=== PATIENT | female | born 1945 | race Caucasian/White ===

== ENCOUNTER 2017-05-28 08:27 | Outpatient (CLI) | payer MEDICARE ==
[2017-05-28] MEDS ORDERED: Lidocaine 2% Jelly 5 ML TUBE ONE (17:18)
[2017-05-28] MEDS ORDERED: Sodium Chloride 0.9% 15 ML NEB ONE (17:18)
--- NOTE | 2017-05-29 10:47 | PRG ---
DATE OF SERVICE: 05/28/2017 CHIEF COMPLAINT: Two wounds on the right foot. HISTORY OF PRESENT ILLNESS: This is a 72-year-old female who presents to the clinic today with multi ple wounds on her right lower leg. She states that these have been there for several months, possibl y since January. She says it is unknown as to how they developed, just started nursing them and they were initially treated with Medihoney, although today when she presents, she has Adaptic and alginate dressing and placed over the wounds. She has been at the [facility], but will b e soon going home with home health for wound care. She has had significant infections, is on PICC li ne and is taking Flagyl and rifampin currently. Relates some minor pain to the wound site. Past surgical history, medications, allergies, family history and social history are documented on paper chart. REVIEW OF SYSTEMS: Constitutional: Denies nausea, vomiting, fevers or chills. Musculoskeletal: Re lates decreased in mobility and pain to the lower extremities. Neurologic: Denies numbness or tingl ing in the foot. PAST SURGICAL HISTORY: Of note is a fem-pop pass to the right lower extremity. PHYSICAL EXAMINATION: VITAL SIGNS: Temperature 97.5, pulse 60, respirations 17, blood pressure 141/62, blood sugar was 114 this morning. CONSTITUTIONAL: The patient is in no acute distress. She is alert and oriented x3. She is overweig ht, but her appearance is consistent with her age. VASCULAR EXAMINATION: Dorsalis pedis and posterior tibial pulses were nonpalpable. I reviewed her r ecent CTA with run-off which did show three-vessel run-off to the foot following her fem-pop bypass. NEUROLOGIC EXAMINATION: Light touch and protective threshold are grossly intact. DERMATOLOGICAL EXAMINATION: There is a right wound on the plantar posterior aspect of the heel. Thi s is a 100% dry stable eschar measures 3.5 cm x 3.5 cm x 0.1 cm. There is no tenderness to palpation . No periwound erythema, edema, or warmth, no drainage or other signs of infection. On the posterio r aspect of the right Achilles tendon, lower leg, there is a 3 cm x 4 cm x 0.4 cm in depth wound and has a 30% granulation tissue around 40% slough and 30% of tendon within the wound, so the Achilles te ndon is exposed with plantar flexion, dorsiflexion of the ankle is clearly visible. No periwound yolanda thema, edema, or warmth, no drainage. No malodor. ASSESSMENT: Unstageable pressure ulcers to the posterior aspect of the right leg x2. PLAN: 1. This can be difficult wounds into healed first and foremost, we need to remove the pressure from the area and so appropriate offloading should be performed whenever in bed or seated. 2. Going to attempt to get some granulation tissue performed over the tendon and on the posterior le g, we start with collagen dressing Promogran to this area. 3. On the pressure ulceration, I am going to see if we know that she has sufficient blood flow to th e leg, we can destabilize the eschar and debride it and hopefully get this to be more acute wound whi ch will actively heal, so applied DuoDERM to this wound. 4. She will follow up with me in 1 week and we will reevaluate and determine if this treatment plan is appropriate for continued therapy or she can return sooner should she have any concerns before james t time.
== END 2017-05-28 08:28 | disposition home or self-care (01) ==
LOC: WCC 08:27
PROVIDERS: ATTEND Podiatrist Foot & Ankle Surgery
DX: L89.890 Pressure ulcer of other site, unstageable (principal)
CPT/HCPCS: 97139; 97602; G0463; 99204; A4218

== ENCOUNTER 2017-06-03 14:00 | Outpatient (CLI) | payer MEDICARE ==
--- NOTE | 2017-06-03 20:37 | HP ---
DATE OF SERVICE: 06/03/2017 HISTORY OF PRESENT ILLNESS: Ms. Sachi Negron is a very pleasant 72-year-old who presents to the wound center for evaluation of 2 ulcerations of the right foot. One ulceration is located over the r ight heel, another ulceration is located over the right Achilles tendon. The patient states that she developed multiple blisters of her right lower extremity after undergoing surgery in January of this year. Specifically, the patient underwent surgery for infected right total knee with Streptococcus s pecies. During the patient's hospital stay, she was seen in consultation by Dr. Brad Prieto of Inf ectious Diseases and is still receiving IV antibiotics under the direction of Infectious Diseases. T he patient states that she will complete a course of Rocephin IV in 9 more days. The patient states that subsequent to the preceding procedure, she was transferred to [facility] where treatment for the ulcerations consisted of debridement in conjunction with dressing changes. The patient states that s he received a trial of Medihoney as well as a trial of Promogran and Adaptic. She states that at [facility] also a trial of Betadine applied to the wounds was undertaken. The patient states that her ul cerations have been dressed with Kerlix. The patient states that she developed multiple blisters of her right lower extremity after surgery for the infected right total knee in January of this year. Sh e states that of the wounds, which developed from the blisters only 2 remain. The patient was transf erred to [facility] after a stay at [facility] and Ms. Negron states that she has been discharge d from [facility] and is now receiving dressing changes with the assistance of Home Health. T he patient was referred to the Wound Center by Dr. Hill. PAST MEDICAL HISTORY: 1. Diabetes mellitus. 2. Hypertension. 3. Hypothyroidism. 4. Coronary artery disease. 5. Osteoarthritis. 6. Hepatitis A. 7. Obstructive sleep apnea. 8. Peripheral vascular disease. 9. Nephrolithiasis. PAST SURGICAL HISTORY: 1. Coronary artery bypass grafting. 2. Hysterectomy. 3. Right rotator cuff repair. 4. Tonsillectomy. 5. Bunionectomy. 6. Right humerus surgery. 7. Pacemaker placement. 8. Left knee arthroplasty. 9. Back surgery x2. 10. Carotid surgery. 11. Vulvar surgery. 12. Right knee replacement. 13. Left shoulder surgery. 14. Bilateral cataract surgery. 15. Appendectomy. 16. Surgery for infected right total knee with Streptococcus species, which included placement of an tibiotic spacer. 17. Right iliofemoral endarterectomy with patch angioplasty/right common femoral to above knee popli teal artery bypass. MEDICATIONS: 1. Aspirin 81 mg. 2. Atenolol. 3. Escitalopram. 4. Gabapentin. 5. Lantus. 6. Levothyroxine. 7. Lisinopril. 8. Metformin. 9. Laurel. 10. Simvastatin. 11. Flagyl. 12. Rifampin. 13. Triamterene. 14. Vitamin D. ALLERGIES: PLAVIX, PENICILLIN, SULFA, CODEINE, and TORADOL. SOCIAL HISTORY: Social significant for tobacco use in the past. The patient states that she began s moking at 17 years of age and stopped smoking 12 years ago. She states that over this period of time , she smoked up to 2 packs of cigarettes per day. The patient states that she stopped consuming alco hol 12 years ago. She states that she consumed alcohol on a "social" basis in the past. FAMILY HISTORY: Significant for diabetes mellitus. The patient states that her mother, father, and all of her siblings were diagnosed with diabetes mellitus. Family history is significant for coronar y artery disease. The patient states that her father was diagnosed with coronary artery disease. PHYSICAL EXAMINATION: VITAL SIGNS: Temperature 97.4, pulse 64, respirations 17, blood pressure 125/61, Accu-Chek 173. GENERAL: A 72-year-old female sitting on wheelchair in examination room in no acute distress. HEENT: Normocephalic, atraumatic. NECK: No nuchal rigidity. CHEST: Clear to auscultation. CARDIAC: Regular rate and rhythm. ABDOMEN: Soft. EXTREMITIES: An ulceration of the right heel is present, which measures approximately 3.8 x 3.8 cm. The entire wound bed is covered by dry stable eschar. Another ulceration over the right Achilles te ndon is present, which measures approximately 3.0 x 4.0 cm. Granulation tissue is present only over the periphery of the wound. Tendon is visible within the wound margins. No purulent drainage is ass ociated with the wound. No cellulitis of the right foot is appreciated. No maceration of the skin o f the periwound is noted. A dorsalis pedis pulse is easily palpable on the right. Mild to moderate edema of the right foot is present on today's exam. ASSESSMENT AND PLAN: 1. Ulcerations of right heel as described above. Arrangements will be made for the initiation of ne gative pressure therapy for the ulceration over the right Achilles tendon. Arrangements will be made for dressing changes of the wound VAC 3 times per week with the assistance of home health. I will s ee Ms. Negron again in one week. Silverlon, Webril, and the Lyst Coban two-layer compression system adamaris l be applied to the ulcerations of the right foot today. These dressing will be discontinued once ne gative pressure therapy is initiated. The patient, as stated above, is receiving IV antibiotics as w ell as p.o. antibiotics under the direction of Infectious Diseases. 2. Hypertension. 3. Diabetes mellitus. The patient's Accu-Chek in clinic today is 173. The patient has been told th at for optimal wound healing, her blood glucoses should remain below 150. 4. Hypothyroidism. 5. Coronary artery disease. 6. Osteoarthritis. 7. Hepatitis A. 8. Obstructive sleep apnea. 9. Peripheral vascular disease. 10. Nephrolithiasis.
== END 2017-06-03 14:01 | disposition home or self-care (01) ==
LOC: WCC 14:00
PROVIDERS: ATTEND Family Medicine
DX: L97.419 Non-pressure chronic ulcer of right heel and midfoot with unspecified severity (principal); E03.9 Hypothyroidism, unspecified; I25.10 Atherosclerotic heart disease of native coronary artery without angina pectoris; M19.90 Unspecified osteoarthritis, unspecified site; B15.9 Hepatitis A without hepatic coma; G47.33 Obstructive sleep apnea (adult) (pediatric); I73.9 Peripheral vascular disease, unspecified; N20.0 Calculus of kidney
CPT/HCPCS: 97139; 97602; G0463; 99204

== ENCOUNTER 2017-06-16 14:09 | Outpatient (CLI) | payer MEDICARE ==
--- NOTE | 2017-06-16 17:12 | PRG ---
DATE OF SERVICE: 06/16/2017 SUBJECTIVE: Ms. Sachi Negron is a very pleasant 72-year-old who presents to the Wound Center for evaluation of 2 ulcerations of the right foot. One ulceration is located over the right heel. Anot her ulceration is located over the right Achilles tendon. The patient previously stated that she dev eloped multiple blisters of her right lower extremity after undergoing surgery in 01/2017. Specifica lly, the patient underwent surgery for infected right total knee with Streptococcus species. During the patient's hospital stay, she was seen in consultation by Dr. Brad Prieto of Infectious Diseases . The patient today states that she has completed the prescribed course of IV antibiotics as per Inf ectious Diseases. The patient stated that subsequent to the preceding procedure, she was transferred to [facility] where treatment for the ulcerations consisted of debridement in conjunction with dressi ng changes. The patient stated that she received a trial of Medihoney as well as a trial of Promogra n and Adaptic. The patient stated that at [facility], also a trial of Betadine applied to the wound w as undertaken. The patient stated that her ulcerations had been dressed with Kerlix prior to being s een in the Wound Center. The patient was transferred to [facility] after a stay at [facility] and after discharge from [facility] received dressing changes with the assistance of Home [facility]. Ms. Negron was referred to the Wound Center by Dr. Hill. After being seen in the Wound Center, arrangements were made for the initiation of negative pressure therapy for the ulceration ove r the right Achilles tendon. The patient has been receiving dressing changes of the wound VAC 3 time s per week with the assistance of Home Health. OBJECTIVE: VITAL SIGNS: Temperature 97.8, pulse 65, respirations 18, blood pressure 140/59. Accu-Chek 178. EXTREMITIES: An ulceration of the right heel is present, which measures approximately 4.0 x 3.5 cm. The entire wound bed is again covered by dry stable eschar. Another ulceration over the right Achil les tendon is present, which measures approximately 3.3 x 3.0 cm. Granulation tissue is present with in the wound margins. It is still visible within the wound margins. No purulent drainage is associa teresa with the wound. No cellulitis of the right foot is appreciated. No maceration of the skin of th e periwound is noted. ASSESSMENT AND PLAN: 1. Ulcerations of right heel as described above. For the ulceration over the right Achilles tendon, negative pressure therapy will be continued with dressing changes of the wound VAC 3 times per week with the assistance of Home Health. The ulceration is covered by dry stable eschar is to be kept juanita an and dry. I will see Ms. Negron again in 3 weeks. As stated above, the patient has completed the p rescribed course of IV antibiotics as per Infectious Diseases. 2. Hypertension. 3. Diabetes mellitus. The patient's Accu-Chek in clinic today is 178. The patient has been reminde d that for optimal wound healing, her blood glucoses should remain below 150. 4. Hypothyroidism. 5. Coronary artery disease. 6. Osteoarthritis. 7. Hepatitis A. 8. Obstructive sleep apnea. 9. Peripheral vascular disease. 10. Nephrolithiasis.
== END 2017-06-16 14:10 | disposition home or self-care (01) ==
LOC: WCC 14:09
PROVIDERS: ATTEND Family Medicine
DX: E11.621 Type 2 diabetes mellitus with foot ulcer (principal); L97.419 Non-pressure chronic ulcer of right heel and midfoot with unspecified severity; E03.9 Hypothyroidism, unspecified; G47.33 Obstructive sleep apnea (adult) (pediatric); I10 Essential (primary) hypertension; I25.10 Atherosclerotic heart disease of native coronary artery without angina pectoris; N20.0 Calculus of kidney; M19.90 Unspecified osteoarthritis, unspecified site; I73.9 Peripheral vascular disease, unspecified
CPT/HCPCS: 97605

== ENCOUNTER 2017-07-07 11:33 | Outpatient (CLI) | payer MEDICARE ==
--- NOTE | 2017-07-07 13:43 | PRG ---
DATE OF SERVICE: 07/07/2017 HISTORY: Ms. Sachi Negron is a very pleasant 72-year-old, who presents to the Wound Center for e valuation of 2 ulcerations of the right foot. One ulceration is located over the right heel and anot her ulceration is located over the right Achilles tendon. The patient previously stated that she dev eloped multiple blisters of her right lower extremity after undergoing surgery in 01/2017. Specifica lly, the patient underwent surgery for infected right total knee with Streptococcus species. During the patient's hospital stay, she was seen in consultation by Dr. Brad Prieto of Infectious Diseases . The patient previously stated that she had completed the prescribed course of IV antibiotics as pe r Infectious Diseases. The patient stated that subsequent to the preceding procedure, she was transf erred to [facility] where treatment for the ulcerations consisted of debridement in conjunction with d ressing changes. The patient stated that she received a trial of Medihoney as well as a trial of Pro mogran and Adaptic. The patient stated that at [facility] also a trial of Betadine applied to the wou nd was undertaken. The patient stated that her ulcerations had been dressed with Kerlix prior to leo ng seen in the Wound Center. The patient was transferred to [facility] after a stay at [facility] and and after discharge from [facility], the patient received dressing changes with the assist hailey of Home Health. Ms. Negron was referred to the Wound Center by Dr. Hill. After being s een in the Wound Center, arrangements were made for the initiation of negative pressure therapy for t he ulceration over the right Achilles tendon. The patient has been receiving dressing changes of the wound VAC 3 times per week with the assistance of Home Health. PHYSICAL EXAMINATION: VITAL SIGNS: Temperature 97.5, pulse 60, respirations 17, and blood pressure 95/48. EXTREMITIES: An ulceration of the right heel is present, which measures approximately 4.4 x 4.4 cm. The entire wound bed is again covered by dry stable eschar. Another ulceration over the right Achil les tendon is present, which measures approximately 3.0 x 2.5 cm. Granulation tissue is present with in the wound margins. No purulent drainage is associated with the wound. No cellulitis of the right foot is appreciated. No maceration of the skin of the periwound is noted. A dorsalis pedis pulse i s easily palpable on the right. No significant edema of the right foot is present on exam today. ASSESSMENT AND PLAN: 1. Ulceration of right heel as described above. For the ulceration over the right Achilles tendon, negative pressure therapy will be continued with dressing changes of the wound VAC 3 times per week w ith the assistance of Home Health. The ulceration covered by dry stable eschar is to be kept clean a nd dry. I will see Ms. Negron again in one week. I have explained to the patient that because the ul ceration over the right Achilles tendon has been present for 4 weeks and because she has an easily pa lpable dorsalis pedis pulse on the right. She is a suitable candidate for treatment with a bioengine ered skin substitute, specifically Dermagraft. At the time of the patient's visit in 1 week, conside ration will be given to treatment with Dermagraft. The patient understands and is in agreement with the preceding treatment plan. As stated above, the patient has completed a prescribed course of IV a ntibiotics as per Infectious Diseases. 2. Hypertension. 3. Diabetes mellitus. Accu-Cheks will be obtained at the time of the patient's clinic visits. The patient has been reminded that for optimal wound healing. Her blood glucoses should remain below 150 . 4. Hypothyroidism. 5. Coronary artery disease. 6. Osteoarthritis. 7. Hepatitis A. 8. Obstructive sleep apnea. 9. Peripheral vascular disease. 10. Nephrolithiasis.
== END 2017-07-07 11:34 | disposition home or self-care (01) ==
LOC: WCC 11:33
PROVIDERS: ATTEND Family Medicine
DX: E11.621 Type 2 diabetes mellitus with foot ulcer (principal); L97.419 Non-pressure chronic ulcer of right heel and midfoot with unspecified severity; I10 Essential (primary) hypertension; E03.9 Hypothyroidism, unspecified; I25.10 Atherosclerotic heart disease of native coronary artery without angina pectoris; M19.90 Unspecified osteoarthritis, unspecified site; G47.33 Obstructive sleep apnea (adult) (pediatric); I73.9 Peripheral vascular disease, unspecified; N20.0 Calculus of kidney
CPT/HCPCS: 36416; 97606

== ENCOUNTER 2017-07-14 13:14 | Outpatient (CLI) | payer MEDICARE ==
--- NOTE | 2017-07-14 11:32 | PRG ---
DATE OF SERVICE: 07/14/2017 HISTORY: Ms. Sachi Negron is a very pleasant 72-year-old who presents to the Wound Center for evalu ation of 2 ulcerations of the right foot. One ulceration is located over the right heel and another ulceration is located over the right Achilles tendon. The patient previously stated that she develop ed multiple blisters of her right lower extremity after undergoing surgery in 01/2017. Specifically, the patient underwent surgery for infected right total knee with Streptococcus species. During the patient's hospital stay, she was seen in consultation by Dr. Brad Prieto of Infectious Diseases. T he patient previously stated that she had completed the prescribed course of IV antibiotics as per In fectious Diseases. The patient stated that subsequent to the preceding procedure, she was transferre to [facility] where treatment with the ulcerations consisted of debridement in conjunction with dres sing changes. The patient stated that she received a trial of Medihoney as well as a trial of Promog ran and Adaptic. The patient stated that at [facility] also a trial of Betadine applied to the wound was undertaken. The patient stated that her ulcerations had been dressed with Kerlix prior to being seen in the Wound Center. The patient was transferred to [facility] after a stay at [facility] and after discharge from [facility], the patient received dressing changes with the assistanc e of Home Health. Ms. Negron was referred to the Wound Center by Dr. Hill. After being seen in the Wound Center, arrangements were made for the initiation of negative pressure therapy for the ulceration over the right Achilles tendon. The patient continues to receive dressing changes of the wound VAC 3 times per week with the assistance of Home Health. OBJECTIVE: VITAL SIGNS: Temperature 97.5, pulse 60, respirations 17, blood pressure 105/40. Accu-Chek 140. EXTREMITIES: An ulceration of the right heel is present which measures approximately 3.0 x 4.2 cm. The entire wound bed is again covered by dry stable eschar. Another ulceration over the right Achill es tendon is present which measures approximately 2.9 x 3.5 cm. The dimensions of the wound at the t stephanie of the patient's last visit were approximately 3.0 x 2.5 cm. Granulation tissue is present withi n the wound margins. No purulent drainage is associated with the wound. No cellulitis of the right foot is appreciated. No maceration of the skin of the periwound is noted. A dorsalis pedis pulse is easily palpable on the right. No significant edema of the right foot is present on exam today. ASSESSMENT AND PLAN: 1. Ulceration of right heel as described above. For the ulceration over the right Achilles tendon, negative pressure therapy will be discontinued today. The ulceration will be dressed with Silverlon, Webril, and 3M Coban 2-layer compression system. I will see Ms. Negron again in one week. I have re iterated to the patient that she is a suitable candidate for treatment with Dermagraft because the ul ceration over the right Achilles tendon has been present since 06/03/2017, and because she has an eas maxine palpable dorsalis pedis pulse on the right. At the time of the patient's visit in 1 week, consid eration will be given to treatment with Dermagraft. The patient understands and is in agreement with the preceding treatment plan. As stated above, the patient has completed the prescribed course of I V antibiotics as per Infectious Diseases. 2. Hypertension. 3. Diabetes mellitus. The patient's Accu-Chek in clinic today is 140. The patient has been reminde d that for optimal wound healing, her blood glucoses should remain below 150. A hemoglobin A1c will be obtained today. 4. Hypothyroidism. 5. Coronary artery disease. 6. Osteoarthritis. 7. Hepatitis A. 8. Obstructive sleep apnea. 9. Peripheral vascular disease. 10. Nephrolithiasis.
== END 2017-07-14 13:15 | disposition home or self-care (01) ==
LOC: WCC 13:14
PROVIDERS: ATTEND Family Medicine
DX: E11.621 Type 2 diabetes mellitus with foot ulcer (principal); L97.419 Non-pressure chronic ulcer of right heel and midfoot with unspecified severity; I10 Essential (primary) hypertension; E03.9 Hypothyroidism, unspecified; I25.10 Atherosclerotic heart disease of native coronary artery without angina pectoris; M19.90 Unspecified osteoarthritis, unspecified site; G47.33 Obstructive sleep apnea (adult) (pediatric); I73.9 Peripheral vascular disease, unspecified; N20.0 Calculus of kidney; B15.9 Hepatitis A without hepatic coma
CPT/HCPCS: 29581; 36415; 83036

== ENCOUNTER 2017-07-21 08:49 | Outpatient (CLI) | payer MEDICARE ==
--- NOTE | 2017-07-21 09:57 | PRG ---
DATE OF SERVICE: 07/21/2017 HISTORY: Ms. Sachi Negron is a very pleasant 72-year-old who presents to the Wound Center for evalu ation of 2 ulcerations of the right foot. One ulceration is located over the right heel and an anoth er ulceration is located over the right Achilles tendon. The patient previously stated that she deve loped multiple blisters of her right lower extremity after undergoing surgery in 01/2017. Specifical ly, the patient underwent surgery for infected right total knee with Streptococcus species. During t he patient's hospital stay, she was seen in consultation by Dr. Brad Prieto of Infectious Diseases. The patient previously stated that she had completed the prescribed course of IV antibiotics as per Infectious Diseases. The patient stated that subsequent to the preceding procedure, she was transfe rred to [facility] where treatment for the ulcerations consisted of debridement in conjunction with dr roya mac. The patient stated that she received a trial of Medihoney as well as a trial of Prom ogran and Adaptic. The patient stated that at [facility], also a trial of Betadine applied to the wou nd was undertaken. The patient stated that her ulcerations had been dressed with Kerlix prior to leo ng seen in the Wound Center. The patient was transferred to [facility] after a stay at [facility] and and after discharge from [facility], the patient received dressing changes with the assist hailey of Home Health. Ms. Negron was referred to the Wound Center by Dr. Hill. After being s een in the Wound Center, arrangements were made for the initiation of negative pressure therapy for t he ulceration over the right Achilles tendon. The patient has completed a course of negative pressur e therapy for the ulceration over the right Achilles tendon. PHYSICAL EXAMINATION: VITAL SIGNS: Temperature 98.1, pulse 60, respirations 18, blood pressure 208/81, Accu-Chek 140. EXTREMITIES: An ulceration of the right heel is present, which measures approximately 3.5 x 5.5 cm. The entire wound bed is again covered by dry stable eschar. Another ulceration over the right Achil les tendon is present, which measures approximately 3.4 x 2.8 cm. The dimensions of the wound at the time of the patient's last visit were approximately 2.9 x 3.5 cm. Granulation tissue is present wit hin the wound margins. No purulent drainage is associated with the wound. No cellulitis of the righ t foot is appreciated. No maceration of the skin of the periwound is noted. A dorsalis pedis pulse is easily palpable on the right. No significant edema of the right foot is present on exam today. ASSESSMENT AND PLAN: 1. Ulceration of right heel as described above. For the ulceration over the right Achilles tendon, dressing changes of Silverlon, Webril, and the 3M Coban two-layer compression system will be continue d. I will see Ms. Negron again in one week. At this time, consideration will be given to treatment w ith Dermagraft. I have again reiterated to the patient that she is a suitable candidate for treatmen t with Dermagraft, because the ulceration over the right Achilles tendon has been present since 06/03 and because she has an easily palpable dorsalis pedis pulse on the right. The patient understa nds and is in agreement with the preceding treatment plan. As stated above, the patient has complete d the prescribed course of IV antibiotics as per Infectious Diseases. 2. Hypertension. 3. Diabetes mellitus. The patient's Accu-Chek in clinic today is 140. The patient has been reminde d that for optimal wound healing, her blood glucoses should remain below 150. 4. Hypothyroidism. 5. Coronary artery disease. 6. Osteoarthritis. 7. Hepatitis A. 8. Obstructive sleep apnea. 9. Peripheral vascular disease. 10. Nephrolithiasis.
[2017-07-23] MEDS ORDERED: Sodium Chloride 0.9% 15 ML NEB ONE (15:56)
== END 2017-07-21 08:50 | disposition home or self-care (01) ==
LOC: WCC 08:49
PROVIDERS: ATTEND Family Medicine
DX: E11.622 Type 2 diabetes mellitus with other skin ulcer (principal); L97.419 Non-pressure chronic ulcer of right heel and midfoot with unspecified severity; E03.9 Hypothyroidism, unspecified; I10 Essential (primary) hypertension; I25.10 Atherosclerotic heart disease of native coronary artery without angina pectoris; M19.90 Unspecified osteoarthritis, unspecified site; B15.9 Hepatitis A without hepatic coma; G47.33 Obstructive sleep apnea (adult) (pediatric); I73.9 Peripheral vascular disease, unspecified; N20.0 Calculus of kidney
CPT/HCPCS: 29581

== ENCOUNTER 2017-07-28 09:23 | Outpatient (CLI) | payer MEDICARE ==
--- NOTE | 2017-07-28 11:36 | PRG ---
DATE OF SERVICE: 07/28/2017 HISTORY: Ms. Sachi Negron is a very pleasant 72-year-old who presents to the Wound Center for evalu ation of 2 ulcerations of the right foot. One ulceration is located over the right heel and another ulceration is located over the right Achilles tendon. The patient previously stated that she develop ed multiple blisters of her right lower extremity after undergoing surgery in 01/2017. Specifically, the patient underwent surgery for infected right total knee with Streptococcus species. During the patient's hospital stay, Ms. Negron was seen in consultation by Dr[facility]. The patient previously stated that she had completed the prescribed course of IV antibiotics as per Infectious Diseases. The patient stated that subsequent to the preceding procedure, she was [place] sferred to [facility] where she underwent treatment for the ulcerations consisting of debridement in c onjunction with dressing changes. The patient stated that she received a trial of Medihoney as well as a trial of Promogran and Adaptic. The patient stated that at [facility], also a trial of Betadine applied to the wound was undertaken. The patient stated that her ulcerations had been dressed with K erlix prior to being seen in the Wound Center. The patient was transferred to [facility] afte r a stay at [facility] and after discharge from [facility], the patient received dressing [facility] with the assistance of Home Health. Ms. Negron was referred to the Wound Center by Dr. Rupal lopez. After being seen in the Wound Center, arrangements were made for the initiation of negative pres sure therapy for the ulceration over the right Achilles tendon. The patient has completed a course o f negative pressure therapy for the ulceration over the right Achilles tendon. PHYSICAL EXAMINATION: VITAL SIGNS: Temperature 97.8, pulse 60, respirations 18, blood pressure 125/58. Accu-Chek 142. EXTREMITIES: An ulceration over the right heel is present, which measures approximately 3.4 x 3.3 cm . The entire wound bed is again covered by dry stable eschar. Another ulceration over the right Ach illes tendon is present, which measures approximately 2.5 x 3.2 cm. The dimensions of the wound at t he time of the patient's last visit were approximately 3.4 x 2.8 cm. Granulation tissue is present w ithin the wound margins. No purulent drainage is associated with the wound. No cellulitis of the ri ght foot is appreciated. No maceration of the skin of the periwound is noted. A dorsalis pedis puls e is easily palpable on the right. No significant edema of the right foot is present on exam today. ASSESSMENT AND PLAN: 1. Ulceration of right heel as described above. For the ulceration over the right Achilles tendon, dressing changes of Silverlon, Webril, and the 3M Coban two-layer compression system will be continu ed on a weekly basis. Home health will be assisting the patient with her dressing changes. I will s ee Ms. Negron again in two weeks. At this time, consideration will be given to treatment with Dermagr aft. I have reiterated to the patient that she is a suitable candidate for treatment with Dermagraft , because the ulceration over the right Achilles tendon has been present since 06/03/2017 and because she has an easily palpable dorsalis pedis pulse on the right. The patient understands and is in agr eement with the preceding treatment plan. As stated above, the patient has completed the prescribed course of IV antibiotics as per Infectious Diseases. 2. Hypertension. 3. Diabetes mellitus. The patient's Accu-Chek in clinic today is 142. The patient has been reminde d that for optimal wound healing, her blood glucoses should remain below 150. 4. Hypothyroidism. 5. Coronary artery disease. 6. Osteoarthritis. 7. Hepatitis A. 8. Obstructive sleep apnea. 9. Peripheral vascular disease. 10. Nephrolithiasis.
== END 2017-07-28 09:24 | disposition home or self-care (01) ==
LOC: WCC 09:23
PROVIDERS: ATTEND Family Medicine
DX: E11.621 Type 2 diabetes mellitus with foot ulcer (principal); L97.419 Non-pressure chronic ulcer of right heel and midfoot with unspecified severity; I10 Essential (primary) hypertension; E03.9 Hypothyroidism, unspecified; I25.10 Atherosclerotic heart disease of native coronary artery without angina pectoris; M19.90 Unspecified osteoarthritis, unspecified site; B15.9 Hepatitis A without hepatic coma; G47.33 Obstructive sleep apnea (adult) (pediatric); I73.9 Peripheral vascular disease, unspecified; N20.0 Calculus of kidney
CPT/HCPCS: 29581

== ENCOUNTER 2017-08-07 11:57 | Inpatient (IN) | payer MEDICARE ==
[2017-08-07 13:44] LABS: Hemoglobin 11.3 g/dL (12.0-16.0); Mean Corpuscular HGB CONC 33.5 g/dL (32.0-36.0); Mean Corpuscular Hemoglobin 29.5 pg (27.0-31.0); Mean Corpuscular Volume 88.1 fl (81.0-99.0); Mean Platelet Volume 8.2 fL (7.4-10.4); Platelet Count 148 thou/uL (130-400); RBC Distribution Width 15.2 % (11.5-14.5); Red Blood Cell (RBC) Count 3.85 mill/uL (4.20-5.40); White Blood Cell (WBC) Count 17.5 thou/uL (4.8-10.8)
[2017-08-07 13:50] LABS: INR-International Normal Ratio 1.2; PTT 48.9 SEC (22.9-36.1); Prothrombin Time 15.9 SEC (12.0-14.7)
[2017-08-07] MEDS ORDERED: Ondansetron HCl/PF 4 MG/2 ML Vial ONE (14:00)
[2017-08-07] MEDS ORDERED: Cefepime 2 GM/10 ML SYR ONE (14:01)
[2017-08-07] MEDS ORDERED: Clindamycin/D5W 900 mg/50 ml Premix Bag ONE (14:01)
[2017-08-07 14:04] LABS: Anisocytosis SLIGHT = 6-15 cells (100X) (0-5/hpf); Band 25 % (5-11); Lymphocytes 3 % (21-51); MDiff Complete? YES; Monocytes 2 % (0-10); Neutrophil 70 % (42-75); Ovalocytes SLIGHT = 2-5 cells (100X) (0-1/hpf); PLT Morphology Comment Appears Adequate; Polychromasia SLIGHT = 2-3 cells (100X) (0-2/hpf)
[2017-08-07 14:05] LABS: ALT (SGPT) 14 U/L (8-55); AST (SGOT) 13 U/L (5-34); Albumin 3.7 g/dL (3.4-4.8); Alkaline Phosphatase 87 U/L (40-150); Anion Gap 13 mmol/L (10-20); BUN (Urea Nitrogen) 28 mg/dL (9.8-20.1); Bilirubin, Total 0.7 mg/dL (0.2-1.2); Calc. Creatinine Clearance 0 mL/min (70-130); Calcium 9.8 mg/dL (7.8-10.44); Carbon Dioxide 27 mmol/L (23-31); Chloride 99 mmol/L (98-107); Estimated GFR-MDRD 49; Globulin 2.9 g/dL (2.4-3.5); Glucose 144 mg/dL (83-110); Protein, Total 6.6 g/dL (6.0-8.3); Sodium 135 mmol/L (136-145)
--- NOTE | 2017-08-07 14:27 | RAD ---
PORTABLE AP CHEST: Date: 08/07/17 HISTORY: Metal door fell on patient's right foot. Second toenail is hanging off. Patient has a fever. COMPARISON: 01/09/17. FINDINGS: A triple lead left subclavian cardiac pacemaking device is noted in place. Postsurgical changes relat ed to CABG are again noted. Cardiac silhouette is enlarged. Pulmonary vasculature is within normal li mits. Calcified granuloma is seen at the right lung base. Lungs are otherwise clear. Vascular calcifi cations are seen in the thoracic aorta. Chest is stable when compared to the prior exam. IMPRESSION: 1. No acute cardiopulmonary process. 2. Cardiomegaly. POS: [facility]
[2017-08-07 16:02] LABS: Bilirubin Negative (Negative); Blood, Urine Negative (Negative); Clarity CLEAR (Clear); Glucose, Urine (Dipstick) Negative (Negative); Leukocyte Small (Negative); Nitrite Negative (Negative); Protein, Urine (Dipstick) Negative (Neg-Trace); Specific Gravity, Urine 1.014 (1.002-1.036); Urobilinogen 0.2 mg/dL (0.2-1.0)
[2017-08-07 16:03] LABS: Bacteria/HPF None Seen HPF (None Seen); Hyaline Casts/LPF 4-6 HYALINE CAST LPF (0-3 Hyaline); Pathc Cast-AUWi Flag 0.94 (0-2.49); RBC/HPF None Seen HPF (0-3)
--- NOTE | 2017-08-07 16:11 | ULT ---
RIGHT LOWER EXTREMITY VENOUS DOPPLER WITH SPECTRAL ANALYSIS AND COLOR FLOW EVALUATION: Date: 08/07/17 HISTORY: Right lower extremity pain and redness and edema for 7+ months. Patient has history of prior cardiac bypass in March 2017. FINDINGS: Thompson scale, color flow, Doppler evaluation, and spectral analysis of the right lower extremity venous structures is performed with 2D imaging. The right lower extremity common femoral, superficial femor al, popliteal, posterior tibial, most proximal greater saphenous, and profunda femoral veins are imag ed. FINDINGS: There is normal lumen compressibility and flow seen within the right common femoral, profunda femoral , and proximal and mid superficial femoral veins. The distal right superficial femoral vein is not we ll seen on Thompson scale imaging, although flow is present in this vein. Normal lumen compressibility an d flow is seen within the right lower extremity popliteal vein. There is flow demonstrated within the posterior tibial vein and visualized proximal greater saphenous and profunda femoral veins. There is a complex multiloculated cystic structure seen in the subcutaneous soft tissues of the mid r ight thigh which is immediately adjacent to the vascular structures. This structure measures 2.4 cm x 1.8 cm x 2.1 cm. This is immediately above the right lower extremity superficial femoral artery. No flow is seen in this structure on color flow evaluation. Flow is present in the right superficial fem oral artery at this level. Complex multiloculated cystic structure in the superficial subcutaneous soft tissues of the mid right thigh. Findings could be related to hematoma in this region. Infection could not be entirely exclude d, but there is no subcutaneous edema present. IMPRESSION: 1. Nonvisualization of the distal superficial femoral vein on Thompson scale imaging which limits evalua tion for nonocclusive thrombus. However, there is flow within this vein, and there is no evidence of an occlusive thrombus. There is otherwise no evidence of a deep venous thrombosis involving the remai sina visualized deep venous structures right lower extremity. 2. Multiloculated complex cystic structure in the anterior superficial soft tissues of the right mid thigh immediately adjacent to and above the right superficial femoral artery. No flow is demonstrate d in this structure. This may represent a hematoma, but this cannot be definitively determined based on this exam. Infection cannot be entirely excluded, but no adjacent edema is present. Clinical corre lation is recommended. POS: [facility]
[2017-08-07] MEDS ORDERED: Dextrose 50% Abboject 50 ML SYRINGE SLOW IVP PRN (18:09)
[2017-08-07] MEDS ORDERED: Dextrose 5% in Water 1,000 ML IV PRN (18:09)
[2017-08-07] MEDS ORDERED: HumaLOG 300 UNITS/3 ML VIAL SC PRN (18:09)
[2017-08-07] MEDS ORDERED: Ondansetron ODT 4 MG TAB PO PRN (18:09)
[2017-08-07] MEDS ORDERED: Enoxaparin Sodium 40 MG/0.4 ML SYRINGE SC SCH (18:09)
[2017-08-07] MEDS: Sodium Chloride 0.9% 1,000 ML IV SCH (19:29)
[2017-08-07 19:38] LABS: Lactic Acid 2.7 mmol/L (0.5-2.2)
[2017-08-07] MEDS: cefTRIAXone\\ROCEPHIN 2 GM in Sodium Chloride 0.9% 100 ML IVPB SCH (19:54)
[2017-08-07] MEDS: Famotidine 20 MG TAB PO SCH (19:55)
[2017-08-07] MEDS: Clindamycin/D5W 900 MG in Premix Bag 1 BAG IVPB SCH (22:18)
[2017-08-08] MEDS: Acetaminophen 325 MG TAB PO PRN ×3 (00:32→11:54)
[2017-08-08] MEDS: Sodium Chloride 0.9% 1,000 ML IV SCH ×4 (04:39→17:09)
[2017-08-08] MEDS: Clindamycin/D5W 900 MG in Premix Bag 1 BAG IVPB SCH ×3 (06:01→21:29)
[2017-08-08 06:32] LABS: Anion Gap 13 mmol/L (10-20); BUN (Urea Nitrogen) 23 mg/dL (9.8-20.1); Calc. Creatinine Clearance 0 mL/min (70-130); Calcium 9.3 mg/dL (7.8-10.44); Carbon Dioxide 27 mmol/L (23-31); Chloride 100 mmol/L (98-107); Estimated GFR-MDRD 48; Glucose 150 mg/dL (83-110); Magnesium 1.8 mg/dL (1.6-2.6); Potassium 4.1 mmol/L (3.5-5.1); Sodium 136 mmol/L (136-145)
[2017-08-08 06:45] LABS: #Eosinphils 0.1 thou/uL (0.0-0.7); #Monocytes 0.8 thou/uL (0.11-0.59); #Neutrophils 8.9 thou/uL (1.40-6.50); %Eosinophils 0.6 % (0.0-10.0); %Lymphocytes 9.4 % (21.0-51.0); %Monocytes 7.1 % (0.0-10.0); %Neutrophils 82.9 % (42.0-75.0); Hemoglobin 11.1 g/dL (12.0-16.0); Mean Corpuscular HGB CONC 32.7 g/dL (32.0-36.0); Mean Corpuscular Hemoglobin 29.2 pg (27.0-31.0); Mean Corpuscular Volume 89.1 fl (81.0-99.0); Mean Platelet Volume 8.4 fL (7.4-10.4); PLT Morphology Comment Appears Decreased; Platelet Count 116 thou/uL (130-400); RBC Distribution Width 15.1 % (11.5-14.5); RBC Morphology Normal; Red Blood Cell (RBC) Count 3.79 mill/uL (4.20-5.40); White Blood Cell (WBC) Count 10.7 thou/uL (4.8-10.8)
[2017-08-08] MEDS: Famotidine 20 MG TAB PO SCH ×2 (08:30→20:15)
[2017-08-08] MEDS: Enoxaparin Sodium 40 MG/0.4 ML SYRINGE SC SCH (08:30)
--- NOTE | 2017-08-08 14:30 | RAD ---
RADIOGRAPH RIGHT FOOT THREE VIEWS: Date: 08-08-17 History: 72-year-old female with right heel eschar and right hallux ulcer. FINDINGS: There is diffuse soft tissue swelling of the forefoot, especially the great toe. There is diffuse ost eopenia. No fracture or dislocation. No periosteal elevation or destructive osseous lesion identified . Mild to moderate degenerative changes in various joints. Surgical clips at the medial soft tissues of the ankle. No subcutaneous emphysema identified. IMPRESSION: 1. Soft tissue edema of the foot, especially the forefoot and especially the great toe. 2. No destructive osseous lesion identified. 3. Mild to moderate osteoarthrosis of the foot. POS: [facility]
[2017-08-08 14:42] VITALS: BMI 37.3
--- NOTE | 2017-08-08 15:45 | PDOC.PN ---
- Subjective Encounter Start Date: 08/08/17 Encounter Start Time: 15:35 Subjective: f/u for R thigh cellulitis and subq complex cystic mass seen on RLE -: doppler evaluation. Also with R great toe ulcer acute/chronic and -: chronic Achilles ulcer. Receiving Clindamycin and Rocephin. - Objective Resuscitation Status: Resuscitation Status FULL:Full Resuscitation MAR Reviewed: Yes Vital Signs & Weight: Vital Signs (12 hours) Temp Pulse Resp BP Pulse Ox 08/08/17 11:59 98.8 F 63 20 183/74 H 100 08/08/17 08:00 99.7 F H 63 20 154/70 H 98 Result Diagrams: 08/08/17 05:56 08/08/17 05:56 Additional Labs: Accuchecks 08/08/17 08/08/17 08/07/17 10:57 05:06 19:52 POC Glucose 228 H 153 H 184 H Microbiology 02/03/17 18:36 Venous blood - Left Arm Blood Culture - Final Presumptive Micrococcus sp. 08/07/17 12:47 Nasal swab Influenza Types A,B Direct EIA - Final 02/03/17 18:38 Venous blood - Right Hand Blood Culture - Preliminary NO GROWTH AT 48 HOURS 08/07/17 15:50 Urine Straight Catheter Urine Culture - Preliminary NO GROWTH AT 12 HOURS 08/07/17 13:30 Venous blood - Right Hand Blood Culture - Preliminary Specimen has been received and culture in progress. No Growth to date. 08/07/17 13:30 Venous blood - Left Arm Blood Culture - Preliminary Specimen has been received and culture in progress. No Growth to date. Laboratory Tests 02/03/17 02/06/17 08/07/17 18:11 15:09 13:30 WBC Band Neuts % (Manual) ESR Westergren 68 Creatinine 1.09 Hemoglobin A1c Lactic Acid Magnesium C-Reactive Protein 12.21 H 08/07/17 08/07/17 08/08/17 13:30 18:39 05:56 WBC 17.5 H Band Neuts % (Manual) 25 H ESR Westergren Creatinine Hemoglobin A1c Lactic Acid 2.7 H Magnesium 1.8 C-Reactive Protein 08/08/17 05:56 WBC Band Neuts % (Manual) ESR Westergren Creatinine Hemoglobin A1c 6.0 Lactic Acid Magnesium C-Reactive Protein Radiology Reviewed by me: Yes (RLE sono - no DVT, complex R thigh cystic structure) Phys Exam - Physical Examination Constitutional: NAD HEENT: PERRLA, oral pharynx no lesions Neck: no JVD, supple Respiratory: no wheezing, clear to auscultation bilateral Cardiovascular: RRR Gastrointestinal: soft, non-tender, no distention, positive bowel sounds large erythematous region of proximal R thigh laterally into buttock region, firm, TTP, N/V intact distally Musculoskeletal: pulses present Neurological: normal sensation, moves all 4 limbs R great toe with plantar ulcer Dx/Plan (1) Cellulitis and abscess of right leg Code(s): L03.115 - CELLULITIS OF RIGHT LOWER LIMB; L02.415 - CUTANEOUS ABSCESS OF RIGHT LOWER LIMB Status: Suspected Comment: ? cystic mass of proximal RLE and ? abscess, consult Gen surg in am for evaluation, continue Clindamycin and Rocephin, pain control (2) Toe ulcer Code(s): L97.509 - NON-PRESSURE CHRONIC ULCER OTH PRT UNSP FOOT W UNSP SEVERITY Status: Chronic Qualifiers: Laterality: right Comment: R great toe with ulceration, local WCT, no ossesous breakdown, see #1 above (3) right ankle ulcer over achilles tendon Status: Chronic Comment: Local WCT (4) Diabetes type 2, controlled Code(s): E11.9 - TYPE 2 DIABETES MELLITUS WITHOUT COMPLICATIONS Status: Chronic Qualifiers: Diabetes mellitus complication status: with unspecified complications Diabetes mellitus [facility] insulin use: with guide rail cleaner use Qualified Code(s) : E11.8 - Type 2 diabetes mellitus with unspecified complications; Z79.4 - television analyzer (current) use of insulin; Z79.4 - long-term (current) use of insulin; Z79.4 - television analyzer (current) use of insulin; Z79.4 - television analyzer (current) use of insulin Comment: ISS, ADA (5) Hypothyroidism Code(s): E03.9 - HYPOTHYROIDISM, UNSPECIFIED Status: Chronic Comment: Continue Levothyroxine 125mcg daily (6) Morbid obesity with BMI of 40.0-44.9, adult Code(s): E66.01 - MORBID (SEVERE) OBESITY DUE TO EXCESS CALORIES; Z68.41 - BODY MASS INDEX (BMI) 40.0-44.9, ADULT Status: Chronic (7) PVD (peripheral vascular disease) Code(s): I73.9 - PERIPHERAL VASCULAR DISEASE, UNSPECIFIED Status: Chronic Comment: S/P Right fem-pop bypass 04/13/17 (8) MARIE (acute kidney injury) Code(s): N17.9 - ACUTE KIDNEY FAILURE, UNSPECIFIED Status: Acute Comment: Continue IVF's, avoid nephrotoxic meds and limit contrast exposure - Plan plan discussed w/ family, continue antibiotics, 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 abscess -: Pain control -: WCT for local care * Continue IVF's * AM lab: BMP, CBC * NPO after MN
[2017-08-08] MEDS: Gabapentin 300 MG CAP PO SCH ×2 (17:10→20:15)
[2017-08-08] MEDS: HYDROcodone/Acetaminophen 5/325 mg Tablet PO PRN (17:10)
[2017-08-08] MEDS: cefTRIAXone\\ROCEPHIN 2 GM in Sodium Chloride 0.9% 100 ML IVPB SCH (17:54)
--- NOTE | 2017-08-08 19:14 | ULT ---
ULTRASOUND OF RIGHT HIP REGION: Date: 08/08/17 HISTORY: Patient has some cellulitis changes in the region of the right hip. This was done to evaluate for any abscess collection. FINDINGS: There are edematous changes within the soft tissues. No fluid collections are identified. IMPRESSION: No signs for abscess. POS: [facility]
[2017-08-08] MEDS: Atenolol 25 MG TAB PO SCH (20:15)
[2017-08-08] MEDS: TROSPIUM 20 MG TABLET PO SCH (20:15)
[2017-08-08] MEDS: HYDROcodone/Acetaminophen 10/325 mg Tablet PO PRN (20:16)
--- NOTE | 2017-08-08 20:29 | CON ---
DATE OF CONSULTATION: 08/08/2017 REASON FOR CONSULTATION: Inflammatory process right lower extremity. HISTORY OF PRESENT ILLNESS: A 72-year-old patient whom I had seen a few times in the past with a history of vulvar cancer in remission, type 2 diabetes, hypertension, coronary artery disease. I had seen her previously with worsening right knee inflammatory process and Dr. Gutiérrez removed the implant at that time, group B streptococcus was retrieved from the site. She was then treated with Rocephin. The patient developed pressure ulcerations, right heel and right distal posterior ankle with tendon exposure and she fell at home and was admitted with inflammatory changes in right lower extremity and the wounds described. The patient then was treated again with IV antimicrobial therapy and had complex wound care implemented as well with some marked improvement of the posterior right ankle wound with complete cover of the tendon by healthy granulation tissue. She now is brought in with worsening inflammatory changes in right lower extremity associated with weakness. No headaches, visual symptoms, sore throat, odynophagia, dysphagia, no cough, and respiratory symptoms or abdominal pain. No genitourinary symptoms. She felt diffuse weakness and could not ambulate and she had associated pain in the right lower extremity. PAST MEDICAL HISTORY: Vulvar cancer in remission after treatment, type 2 diabetes, hypertension, dyslipidemia, EDA, obesity, coronary artery disease, hepatitis A, osteoporosis, hypothyroidism, osteoarthrosis, bilateral TKRs, group B strep right implant removal, cellulitis, peripheral vascular disease with evidence of severe atherosclerotic disease of well visualized arteries and status post right iliofemoral endarterectomy with patch angioplasty and right common femoral to above knee popliteal artery bypass by Dr. Plata in March last year. Also, history of pacemaker placement, rotator cuff repair, appendectomy, hysterectomy, recurrent episodes of cellulitis. FAMILY HISTORY: Coronary artery disease. SOCIAL HISTORY: Previously [facility], . Former smoker. ALLERGIES: PLAVIX, KETOROLAC, PENICILLIN, SULFA DRUGS, TIZANIDINE. CURRENT MEDICATIONS: Tylenol, [place], ceftriaxone, clindamycin, dextrose, insulin. PHYSICAL EXAMINATION: GENERAL: Appears chronically ill, but no acute distress. VITAL SIGNS: Temperature max 101.3, now 98.8, blood pressure 180/74, pulse 63, respirations 20, O2 sat 100% on 2 liters nasal cannula. SKIN: Shows the necrotic eschar on the right heel posterior aspect. There is the ulcer, right posterior ankle with 100% granulation tissue covering tendon this time. The area of erythema has subsided significantly in the leg, but still present in the proximal thigh wrapping around the posterior gluteal region quite tender to palpation. She has a peripheral IV access and no Ryder catheter. HEENT: Ocular movements are conjugate. Sclerae are white. Pupils are equal and reactive. Conjunctivae somewhat pale. Oral cavity with no obvious abnormalities except for a dental decay and gum disease. NECK: Supple, no jugular venous distention. LUNGS: With symmetric clear breath sounds. HEART: S1, S2, regular rate. No S3 or S4. ABDOMEN: Soft, not distended or tender. No ascites. No bladder distention. EXTREMITIES: She is able to move all extremities, but she is diffusely weak. NEUROLOGIC: Cognitive function appears to be intact. LABORATORY DATA: White cell count down from 17 to 10, platelets down to 116,000 , hemoglobin 11, MCV 89 with predominance of mature neutrophils. INR 1.2. Sodium 136, creatinine 1.12, which is a bit higher than her baseline. The liver profile is normal. CRP 11, albumin 3.7. Urinalysis with 11 to 20 wbc's. Thus far, microbiology with 2 sets of blood cultures, which are no growth. Urine culture no growth. Influenza A and B are negative. ASSESSMENT: 1. Type 2 diabetes with osteoarthrosis with prior TKRs and then infected right TKR, which led to implant removal. Peripheral vascular disease with revascularization a few months ago in the right side, pressure ulcerations in the right heel and posterior ankle with marked improvement of the ankle ulcer with 100% granulation with persistence of the necrotic eschar in the right heel , but no inflammatory changes there. Patient also has a right first toe ulceration, which has purulent drainage and this was submitted for cultures. 2. Cellulitis, right lower extremity. DISCUSSION: Patient appears to have cellulitis right lower extremity. She has different areas of potential entry in the distal aspects of the right lower extremity. The usual pathogens include Beta hemolytic Streptococci Staph aureus , gram negative rods. She seems to be improving, although still has quite a bit of inflammatory changes in right lower extremity. Wait for further improvement and then discontinue clindamycin and transition to oral Keflex and when there is further improvement of the inflammatory changes for plan for discharge on po Keflex, eventually transition to suppressive PCN VK 250 mg twice daily for 6-12 mo. I would not touch the right heel eschar, still hoping that it will eventually be shed spontaneously. The right first toe ulcer is a concern and may or probably has osteomyelitis of the hallux and will image that area. There is evidence of bone destruction there, then would have to consider amputation of the toe. In that imaging study, we will also look at the heel to make sure that there are no destructive changes in the heel area. Toes are present then looking at eventual loss of the foot at the BKA level. BEATRIZ
--- NOTE | 2017-08-08 23:19 | HP ---
DATE OF ADMISSION: 08/07/2017 TIME OF SERVICE: 1445. CHIEF COMPLAINT: Weakness. HISTORY OF PRESENT ILLNESS: Ms. Negron is a 72-year-old white female, known to me from previous admis sions. She comes in feeling weak. Stating she is having increased back pain from her baseline. She does have a history of L1-L5 surgery about 3 years ago. She subsequently has been getting wound care to her right lower extremity for pressure ulcers and DVT . This has been going pretty well. She knows that her leg has been hurting more and had increased s welling and redness. She came to the emergency department for evaluation and was found to have an elevated white count of 17.5 with 25% bands, temperature of 100.4. Blood pressure was borderline low in the 99s over 30s and temperature on arrival was 103.1. She is subsequently being admitted for cellulitis and sepsis. The patient is currently feeling better. No fever or chills at present. No nausea or vomiting. No diarrhea or constipation. No chest pain or difficulty breathing. PAST MEDICAL HISTORY: 1. Vulvar cancer, status post surgery and radiation. 2. Diabetes mellitus type 2. 3. Hypothyroidism. 4. Hyperlipidemia. 5. Hypertension. 6. Obstructive sleep apnea. PAST SURGICAL HISTORY: 1. Left shoulder surgery. 2. Right knee surgery. 3. Coronary artery bypass grafting x4 vessels. 4. Left carotid stent. 5. Permanent pacemaker placement. 6. Vulvar cancer surgery. 7. Back surgery x3. 8. Left foot bunionectomy. 9. Appendectomy. 10. History of tonsillectomy. 11. Left cataract. HOME MEDICATIONS: 1. Aspirin 81 mg daily. 2. Atenolol 75 mg p.o. b.i.d. 3. Lexapro 10 mg daily. 4. Gabapentin 600 mg p.o. q.6 hours. 5. Lantus subcu 20 units b.i.d. 6. Levothyroxine 125 mcg daily. 7. Lisinopril 80 mg daily. 8. Metformin 1000 mg p.o. b.i.d. 9. Edroy 10/325 as needed. 10. Zocor 40 mg p.o. at bedtime. 11. Maxzide 37.5/25 p.o. q.a.m. 12. Vitamin D plus calcium 77/400 p.o. daily. ALLERGIES: COCONUT, CODEINE, PENICILLIN, SULFA, TIZANIDINE, and TORADOL. FAMILY HISTORY: Negative for clotting or bleeding disorder. No immune dysfunction. SOCIAL HISTORY: Negative for habits x3. REVIEW OF SYSTEMS: A 10-point review of systems was performed, negative for all other systems except stated as per HPI. PHYSICAL EXAMINATION: VITAL SIGNS: Temperature current is 100.4, temperature on arrival 103.1, pulse 64, blood pressure 99 /39, respiratory 20, satting 89% on room air. GENERAL: She is awake. She is alert. She is oriented x3. She is a well-developed, well-nourished, obese but chronically appearing white female, appears to be in no acute distress. She has had multi ple family members present. HEENT: Normocephalic, atraumatic. Pupils equal and react to light bilaterally. Mucous membranes ar e moist. No visible lesions. No thrush. NECK: Supple, without lymphadenopathy, JVD, or thyromegaly. LUNGS: Clear. No wheezes, no rales, no rhonchi. CARDIOVASCULAR: She has normal cardiac and regular. Normal S1, S2. She has 2/6 systolic ejection m urmur best heard at the right upper sternal border. ABDOMEN: Obese. It is nontender, nondistended. She has good bowel sounds. EXTREMITIES: No cyanosis or clubbing. She has trace edema to the left lower extremity, right lower extremity, has 1+ edema to the knee level. She has increased erythema and slight heat. She has a dr y eschar present unstageable over the right heel. She has a well granulating wound over her right Ac hilles tendon. There is no drainage and no fluctuance. She has 1+ peripheral pulses in dorsalis ped is. I cannot palpate a posterior tibial. Popliteal is 1+ as well. SKIN: Otherwise warm, moist and well perfused. She has no rashes or lesions. MUSCULOSKELETAL: Otherwise negative. She has no inflamed joints. No palpable effusions. NEUROLOGIC: Cranial nerves II through XII are grossly intact without any focal neurologic deficit. She has 4-5/5 strength in all 4 extremities and normal speech pattern. LABORATORY DATA: Lactic acid of 3.2. RADIOGRAPHIC STUDIES: Chest x-ray showed no acute cardiopulmonary disease. Right lower extremity ul trasound was negative for DVT. ASSESSMENT AND PLAN: 1. Cellulitis of the right lower extremity, it is recurrent. It appears to be streptococcal. We wi ll place on clindamycin and Ancef tonight. 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 Her knee currently appears to be intact. I think this is all just a streptococcal cellulitis from her chronic edema. May need to get Infectious Disease and Orthopedics involved, but she is not complaining of any pain at this point. 2. Sever sepsis syndrome. Patient does have white count with left shift, fever, bacterial infection , and low blood pressure. She responded well to fluids and will continue to hydrate. 3. Diabetes mellitus type 2. We will continue her home medications plus sliding scale insulin. 4. Hypothyroidism, on levothyroxine, which will continue. 5. Hyperlipidemia, on Zocor. 6. Hypertension, on lisinopril 80 mg daily, Maxzide, and atenolol. I have to be very careful with h er renal function which is currently at her baseline. 7. Obstructive sleep apnea on CPAP at 5 or 5.5 cm. We will continue that in the hospital.
[2017-08-09] MEDS: Sodium Chloride 0.9% 1,000 ML IV SCH ×4 (01:46→21:03)
--- NOTE | 2017-08-09 02:11 | CON ---
DATE OF CONSULTATION: 08/08/2017 CHIEF COMPLAINT: Cellulitis of the right hip. HISTORY OF PRESENT ILLNESS: This is a 72-year-old female with a 1 week history of a leg infection. She said that she had this last year that took 6 months to resolve with antibiotics. Over the past w mentasta it recurred. PAST MEDICAL HISTORY: Significant for morbid obesity, diabetes, hypothyroidism, hyperlipidemia, hype rtension, and coronary artery disease. MEDICATIONS: Aspirin, atenolol, , gabapentin, Lantus, levothyroxine, lisinopril, metformin, Nor co, simvastatin, triamterene, vitamin D. PAST SURGICAL HISTORY: Left shoulder surgery, bilateral total knee arthroplasty, CABG x4, carotid st ent, vulvar cancer excision, back surgery x3, left foot bunionectomy, right humerus surgery, total ab dominal hysterectomy, tonsil and adenoidectomy, and I&D of infected right total knee. ALLERGIES: She has allergies to COCONUT, CODEINE, PENICILLIN, PLAVIX, SULFA, and TORADOL. SOCIAL HISTORY: No tobacco or alcohol. FAMILY HISTORY: Diabetes. PHYSICAL EXAMINATION: VITAL SIGNS: Temperature 98.8, pulse 63, blood pressure 183/74, morbidly obese female lying still. She is awake and alert. HEENT: Unremarkable. LUNGS: Clear. HEART: Regular rate and rhythm. ABDOMEN: Soft, obese, nontender. EXTREMITIES: She has about a 15 x 20 cm area of cellulitis on the right lateral thigh and hip. It i s tender to palpation. I do not appreciate any definite fluctuance. There is no drainage. She has very poor pulses in that leg. She has scars from total knee. She has a nonhealing ulcer of the righ t great toe. LABORATORY AND X-RAY FINDINGS: Her white count has gone down from 17 to 10, H&H 11 and 33, platelet count 116. Her PT is 15.9. ASSESSMENT: Cellulitis with history of recurrent cellulitis. PLAN: Ultrasound IV antibiotics. If there is drainable fluid recommend I&D. Please consider vascul ar consult due to the fact that noninvasive vascular testing suggests a proximal obstruction to flow in the arteries of that leg. A recent ultrasound looking for DVT showed some fluid around the superf icial femoral artery of unknown significance.
[2017-08-09 06:03] LABS: Anion Gap 15 mmol/L (10-20); BUN (Urea Nitrogen) 17 mg/dL (9.8-20.1); Calc. Creatinine Clearance 83 mL/min (70-130); Calcium 9.6 mg/dL (7.8-10.44); Carbon Dioxide 23 mmol/L (23-31); Chloride 103 mmol/L (98-107); Estimated GFR-MDRD 58; Glucose 161 mg/dL (83-110); Potassium 4.7 mmol/L (3.5-5.1); Sodium 136 mmol/L (136-145)
[2017-08-09 06:15] LABS: Band 6 % (5-11); Hemoglobin 11.6 g/dL (12.0-16.0); Lymphocytes 11 % (21-51); MDiff Complete? YES; Mean Corpuscular HGB CONC 32.4 g/dL (32.0-36.0); Mean Corpuscular Hemoglobin 29.2 pg (27.0-31.0); Mean Corpuscular Volume 90.2 fl (81.0-99.0); Mean Platelet Volume 9.5 fL (7.4-10.4); Monocytes 7 % (0-10); Neutrophil 76 % (42-75); PLT Morphology Comment Appears Decreased; Platelet Count 114 thou/uL (130-400); RBC Distribution Width 15.1 % (11.5-14.5); Red Blood Cell (RBC) Count 3.98 mill/uL (4.20-5.40); White Blood Cell (WBC) Count 10.3 thou/uL (4.8-10.8)
[2017-08-09] MEDS: Clindamycin/D5W 900 MG in Premix Bag 1 BAG IVPB SCH ×3 (06:17→21:02)
[2017-08-09] MEDS: Atenolol 25 MG TAB PO SCH ×2 (06:17→20:47)
[2017-08-09] MEDS: Gabapentin 300 MG CAP PO SCH ×4 (08:39→20:47)
[2017-08-09] MEDS: TROSPIUM 20 MG TABLET PO SCH ×2 (08:39→20:47)
[2017-08-09] MEDS: Levothyroxine Sodium 125 MCG TAB PO SCH (08:39)
[2017-08-09] MEDS: Escitalopram Oxalate 10 mg Tablet PO SCH (08:39)
[2017-08-09] MEDS: HYDROcodone/Acetaminophen 5/325 mg Tablet PO PRN (08:40)
[2017-08-09] MEDS: Famotidine 20 MG TAB PO SCH ×2 (08:40→20:47)
[2017-08-09] MEDS ORDERED: INSULIN GLARGINE HUM REC ANLOG 100 UNIT SQ SCH (09:00)
[2017-08-09] MEDS: Enoxaparin Sodium 40 MG/0.4 ML SYRINGE SC SCH (13:39)
[2017-08-09] MEDS: Insulin Detemir 100 UNITS/ML 100 UNITS in Pre-Filled Syringe 1 EACH SC SCH (14:10)
[2017-08-09] MEDS: cefTRIAXone\\ROCEPHIN 2 GM in Sodium Chloride 0.9% 100 ML IVPB SCH (17:36)
--- NOTE | 2017-08-09 19:51 | PDOC.PN ---
- Subjective Encounter Start Date: 08/09/17 Encounter Start Time: 19:35 Subjective: f/u for cellulitis R thigh on Clindamycin and Rocephin. No drainable -: abscess noted on sono. Still with pain and edema of R thigh. - Objective Resuscitation Status: Resuscitation Status FULL:Full Resuscitation MAR Reviewed: Yes Vital Signs & Weight: Vital Signs (12 hours) Temp Pulse Resp BP BP Pulse Ox Pulse Ox 08/09/17 08:42 150/77 H 97 08/09/17 08:00 99.3 F 66 22 H 96 08/09/17 07:54 99.3 F 66 22 H 157/74 H 96 Weight Admit Weight 217 lb 3.2 oz Weight 217 lb 3.2 oz I&O: 08/08/17 08/09/17 08/10/17 06:59 06:59 06:59 Intake Total 2625 Balance 2625 Result Diagrams: 08/09/17 05:08 08/09/17 05:08 Additional Labs: Accuchecks 08/09/17 08/09/17 08/09/17 16:55 11:35 06:10 POC Glucose 161 H 135 H 151 H 08/08/17 20:19 POC Glucose 193 H Microbiology 02/03/17 18:36 Venous blood - Left Arm Blood Culture - Final Presumptive Micrococcus sp. 08/07/17 15:50 Urine Straight Catheter Urine Culture - Final Yeast species 08/07/17 12:47 Nasal swab Influenza Types A,B Direct EIA - Final 02/03/17 18:38 Venous blood - Right Hand Blood Culture - Preliminary NO GROWTH AT 48 HOURS 08/08/17 13:11 Foot - Abscess Bacterial Culture - Preliminary Streptococcus agalactiae Gp. B 08/07/17 15:50 Urine Straight Catheter Urine Culture - Preliminary NO GROWTH AT 12 HOURS 08/07/17 13:30 Venous blood - Right Hand Blood Culture - Preliminary Specimen has been received and culture in progress. No Growth to date. 08/07/17 13:30 Venous blood - Right Hand Blood Culture - Preliminary NO GROWTH AT 48 HOURS 08/07/17 13:30 Venous blood - Left Arm Blood Culture - Preliminary Specimen has been received and culture in progress. No Growth to date. 08/07/17 13:30 Venous blood - Left Arm Blood Culture - Preliminary NO GROWTH AT 48 HOURS Laboratory Tests 08/03/1402/06/17 08/07/17 18:11 15:09 13:30 WBC Band Neuts % (Manual) ESR Westergren 68 Creatinine 1.09 Hemoglobin A1c Lactic Acid Magnesium C-Reactive Protein 12.21 H 08/07/17 08/07/17 08/08/17 13:30 18:39 05:56 WBC 17.5 H Band Neuts % (Manual) 25 H ESR Westergren Creatinine Hemoglobin A1c Lactic Acid 2.7 H Magnesium 1.8 C-Reactive Protein 08/08/17 05:56 WBC Band Neuts % (Manual) ESR Westergren Creatinine Hemoglobin A1c 6.0 Lactic Acid Magnesium C-Reactive Protein Radiology Reviewed by me: Yes (R thigh sono - no drainable abscess) Phys Exam - Physical Examination Constitutional: NAD HEENT: PERRLA, oral pharynx no lesions Neck: no JVD, supple Respiratory: no wheezing Cardiovascular: RRR Gastrointestinal: soft, non-tender, no distention, positive bowel sounds + edema and erythema of R thigh R great toe and Achilles region ulcer Musculoskeletal: pulses present Neurological: normal sensation, moves all 4 limbs Psychiatric: A&O x 3 Skin: normal turgor, cap refill <2 seconds Dx/Plan (1) Cellulitis and abscess of right leg Code(s): L03.115 - CELLULITIS OF RIGHT LOWER LIMB; L02.415 - CUTANEOUS ABSCESS OF RIGHT LOWER LIMB Status: Suspected Comment: ? cystic mass of proximal RLE and mass near R superficial femoral artery, consult Vasc surgery for evaluation, continue Clindamycin and Rocephin, pain control (2) Toe ulcer Code(s): L97.509 - NON-PRESSURE CHRONIC ULCER OTH PRT UNSP FOOT W UNSP SEVERITY Status: Chronic Qualifiers: Laterality: right Comment: R great toe with ulceration, local WCT, no ossesous breakdown, see #1 above (3) right ankle ulcer over achilles tendon Status: Chronic Comment: Local WCT (4) Diabetes type 2, controlled Code(s): E11.9 - TYPE 2 DIABETES MELLITUS WITHOUT COMPLICATIONS Status: Chronic Qualifiers: Diabetes mellitus complication status: with unspecified complications Diabetes mellitus snf insulin use: with superintendent container terminal use Qualified Code(s) : E11.8 - Type 2 diabetes mellitus with unspecified complications; Z79.4 - intermediate (current) use of insulin; Z79.4 - terminal computer operator (current) use of insulin; Z79.4 - intermediate (current) use of insulin; Z79.4 - terminal computer operator (current) use of insulin Comment: ISS, ADA (5) Hypothyroidism Code(s): E03.9 - HYPOTHYROIDISM, UNSPECIFIED Status: Chronic Comment: Continue Levothyroxine 125mcg daily (6) Morbid obesity with BMI of 40.0-44.9, adult Code(s): E66.01 - MORBID (SEVERE) OBESITY DUE TO EXCESS CALORIES; Z68.41 - BODY MASS INDEX (BMI) 40.0-44.9, ADULT Status: Chronic (7) PVD (peripheral vascular disease) Code(s): I73.9 - PERIPHERAL VASCULAR DISEASE, UNSPECIFIED Status: Chronic Comment: S/P Right fem-pop bypass 04/13/17 (8) MARIE (acute kidney injury) Code(s): N17.9 - ACUTE KIDNEY FAILURE, UNSPECIFIED Status: Acute Comment: Continue IVF's, avoid nephrotoxic meds and limit contrast exposure - Plan continue antibiotics, PT/OT, manager social, out of bed/ambulate, DVT proph w/ SCDs Stable overall -: Continue Clindamycin and Rocephin -: Pain control as clinically indicated -: WCT for local care -: Continue IVF's * Vascular surgery consult in am
[2017-08-09] MEDS: HYDROcodone/Acetaminophen 10/325 mg Tablet PO PRN (20:48)
[2017-08-10] MEDS: Clindamycin/D5W 900 MG in Premix Bag 1 BAG IVPB SCH ×3 (05:02→23:06)
[2017-08-10] MEDS: Sodium Chloride 0.9% 1,000 ML IV SCH ×3 (07:50→22:53)
[2017-08-10] MEDS: Atenolol 25 MG TAB PO SCH ×2 (09:04→21:06)
[2017-08-10] MEDS: TROSPIUM 20 MG TABLET PO SCH ×2 (09:04→21:06)
[2017-08-10] MEDS: Escitalopram Oxalate 10 mg Tablet PO SCH (09:04)
[2017-08-10] MEDS: Famotidine 20 MG TAB PO SCH ×2 (09:07→21:06)
[2017-08-10] MEDS: Gabapentin 300 MG CAP PO SCH ×4 (09:07→21:06)
[2017-08-10] MEDS: Levothyroxine Sodium 125 MCG TAB PO SCH (09:07)
[2017-08-10] MEDS: Enoxaparin Sodium 40 MG/0.4 ML SYRINGE SC SCH (13:09)
[2017-08-10] MEDS: Insulin Detemir 100 UNITS/ML 20 UNITS in Pre-Filled Syringe 1 EACH SC SCH ×3 (13:10→23:06)
[2017-08-10] MEDS: Insulin Detemir 100 UNITS/ML 100 UNITS in Pre-Filled Syringe 1 EACH SC SCH (13:11)
--- NOTE | 2017-08-10 14:28 | PQF ---
CLINICAL DOCUMENTATION IMPROVEMENT CLARIFICATION FORM: ICD-10 Updated PLEASE DO AN ADDENDUM TO THE PROGRESS NOTE WITH ANY DOCUMENTATION UPDATES OR ADDITIONS AND CARRY THROUGH TO DC SUMMARY. THANK YOU. DATE: 08/10 ATTN: DR. JAMARI CHRISTINE Please exercise your independent, professional judgment in responding to the clarification form. Clinical indicators are provided on the bottom of this form for your review. Please check appropriate box(es): [ x ] Sepsis due to: (Pna, UTI, gangrenous gall bladder, etc.) ___Cellulitis____ [ ] Severe sepsis with acute organ dysfunction of: (Examples: respiratory failure, encephalopathy, acute kidney failure, other) [ ] Localized infection without sepsis [ ] Other diagnosis [ ] Unable to determine For continuity of documentation, please document condition throughout progress notes and discharge summary. Thank You. CLINICAL INDICATORS - SIGNS / SYMPTOMS / LABS ER PRESENTATION 08/07: T: 103.1 WBC: 17.5 CRP: 11.44 LACTIC ACID: 2.7 TREATMENT: 3L NS, IV VANC, CEFEPIME, & CLINDAMYCIN ER PHYSICIAN DIAGNOSES DOCUMENTATION 08/07: RLE CELLULITIS; SEPSIS ATTENDING PHYSICIAN H&P DOCUMENTATION 08/07: HX PRESENT ILLNESS: ...BLOOD PRESSURE WAS BORDERLINE LOW IN THE 99'S OVER 30'S & TEMPERATURE ON ARRIVAL WAS 103.1. SHE IS SUBSEQUENTLY BEING ADMITTED FOR CELLULITIS & SEPSIS. ASSESSMENT & PLAN: 1) CELLULITIS OF RLE; 2) SEVERE SEPSIS SYNDROME. PATIENT DOES HAVE WHITE COUNT WITH LEFT SHIFT, FEVER, BACTERIAL INFECTION & LOW BLOOD PRESSURE RISK FACTORS: RECURRENT RLE CELLULITIS (STREPTOCOCCUS AGALACTIAE GP. B) FEVER MARIE TREATMENTS: IV ANTIBIOTICS (CLINDAMYCIN & ROCEPHIN 08/16 - PRESENT; VANCOMYCIN 08/07) IVF (NS 08/07 - PRESENT) INFECTIOUS DX CONSULT DAILY WOUND CARE THANK YOU! Goldie (This form is maintained as a part of the permanent medical record) 2014 [employer]. All Rights Reserved Goldie Melton RN, BSN [email or web address] Office: [phone] [facility]
[2017-08-10] MEDS: cefTRIAXone\\ROCEPHIN 2 GM in Sodium Chloride 0.9% 100 ML IVPB SCH (18:11)
--- NOTE | 2017-08-10 19:11 | PDOC.PN ---
- Subjective Encounter Start Date: 08/10/17 Encounter Start Time: 18:05 Subjective: f/u for RLE cellulitis on Clindamycin and Rocephin. Feels better overall -: and able to ambulate around bed today. No fever or chills. - Objective Resuscitation Status: Resuscitation Status FULL:Full Resuscitation MAR Reviewed: Yes Vital Signs & Weight: Vital Signs (12 hours) Temp Pulse Pulse Resp BP BP BP 08/10/17 10:33 65 131/55 L 08/10/17 09:04 67 159/92 H 08/10/17 08:00 98.8 F 66 18 08/10/17 07:50 98.8 F 66 18 158/73 H Pulse Ox Pulse Ox Pulse Ox 08/10/17 10:33 93 L 97 08/10/17 09:04 08/10/17 08:00 92 L 08/10/17 07:50 92 L Weight Admit Weight 217 lb 3.2 oz Weight 217 lb 3.2 oz I&O: 08/09/17 08/10/17 08/11/17 06:59 06:59 06:59 Intake Total 2625 1550 1405 Balance 2625 1550 1405 Result Diagrams: 08/09/17 05:08 08/09/17 05:08 Additional Labs: Accuchecks 08/10/17 08/10/17 08/10/17 16:02 14:35 09:24 POC Glucose 163 H 155 H 152 H 08/10/17 08/09/17 04:46 20:47 POC Glucose 88 185 H Phys Exam - Physical Examination Constitutional: NAD HEENT: PERRLA, oral pharynx no lesions Neck: no JVD, supple Respiratory: no wheezing Cardiovascular: RRR Gastrointestinal: soft, non-tender, no distention, positive bowel sounds R buttock and thigh edema, erythema Musculoskeletal: pulses present, edema present Neurological: normal sensation, moves all 4 limbs Psychiatric: A&O x 3 Skin: normal turgor, cap refill <2 seconds Dx/Plan (1) Cellulitis and abscess of right leg Code(s): L03.115 - CELLULITIS OF RIGHT LOWER LIMB; L02.415 - CUTANEOUS ABSCESS OF RIGHT LOWER LIMB Status: Suspected Comment: ? cystic mass of proximal RLE and mass near R superficial femoral artery, consult Vasc surgery for evaluation, continue Clindamycin and Rocephin, pain control (2) Toe ulcer Code(s): L97.509 - NON-PRESSURE CHRONIC ULCER OTH PRT UNSP FOOT W UNSP SEVERITY Status: Chronic Qualifiers: Laterality: right Comment: R great toe with ulceration, local WCT, no ossesous breakdown, see #1 above (3) right ankle ulcer over achilles tendon Status: Chronic Comment: Local WCT (4) Diabetes type 2, controlled Code(s): E11.9 - TYPE 2 DIABETES MELLITUS WITHOUT COMPLICATIONS Status: Chronic Qualifiers: Diabetes mellitus complication status: with unspecified complications Diabetes mellitus long-term insulin use: with intermediate accountant use Qualified Code(s) : E11.8 - Type 2 diabetes mellitus with unspecified complications; Z79.4 - exterminator helper (current) use of insulin; Z79.4 - care home (current) use of insulin; Z79.4 - care home (current) use of insulin; Z79.4 - care home (current) use of insulin Comment: ISS, ADA (5) Hypothyroidism Code(s): E03.9 - HYPOTHYROIDISM, UNSPECIFIED Status: Chronic Comment: Continue Levothyroxine 125mcg daily (6) Morbid obesity with BMI of 40.0-44.9, adult Code(s): E66.01 - MORBID (SEVERE) OBESITY DUE TO EXCESS CALORIES; Z68.41 - BODY MASS INDEX (BMI) 40.0-44.9, ADULT Status: Chronic (7) PVD (peripheral vascular disease) Code(s): I73.9 - PERIPHERAL VASCULAR DISEASE, UNSPECIFIED Status: Chronic Comment: S/P Right fem-pop bypass 04/13/17 (8) MARIE (acute kidney injury) Code(s): N17.9 - ACUTE KIDNEY FAILURE, UNSPECIFIED Status: Acute Comment: Continue IVF's, avoid nephrotoxic meds and limit contrast exposure - Plan continue antibiotics, PT/OT, social work job titles, out of bed/ambulate Stable overall -: Continue Clindamycin and Rocephin -: WCT for local care -: Change Levemir 20u sc BID -: Sennokot-S BID * Magnesium Citrate x 1 bottle
[2017-08-10] MEDS: Senokot S 8.6-50 MG TAB PO SCH (21:06)
[2017-08-10] MEDS: Magnesium Citrate 300 ML BOT PO SCH ×2 (21:07→21:44)
[2017-08-10] MEDS ORDERED: cloNIDine 0.1 MG TAB PO SCH (21:30)
[2017-08-10] MEDS: HYDROcodone/Acetaminophen 5/325 mg Tablet PO PRN (21:47)
[2017-08-11] MEDS: Clindamycin/D5W 900 MG in Premix Bag 1 BAG IVPB SCH ×3 (05:57→23:48)
--- NOTE | 2017-08-11 07:57 | CON ---
DATE OF CONSULTATION: 08/10/2017 HISTORY OF PRESENT ILLNESS: Ms. Negron underwent a right leg iliofemoral endarterectomy with patch an gioplasty, utilizing a bovine pericardium as the patch. This was for a nonhealing wound of her right lower extremity. Since that time, her wound is healed. She has had no issues with her groin. She recently underwent an ultrasound to evaluate right buttock and hip cellulitis. On the ultrasound, th ey noted no soft tissue fluid collections in her hip or buttock/thigh area. She also has undergone v enous Doppler. On this ultrasound, they noted a complex multiloculated cystic structure multivitamin s awaited cystic structure in the superficial subcutaneous soft tissues of the right mid thigh. No i ssues with her right groin on the ultrasound. The wound in her groin has healed. There are no palpa ble masses. She has a palpable pulse in her femoral artery. I see no correlation between her right groin incision in the area of cystic loculation in her mid thigh and nothing to suggest this is a vas cular issue with no flow within the cystic structure.
[2017-08-11] MEDS: Atenolol 25 MG TAB PO SCH ×2 (08:51→21:08)
[2017-08-11] MEDS: Gabapentin 300 MG CAP PO SCH ×4 (08:51→21:09)
[2017-08-11] MEDS: TROSPIUM 20 MG TABLET PO SCH ×2 (08:51→21:08)
[2017-08-11] MEDS: Escitalopram Oxalate 10 mg Tablet PO SCH (08:51)
[2017-08-11] MEDS: Famotidine 20 MG TAB PO SCH ×2 (08:52→21:09)
[2017-08-11] MEDS: Insulin Detemir 100 UNITS/ML 20 UNITS in Pre-Filled Syringe 1 EACH SC SCH ×2 (08:52→21:10)
[2017-08-11] MEDS: Levothyroxine Sodium 125 MCG TAB PO SCH (08:52)
[2017-08-11] MEDS: Senokot S 8.6-50 MG TAB PO SCH ×2 (08:52→21:39)
[2017-08-11] MEDS: Enoxaparin Sodium 40 MG/0.4 ML SYRINGE SC SCH (08:56)
[2017-08-11] MEDS: HYDROcodone/Acetaminophen 5/325 mg Tablet PO PRN ×2 (08:59→23:21)
[2017-08-11] MEDS: Sodium Chloride 0.9% 1,000 ML IV SCH (13:28)
[2017-08-11] MEDS: cefTRIAXone\\ROCEPHIN 2 GM in Sodium Chloride 0.9% 100 ML IVPB SCH (17:53)
[2017-08-11] MEDS: Magnesium Citrate 300 ML BOT PO SCH (17:59)
--- NOTE | 2017-08-11 20:29 | PDOC.PN ---
- Subjective Encounter Start Date: 08/11/17 Encounter Start Time: 10:30 Subjective: f/u for RLE cellulitis on Clindamycin and Rocephin. Feeling much better -: overall and ambulating short distances with less pain. No fever or chills. - Objective Resuscitation Status: Resuscitation Status FULL:Full Resuscitation MAR Reviewed: Yes Vital Signs & Weight: Vital Signs (12 hours) Temp Pulse Resp BP BP Pulse Ox 08/11/17 18:00 98.3 F 61 18 167/71 H 96 08/11/17 11:00 97.9 F 60 18 123/71 95 08/11/17 08:51 60 145/70 H Weight Admit Weight 217 lb 3.2 oz Weight 217 lb 3.2 oz I&O: 08/10/17 08/11/17 08/12/17 06:59 06:59 06:59 Intake Total 1550 1405 1989 Balance 1550 1405 1989 Result Diagrams: 08/09/17 05:08 08/09/17 05:08 Additional Labs: Accuchecks 08/11/17 08/11/17 08/11/17 16:57 11:18 04:14 POC Glucose 110 194 H 109 Phys Exam - Physical Examination Constitutional: NAD HEENT: PERRLA, oral pharynx no lesions Neck: no JVD, supple Respiratory: no wheezing, clear to auscultation bilateral Cardiovascular: RRR Gastrointestinal: soft, non-tender, no distention, positive bowel sounds R buttock and proximal thigh with decreased erythema and TTP + edema Musculoskeletal: pulses present Neurological: normal sensation, moves all 4 limbs Psychiatric: A&O x 3 Skin: normal turgor, cap refill <2 seconds Dx/Plan (1) Cellulitis and abscess of right leg Code(s): L03.115 - CELLULITIS OF RIGHT LOWER LIMB; L02.415 - CUTANEOUS ABSCESS OF RIGHT LOWER LIMB Status: Suspected Comment: ? cystic mass of proximal RLE and mass near R superficial femoral artery, consult Vasc surgery for evaluation, continue Clindamycin and Rocephin, pain control (2) Toe ulcer Code(s): L97.509 - NON-PRESSURE CHRONIC ULCER OTH PRT UNSP FOOT W UNSP SEVERITY Status: Chronic Qualifiers: Laterality: right Comment: R great toe with ulceration, local WCT, no ossesous breakdown, see #1 above (3) right ankle ulcer over achilles tendon Status: Chronic Comment: Local WCT (4) Diabetes type 2, controlled Code(s): E11.9 - TYPE 2 DIABETES MELLITUS WITHOUT COMPLICATIONS Status: Chronic Qualifiers: Diabetes mellitus complication status: with unspecified complications Diabetes mellitus chcf insulin use: with intermediate school teacher use Qualified Code(s) : E11.8 - Type 2 diabetes mellitus with unspecified complications; Z79.4 - halfway (current) use of insulin; Z79.4 - halfway (current) use of insulin; Z79.4 - halfway (current) use of insulin; Z79.4 - terminal system operator (current) use of insulin Comment: ISS, ADA (5) Hypothyroidism Code(s): E03.9 - HYPOTHYROIDISM, UNSPECIFIED Status: Chronic Comment: Continue Levothyroxine 125mcg daily (6) Morbid obesity with BMI of 40.0-44.9, adult Code(s): E66.01 - MORBID (SEVERE) OBESITY DUE TO EXCESS CALORIES; Z68.41 - BODY MASS INDEX (BMI) 40.0-44.9, ADULT Status: Chronic (7) PVD (peripheral vascular disease) Code(s): I73.9 - PERIPHERAL VASCULAR DISEASE, UNSPECIFIED Status: Chronic Comment: S/P Right fem-pop bypass 04/13/17 (8) MARIE (acute kidney injury) Code(s): N17.9 - ACUTE KIDNEY FAILURE, UNSPECIFIED Status: Acute Comment: Continue IVF's, avoid nephrotoxic meds and limit contrast exposure, resolving (9) Sepsis Code(s): A41.9 - SEPSIS, UNSPECIFIED ORGANISM Status: Acute Comment: Secondary to RLE cellulitis, resolved - Plan continue antibiotics, PT/OT, geriatric social worker, respiratory therapy, out of bed/ ambulate Stable overall -: OOB/ambulate -: Continue Rocephin and Clindamycin -: Continue bowel regimen with Colace and MagCitrate -: Continue Levemir 20u sc BID * Likely home in 48h
[2017-08-11] MEDS: cloNIDine 0.3 MG TAB PO SCH (21:09)
[2017-08-12] MEDS: Sodium Chloride 0.9% 1,000 ML IV SCH ×3 (00:26→21:00)
[2017-08-12] MEDS: Clindamycin/D5W 900 MG in Premix Bag 1 BAG IVPB SCH ×3 (05:32→21:03)
[2017-08-12] MEDS: Escitalopram Oxalate 10 mg Tablet PO SCH (08:25)
[2017-08-12] MEDS: Gabapentin 300 MG CAP PO SCH ×4 (08:25→20:42)
[2017-08-12] MEDS: Atenolol 25 MG TAB PO SCH ×2 (08:26→20:40)
[2017-08-12] MEDS: Famotidine 20 MG TAB PO SCH ×2 (08:26→20:42)
[2017-08-12] MEDS: Senokot S 8.6-50 MG TAB PO SCH ×2 (08:27→20:42)
[2017-08-12] MEDS: Enoxaparin Sodium 40 MG/0.4 ML SYRINGE SC SCH (08:27)
[2017-08-12] MEDS: Levothyroxine Sodium 125 MCG TAB PO SCH (08:27)
[2017-08-12] MEDS: TROSPIUM 20 MG TABLET PO SCH ×2 (08:27→20:41)
[2017-08-12] MEDS: cloNIDine 0.3 MG TAB PO SCH ×2 (08:30→20:41)
[2017-08-12] MEDS: Insulin Detemir 100 UNITS/ML 20 UNITS in Pre-Filled Syringe 1 EACH SC SCH ×2 (08:34→20:43)
[2017-08-12] MEDS: HYDROcodone/Acetaminophen 5/325 mg Tablet PO PRN ×2 (10:30→20:51)
--- NOTE | 2017-08-12 17:09 | PDOC.PN ---
- Subjective Encounter Start Date: 08/12/17 Encounter Start Time: 17:00 Subjective: f/u for RLE cellulitis on Rocephin and Clindamycin. Overall doing much -: better with less pain and edema. No fever. Ambulated and showered -: today. - Objective Resuscitation Status: Resuscitation Status FULL:Full Resuscitation MAR Reviewed: Yes Vital Signs & Weight: Vital Signs (12 hours) Temp Pulse Resp BP BP Pulse Ox 08/12/17 11:00 97.8 F 59 L 12 155/75 H 96 08/12/17 08:30 181/79 H 08/12/17 08:26 60 181/79 H 08/12/17 08:00 97.5 F L 60 20 181/79 H 95 Weight Admit Weight 217 lb 3.2 oz Weight 217 lb 3.2 oz I&O: 08/11/17 08/12/17 08/13/17 06:59 06:59 06:59 Intake Total 1405 3690 480 Balance 1405 3690 480 Result Diagrams: 08/09/17 05:08 08/09/17 05:08 Additional Labs: Accuchecks 08/12/17 08/12/17 08/11/17 11:29 05:24 20:10 POC Glucose 132 H 110 178 H 08/11/17 16:57 POC Glucose 110 Phys Exam - Physical Examination Constitutional: NAD HEENT: PERRLA, oral pharynx no lesions Neck: no JVD, supple Respiratory: no wheezing, clear to auscultation bilateral Cardiovascular: RRR Gastrointestinal: soft, non-tender, no distention, positive bowel sounds RLE with decreased erythema and edema Musculoskeletal: pulses present Neurological: normal sensation, moves all 4 limbs Psychiatric: A&O x 3 Skin: normal turgor, cap refill <2 seconds Dx/Plan (1) Cellulitis and abscess of right leg Code(s): L03.115 - CELLULITIS OF RIGHT LOWER LIMB; L02.415 - CUTANEOUS ABSCESS OF RIGHT LOWER LIMB Status: Suspected Comment: cystic mass of proximal RLE and mass near R superficial femoral artery, no intervention recommended per [facility] Surgery, continue Clindamycin and Rocephin another 24h then convert to po abx 08/14/17 (2) Toe ulcer Code(s): L97.509 - NON-PRESSURE CHRONIC ULCER OTH PRT UNSP FOOT W UNSP SEVERITY Status: Chronic Qualifiers: Laterality: right Comment: R great toe with ulceration, local WCT, no ossesous breakdown, see #1 above (3) right ankle ulcer over achilles tendon Status: Chronic Comment: Local WCT (4) Diabetes type 2, controlled Code(s): E11.9 - TYPE 2 DIABETES MELLITUS WITHOUT COMPLICATIONS Status: Chronic Qualifiers: Diabetes mellitus complication status: with unspecified complications Diabetes mellitus residential insulin use: with residential use Qualified Code(s) : E11.8 - Type 2 diabetes mellitus with unspecified complications; Z79.4 - buttermaker continuous churn (current) use of insulin; Z79.4 - long-term (current) use of insulin; Z79.4 - long-term (current) use of insulin; Z79.4 - buttermaker continuous churn (current) use of insulin Comment: ISS, ADA (5) Hypothyroidism Code(s): E03.9 - HYPOTHYROIDISM, UNSPECIFIED Status: Chronic Comment: Continue Levothyroxine 125mcg daily (6) Morbid obesity with BMI of 40.0-44.9, adult Code(s): E66.01 - MORBID (SEVERE) OBESITY DUE TO EXCESS CALORIES; Z68.41 - BODY MASS INDEX (BMI) 40.0-44.9, ADULT Status: Chronic (7) PVD (peripheral vascular disease) Code(s): I73.9 - PERIPHERAL VASCULAR DISEASE, UNSPECIFIED Status: Chronic Comment: S/P Right fem-pop bypass 04/13/17 (8) MARIE (acute kidney injury) Code(s): N17.9 - ACUTE KIDNEY FAILURE, UNSPECIFIED Status: Acute Comment: Saline lock IVF, avoid nephrotoxic meds and limit contrast exposure, resolving (9) Sepsis Code(s): A41.9 - SEPSIS, UNSPECIFIED ORGANISM Status: Acute Comment: Secondary to RLE cellulitis, resolved - Plan continue antibiotics, PT/OT, out of bed/ambulate Stable currently -: Continue Rocephin/Clindamycin, likely transition to po abx in 48h -: OOB/ambulate -: Local WCT for R great toe/achilles wound -: Likely d/c home with HH in 48h * .
[2017-08-12] MEDS: cefTRIAXone\\ROCEPHIN 2 GM in Sodium Chloride 0.9% 100 ML IVPB SCH (18:33)
[2017-08-12] MEDS ORDERED: Clindamycin/D5W 900 mg/50 ml Premix Bag ONE (21:03)
[2017-08-13] MEDS: Sodium Chloride 0.9% 1,000 ML IV SCH ×2 (06:29→12:25)
[2017-08-13] MEDS: Clindamycin/D5W 900 MG in Premix Bag 1 BAG IVPB SCH ×3 (06:29→21:09)
[2017-08-13] MEDS: Atenolol 25 MG TAB PO SCH ×2 (08:14→21:09)
[2017-08-13] MEDS: Escitalopram Oxalate 10 mg Tablet PO SCH (08:14)
[2017-08-13] MEDS: Famotidine 20 MG TAB PO SCH ×2 (08:14→21:08)
[2017-08-13] MEDS: Senokot S 8.6-50 MG TAB PO SCH ×2 (08:14→21:08)
[2017-08-13] MEDS: Gabapentin 300 MG CAP PO SCH ×4 (08:14→21:08)
[2017-08-13] MEDS: TROSPIUM 20 MG TABLET PO SCH ×2 (08:14→21:08)
[2017-08-13] MEDS: Levothyroxine Sodium 125 MCG TAB PO SCH (08:14)
[2017-08-13] MEDS: cloNIDine 0.3 MG TAB PO SCH ×2 (08:15→21:08)
[2017-08-13] MEDS: Enoxaparin Sodium 40 MG/0.4 ML SYRINGE SC SCH (08:16)
[2017-08-13] MEDS: Insulin Detemir 100 UNITS/ML 20 UNITS in Pre-Filled Syringe 1 EACH SC SCH ×2 (08:16→21:10)
[2017-08-13] MEDS: HYDROcodone/Acetaminophen 10/325 mg Tablet PO PRN ×2 (08:41→21:18)
--- NOTE | 2017-08-13 14:01 | PDOC.PN ---
- Subjective Encounter Start Date: 08/13/17 Encounter Start Time: 13:15 Subjective: f/u RLE cellulitis on Clindamycin and Rocephin. Feeling better overall -: and ambulating better. No fever or chills. - Objective Resuscitation Status: Resuscitation Status FULL:Full Resuscitation MAR Reviewed: Yes Vital Signs & Weight: Vital Signs (12 hours) Temp Pulse Resp BP BP Pulse Ox 08/13/17 11:18 98.2 F 60 18 198/67 H 94 L 08/13/17 08:15 182/75 H 08/13/17 08:14 60 182/75 H 08/13/17 08:00 97.6 F 60 16 08/13/17 07:47 97.6 F 59 L 20 182/75 H 95 08/13/17 04:48 96 08/13/17 04:00 97.6 F 59 L 24 H 177/71 H 94 L Weight Admit Weight 217 lb 3.2 oz Weight 217 lb 3.2 oz I&O: 08/12/17 08/13/17 08/14/17 06:59 06:59 06:59 Intake Total 3690 1550 Output Total 1200 Balance 3690 350 Result Diagrams: 08/09/17 05:08 08/09/17 05:08 Additional Labs: Accuchecks 08/13/17 08/12/17 08/12/17 11:10 20:04 16:02 POC Glucose 137 H 144 H 141 H Phys Exam - Physical Examination Constitutional: NAD HEENT: PERRLA, oral pharynx no lesions Neck: no JVD, supple Respiratory: no wheezing, clear to auscultation bilateral Cardiovascular: RRR Gastrointestinal: soft, non-tender, no distention, positive bowel sounds RLE with minimal pink area of buttock and proximal thigh mild edema but improved Musculoskeletal: pulses present Neurological: normal sensation, moves all 4 limbs Psychiatric: A&O x 3 Skin: normal turgor, cap refill <2 seconds Dx/Plan (1) Cellulitis and abscess of right leg Code(s): L03.115 - CELLULITIS OF RIGHT LOWER LIMB; L02.415 - CUTANEOUS ABSCESS OF RIGHT LOWER LIMB Status: Suspected Comment: cystic mass of proximal RLE and mass near R superficial femoral artery, no intervention recommended per Vasc Surgery, continue Clindamycin and Rocephin another 24h then convert to po abx 2/17/18 (2) Toe ulcer Code(s): L97.509 - NON-PRESSURE CHRONIC ULCER OTH PRT UNSP FOOT W UNSP SEVERITY Status: Chronic Qualifiers: Laterality: right Comment: R great toe with ulceration, local WCT, no ossesous breakdown, see #1 above (3) right ankle ulcer over achilles tendon Status: Chronic Comment: Local WCT (4) Diabetes type 2, controlled Code(s): E11.9 - TYPE 2 DIABETES MELLITUS WITHOUT COMPLICATIONS Status: Chronic Qualifiers: Diabetes mellitus complication status: with unspecified complications Diabetes mellitus care home insulin use: with care home use Qualified Code(s) : E11.8 - Type 2 diabetes mellitus with unspecified complications; Z79.4 - snf (current) use of insulin; Z79.4 - medical terminologist (current) use of insulin; Z79.4 - snf (current) use of insulin; Z79.4 - medical terminologist (current) use of insulin Comment: ISS, ADA (5) Hypothyroidism Code(s): E03.9 - HYPOTHYROIDISM, UNSPECIFIED Status: Chronic Comment: Continue Levothyroxine 125mcg daily (6) Morbid obesity with BMI of 40.0-44.9, adult Code(s): E66.01 - MORBID (SEVERE) OBESITY DUE TO EXCESS CALORIES; Z68.41 - BODY MASS INDEX (BMI) 40.0-44.9, ADULT Status: Chronic (7) PVD (peripheral vascular disease) Code(s): I73.9 - PERIPHERAL VASCULAR DISEASE, UNSPECIFIED Status: Chronic Comment: S/P Right fem-pop bypass 04/13/17 (8) MARIE (acute kidney injury) Code(s): N17.9 - ACUTE KIDNEY FAILURE, UNSPECIFIED Status: Acute Comment: Saline lock IVF, avoid nephrotoxic meds and limit contrast exposure, resolving (9) Sepsis Code(s): A41.9 - SEPSIS, UNSPECIFIED ORGANISM Status: Acute Comment: Secondary to RLE cellulitis, resolved - Plan continue antibiotics, PT/OT, social media specialist, out of bed/ambulate Stable overall -: Continue Clindamycin and Rocephin, convert to po abx 08/14/17 -: OOB/ambulate -: WCT for local care of R great toe/achilles ulcers -: D/C home in am 08/14/17 * .
[2017-08-13] MEDS: cefTRIAXone\\ROCEPHIN 2 GM in Sodium Chloride 0.9% 100 ML IVPB SCH (17:32)
[2017-08-14] MEDS: Clindamycin/D5W 900 MG in Premix Bag 1 BAG IVPB SCH (05:35)
[2017-08-14] MEDS: HYDROcodone/Acetaminophen 5/325 mg Tablet PO PRN (08:37)
[2017-08-14] MEDS: Gabapentin 300 MG CAP PO SCH ×4 (08:38→20:22)
[2017-08-14] MEDS: Famotidine 20 MG TAB PO SCH ×2 (08:39→20:21)
[2017-08-14] MEDS: Atenolol 25 MG TAB PO SCH ×2 (08:39→20:20)
[2017-08-14] MEDS: TROSPIUM 20 MG TABLET PO SCH ×2 (08:41→20:21)
[2017-08-14] MEDS: Levothyroxine Sodium 125 MCG TAB PO SCH (08:41)
[2017-08-14] MEDS: Escitalopram Oxalate 10 mg Tablet PO SCH (08:41)
[2017-08-14] MEDS: Senokot S 8.6-50 MG TAB PO SCH ×2 (08:41→20:22)
[2017-08-14] MEDS: cloNIDine 0.3 MG TAB PO SCH (08:46)
[2017-08-14] MEDS: Cephalexin 250 MG CAP PO SCH ×4 (08:48→20:22)
[2017-08-14] MEDS: Insulin Detemir 100 UNITS/ML 20 UNITS in Pre-Filled Syringe 1 EACH SC SCH ×2 (08:54→20:22)
[2017-08-14] MEDS ORDERED: Cephalexin 250 MG/5 ML Oral Suspension PO SCH (09:00)
[2017-08-14] MEDS ORDERED: Clindamycin 150 MG CAP PO SCH (10:00)
[2017-08-14 10:29] LABS: #Eosinphils 0.3 thou/uL (0.0-0.7); #Lymphocytes 1.3 thou/uL (1.20-3.40); #Monocytes 0.6 thou/uL (0.11-0.59); #Neutrophils 6.1 thou/uL (1.40-6.50); %Basophils 0.6 % (0.0-1.0); %Eosinophils 3.2 % (0.0-10.0); %Lymphocytes 15.9 % (21.0-51.0); %Monocytes 7.5 % (0.0-10.0); %Neutrophils 72.9 % (42.0-75.0); Hemoglobin 11.1 g/dL (12.0-16.0); Mean Corpuscular HGB CONC 33.2 g/dL (32.0-36.0); Mean Corpuscular Hemoglobin 29.7 pg (27.0-31.0); Mean Corpuscular Volume 89.5 fl (81.0-99.0); Mean Platelet Volume 7.8 fL (7.4-10.4); Platelet Count 217 thou/uL (130-400); RBC Distribution Width 15.3 % (11.5-14.5); Red Blood Cell (RBC) Count 3.74 mill/uL (4.20-5.40); White Blood Cell (WBC) Count 8.3 thou/uL (4.8-10.8)
[2017-08-14 10:41] LABS: Anion Gap 15 mmol/L (10-20); BUN (Urea Nitrogen) 9 mg/dL (9.8-20.1); Calc. Creatinine Clearance 93 mL/min (70-130); Calcium 9.6 mg/dL (7.8-10.44); Carbon Dioxide 23 mmol/L (23-31); Chloride 104 mmol/L (98-107); Estimated GFR-MDRD 66; Glucose 121 mg/dL (83-110); Potassium 4.6 mmol/L (3.5-5.1); Sodium 137 mmol/L (136-145)
--- NOTE | 2017-08-14 11:58 | PDOC.PN ---
- Subjective Encounter Start Date: 08/14/17 Encounter Start Time: 08:20 Pt seen for followup re; cellulitis. Feels better. No chest pain, shortness of breath, fevers or diarrhea. - Objective Resuscitation Status: Resuscitation Status FULL:Full Resuscitation MAR Reviewed: Yes Vital Signs & Weight: Vital Signs (12 hours) Temp Pulse Resp BP BP Pulse Ox 08/14/17 11:21 98.4 F 60 16 188/74 H 94 L 08/14/17 08:39 65 160/70 H 08/14/17 07:43 98.4 F 65 16 186/76 H 94 L Weight Admit Weight 217 lb 3.2 oz Weight 217 lb 3.2 oz I&O: 08/13/17 08/14/17 08/15/17 06:59 06:59 06:59 Intake Total 1550 480 Output Total 1200 Balance 350 480 Result Diagrams: 08/14/17 10:18 08/14/17 10:18 Additional Labs: Accuchecks 08/14/17 08/13/17 08/13/17 05:56 20:41 16:53 POC Glucose 101 105 105 Phys Exam - Physical Examination Obese HEENT: moist MMs Neck: supple Respiratory: clear to auscultation bilateral Cardiovascular: RRR Gastrointestinal: soft Neurological: moves all 4 limbs Psychiatric: normal affect Deviation from normal: RLE rash Dx/Plan (1) Cellulitis of right leg Code(s): L03.115 - CELLULITIS OF RIGHT LOWER LIMB Status: Acute (2) Atrial fibrillation Code(s): I48.91 - UNSPECIFIED ATRIAL FIBRILLATION Status: Chronic (3) CAD (coronary artery disease) Code(s): I25.10 - ATHSCL HEART DISEASE OF [place] CORONARY ARTERY W/O ANG PCTRS Status: Chronic Qualifiers: Coronary Disease-Associated Artery/Lesion type: bypass graft [place] vs. transplanted heart: [place] heart Associated angina: without angina Qualified Code(s): I25.810 - Atherosclerosis of coronary artery bypass graft(s) without angina pectoris (4) Diabetes type 2, controlled Code(s): E11.9 - TYPE 2 DIABETES MELLITUS WITHOUT COMPLICATIONS Status: Chronic Qualifiers: Diabetes mellitus complication status: with unspecified complications Diabetes mellitus custodial insulin use: with custodial use Qualified Code(s) : E11.8 - Type 2 diabetes mellitus with unspecified complications; Z79.4 - FDC (current) use of insulin; Z79.4 - middle or intermediate school principal (current) use of insulin; Z79.4 - middle or intermediate school principal (current) use of insulin; Z79.4 - FDC (current) use of insulin (5) Dyslipidemia Code(s): E78.5 - HYPERLIPIDEMIA, UNSPECIFIED Status: Chronic (6) Hypothyroidism Code(s): E03.9 - HYPOTHYROIDISM, UNSPECIFIED Status: Chronic (7) Labile hypertension Code(s): I10 - ESSENTIAL (PRIMARY) HYPERTENSION Status: Chronic (8) PVD (peripheral vascular disease) Code(s): I73.9 - PERIPHERAL VASCULAR DISEASE, UNSPECIFIED Status: Chronic - Plan continue antibiotics, out of bed/ambulate * . Clinically improving. Switch to oral antibiotics and observe. Pt will need long-term suppressive therapy per ID service. continue accuchecks, insulin sliding scale. Follow labs. Review of Systems - Review of Systems Respiratory: negative: Cough, Dry, Shortness of Breath, Hemoptysis, SOB with Excertion, Pleuritic Pain, Sputum, Wheezing Cardiovascular: negative: chest pain, palpitations, orthopnea, paroxysmal nocturnal dyspnea, edema, light headedness Skin: Rash. negative: Lesions, James, Bruising - Medications/Allergies Allergies/Adverse Reactions: Allergies Allergy/AdvReac Type Severity Reaction Status Date / Time clopidogrel bisulfate Allergy Verified 08/07/17 20:20 [From Plavix] coconut oil Allergy Verified 08/07/17 20:20 codeine Allergy Verified 08/07/17 20:20 ketorolac tromethamine Allergy Verified 08/07/17 20:20 [From Toradol] Latex, Natural Rubber Allergy Verified 08/12/17 04:13 Penicillins Allergy Verified 08/07/17 20:20 Sulfa (Sulfonamide Allergy Verified 08/07/17 20:20 Antibiotics) tizanidine Allergy Verified 08/07/17 20:20 COCONUT Allergy Uncoded 08/23/14 08:58 Medications: Current Medications Acetaminophen (Tylenol) 650 mg PO Q4H PRN PRN Reason: Headache/Fever or Pain Last Admin: 08/08/17 11:54 Dose: 650 mg Hydrocodone Bitart/Acetaminophen ([place] 10/325) 1 tab PO Q4H PRN PRN Reason: Severe Pain (7-10) Last Admin: 08/13/17 21:18 Dose: 1 tab Hydrocodone Bitart/Acetaminophen ([place] 5/325) 1 tab PO Q4H PRN PRN Reason: Moderate Pain (4-6) Last Admin: 08/14/17 08:37 Dose: 1 tab Atenolol (Tenormin) 75 mg PO BID [facility] Last Admin: 08/14/17 08:39 Dose: 75 mg Cephalexin (Keflex) 500 mg PO QID [facility] Last Admin: 08/14/17 08:48 Dose: 500 mg Clonidine (Catapres) 0.3 mg PO BID [facility] Last Admin: 08/14/17 08:46 Dose: 0.3 mg Dextrose/Water (Dextrose 50%) 25 gm SLOW IVP PRN PRN PRN Reason: Hypoglycemia Enoxaparin Sodium (Lovenox) 40 mg SC 0900 [facility] Last Admin: 08/13/17 08:16 Dose: Not Given Escitalopram Oxalate (Lexapro) 10 mg PO DAILY [facility] Last Admin: 08/14/17 08:41 Dose: 10 mg Famotidine (Pepcid) 20 mg PO BID [facility] Last Admin: 08/14/17 08:39 Dose: 20 mg Gabapentin (Neurontin) 600 mg PO QID [facility] Last Admin: 08/14/17 08:38 Dose: 600 mg Glucagon (Glucagon) 1 mg IM PRN PRN PRN Reason: Hypoglycemia Dextrose/Water (D5w) 1,000 mls @ 0 mls/hr IV .Q0M PRN; As Directed PRN Reason: Hypoglycemia Insulin Detemir 20 units/ (Miscellaneous Medication) 0.2 mls @ 0 mls/hr SC QAM [facility] Last Admin: 08/14/17 08:54 Dose: 0.2 mls Insulin Detemir 20 units/ (Miscellaneous Medication) 0.2 mls @ 0 mls/hr SC HS [facility] Last Admin: 08/13/17 21:10 Dose: 0.2 mls Insulin Human Lispro (Humalog) 0 units SC .MODERATE SLIDING SC PRN PRN Reason: Moderate Correctional Scale Last Admin: 08/08/17 12:36 Dose: 4 unit Levothyroxine Sodium (Synthroid) 125 mcg PO DAILY [facility] Last Admin: 08/14/17 08:41 Dose: 125 mcg Ondansetron HCl (Zofran Odt) 4 mg PO Q6H PRN PRN Reason: Nausea/Vomiting Last Admin: 08/08/17 17:54 Dose: 4 mg Senna/Docusate Sodium (Senokot S) 1 tab PO BID [facility] Last Admin: 08/14/17 08:41 Dose: 1 tab Trospium (Trospium) 20 mg PO BID [facility] Last Admin: 08/14/17 08:41 Dose: 20 mg
[2017-08-14] MEDS: Enoxaparin Sodium 40 MG/0.4 ML SYRINGE SC SCH (13:13)
[2017-08-14] MEDS ORDERED: hydrALAZINE 20 MG/ML VIAL SLOW IVP PRN (18:18)
[2017-08-14] MEDS ORDERED: cloNIDine 0.3 MG TAB PO SCH (18:45)
[2017-08-15 05:29] LABS: #Eosinphils 0.3 thou/uL (0.0-0.7); #Lymphocytes 1.3 thou/uL (1.20-3.40); #Monocytes 0.6 thou/uL (0.11-0.59); #Neutrophils 5.2 thou/uL (1.40-6.50); %Basophils 0.4 % (0.0-1.0); %Eosinophils 3.6 % (0.0-10.0); %Lymphocytes 17.5 % (21.0-51.0); %Monocytes 7.5 % (0.0-10.0); Hemoglobin 10.7 g/dL (12.0-16.0); Mean Corpuscular HGB CONC 33.6 g/dL (32.0-36.0); Mean Corpuscular Hemoglobin 29.8 pg (27.0-31.0); Mean Corpuscular Volume 88.6 fl (81.0-99.0); Mean Platelet Volume 7.6 fL (7.4-10.4); Platelet Count 213 thou/uL (130-400); RBC Distribution Width 15.1 % (11.5-14.5); White Blood Cell (WBC) Count 7.3 thou/uL (4.8-10.8)
[2017-08-15 06:05] LABS: Anion Gap 13 mmol/L (10-20); BUN (Urea Nitrogen) 10 mg/dL (9.8-20.1); Calc. Creatinine Clearance 94 mL/min (70-130); Calcium 9.9 mg/dL (7.8-10.44); Carbon Dioxide 28 mmol/L (23-31); Chloride 102 mmol/L (98-107); Estimated GFR-MDRD 67; Glucose 131 mg/dL (83-110); Potassium 4.2 mmol/L (3.5-5.1); Sodium 139 mmol/L (136-145)
[2017-08-15] MEDS: Gabapentin 300 MG CAP PO SCH ×2 (08:08→12:54)
[2017-08-15] MEDS: Senokot S 8.6-50 MG TAB PO SCH (08:08)
[2017-08-15] MEDS: Levothyroxine Sodium 125 MCG TAB PO SCH (08:08)
[2017-08-15] MEDS: Atenolol 25 MG TAB PO SCH (08:09)
[2017-08-15] MEDS: cloNIDine 0.3 MG TAB PO SCH ×2 (08:09→15:01)
[2017-08-15] MEDS: TROSPIUM 20 MG TABLET PO SCH (08:09)
[2017-08-15] MEDS: Escitalopram Oxalate 10 mg Tablet PO SCH (08:10)
[2017-08-15] MEDS: Famotidine 20 MG TAB PO SCH (08:10)
[2017-08-15] MEDS: Cephalexin 250 MG CAP PO SCH ×2 (08:10→12:54)
[2017-08-15] MEDS: HYDROcodone/Acetaminophen 5/325 mg Tablet PO PRN (08:46)
[2017-08-15] MEDS: Insulin Detemir 100 UNITS/ML 20 UNITS in Pre-Filled Syringe 1 EACH SC SCH (08:47)
[2017-08-15] MEDS: Enoxaparin Sodium 40 MG/0.4 ML SYRINGE SC SCH (09:20)
[2017-08-15] MEDS ORDERED: HYDROcodone/Acetaminophen 10/325 mg Tablet PO PRN (10:29)
--- NOTE | 2017-08-15 12:03 | DIS ---
DATE OF ADMISSION: 08/07/2017 DATE OF DISCHARGE: 08/15/2017 PRIMARY CARE PHYSICIAN: Sachi Quinonez M.D. DISCHARGE DIAGNOSES: Cellulitis of the right lower extremity. CONSULTATIONS DURING THIS HOSPITALIZATION: Infectious Disease, Dr. Prieto; Vascular Surgery, Dr. Theresa Plata; General Surgery, Dr. Remy Schaeffer. CONDITION OF PATIENT ON THE DAY OF DISCHARGE: Stable. I assessed Ms. Negron on the day of discharge. She denies any chest pain or shortness of breath. No fevers. Vital signs are stable. S1 and S2 a re heard, regular. Lungs are clear to auscultation bilaterally. DISCHARGE MEDICATIONS: In addition to her preadmission home medications as dictated on history and p hysical note from 08/08/2017, she is being discharged home on cephalexin 500 mg 4 times a day for 2 w eeks. Please note that Infectious Diseases service also recommends eventually transitioning her to s uppressive penicillin-VK 250 mg twice daily for 6-12 months. HOSPITAL COURSE: Ms. Negron is a pleasant 72-year-old lady who was admitted to [facility] on 08/15/2017, for cellulitis of the right lower extremity. Vascular ultrasound done on 08/07/2017, did not show any evidence of deep venous thrombosis. She had multiloculated complex cyst ic structure in the anterior superficial soft tissues of the right midthigh immediately adjacent to a nd above the right superficial femoral artery. She went on to have soft tissue ultrasound on 018, which showed edematous changes within the soft tissues, but no signs of an abscess. She was see n by General Surgery and Vascular Surgery services as well as Infectious Diseases service. Vascular Surgery service did not feel that there were any vascular issues. She improved with intravenous antibiotics and was subsequently stepped on to oral antibiotics. I am discharging her home on 2 weeks of cephalexin. She will need to be reassessed by her primary care ph ysician and antibiotic duration determined as an outpatient. Following cephalexin, she will need to be transitioned to Penicillin-VK 250 mg 2 times a day for 6-12 months, as per Infectious Disease serv ice recommendations. Arrangements were also being made for resumption of home health services for physical therapy and mohsen sing. On the day of discharge, she has white count of 7300, platelet count 213,000, hemoglobin 10.7, normal electrolytes and normal creatinine. Cultures from the wound grew Streptococcus agalactiae group B. Urine cultures grew yeast. Blood cul tures were negative. Many thanks for allowing me to participate in your patient's care. Please feel free to contact me wi th any questions or concerns. DISCHARGE DESTINATION: Home. TOTAL AMOUNT OF TIME SPENT COORDINATING THIS DISCHARGE: 33 minutes.
[2017-08-15] MEDS ORDERED: metFORMIN XR 500 MG TAB PO SCH (17:00)
[2017-08-15] MEDS ORDERED: Non-Formulary Item 1 EACH (Metformin Hcl [Metformin Hcl Er] 1,000 MG) PO SCH (17:00)
[2017-08-15 18:18] VITALS: BP 153/88; TEMP 97.9
[2017-08-15] MEDS ORDERED: Atorvastatin Calcium 20 MG TAB PO SCH (21:00)
[2017-08-15] MEDS ORDERED: INSULIN GLARGINE HUM REC ANLOG 25 UNIT SQ SCH (21:00)
[2017-08-15] MEDS ORDERED: Insulin Detemir 100 UNITS/ML 25 UNITS in Pre-Filled Syringe 1 EACH SC SCH (21:00)
[2017-08-15] MEDS ORDERED: Simvastatin 40 MG TAB PO SCH (21:00)
[2017-08-16] MEDS ORDERED: Non-Formulary Item 1 EACH (Insulin Glargine,Hum.Rec.Anlog [Lantus] 20 UNITS) SQ SCH (09:00)
[2017-08-16] MEDS ORDERED: Insulin Detemir 100 UNITS/ML 20 UNITS in Pre-Filled Syringe 1 EACH SC SCH (09:00)
[2017-08-16] MEDS ORDERED: Triamterene/Hydrochlorothiazide 37.5 mg/25 mg Tablet PO SCH ×2 (09:00)
[2017-08-16] MEDS ORDERED: Aspirin 81 mg Enteric Coated Tablet PO SCH (09:00)
[2017-08-16] MEDS ORDERED: Lisinopril 20 MG TAB PO SCH (09:00)
--- NOTE | 2017-08-21 20:21 | EKG ---
Test Reason : Blood Pressure : / mmHG Vent. Rate : 063 BPM Atrial Rate : 063 BPM P-R Int : 094 ms QRS Dur : 150 ms QT Int : 508 ms P-R-T Axes : 033 011 116 degrees QTc Int : 519 ms AV sequential or dual chamber electronic pacemaker Confirmed by IDALIA CONNELLY MD ([id number]), assignment editor CHRIS LOBATO ([id number]) on 08/21/2017 8:20:30 PM Referred By: Confirmed By:IDALIA CONNELLY MD
== END 2017-08-15 17:49 | disposition home health service (06) | DRG 872 ==
LOC: ERS 11:57 → T4-B 17:38
PROVIDERS: ADMIT Internal Medicine Infectious Disease; ATTEND Internal Medicine Infectious Disease
DX: A40.1 Sepsis due to streptococcus, group B (principal); N17.9 Acute kidney failure, unspecified; E11.51 Type 2 diabetes mellitus with diabetic peripheral angiopathy without gangrene; E66.01 Morbid (severe) obesity due to excess calories; I48.2 Chronic atrial fibrillation; L03.115 Cellulitis of right lower limb; Z68.41 Body mass index [BMI] 40.0-44.9, adult; L97.411 Non-pressure chronic ulcer of right heel and midfoot limited to breakdown of skin; L97.519 Non-pressure chronic ulcer of other part of right foot with unspecified severity; E03.9 Hypothyroidism, unspecified; E78.5 Hyperlipidemia, unspecified; I10 Essential (primary) hypertension; G47.33 Obstructive sleep apnea (adult) (pediatric); I25.10 Atherosclerotic heart disease of native coronary artery without angina pectoris; B95.1 Streptococcus, group B, as the cause of diseases classified elsewhere; Z85.89 Personal history of malignant neoplasm of other organs and systems; Z87.891 Personal history of nicotine dependence; Z92.3 Personal history of irradiation; Z88.5 Allergy status to narcotic agent; Z88.0 Allergy status to penicillin; Z88.2 Allergy status to sulfonamides; Z88.8 Allergy status to other drugs, medicaments and biological substances; Z91.018 Allergy to other foods; Z79.82 Long term (current) use of aspirin; Z79.4 Long term (current) use of insulin; Z79.899 Other long term (current) drug therapy; Z95.1 Presence of aortocoronary bypass graft; Z95.0 Presence of cardiac pacemaker; Z96.652 Presence of left artificial knee joint
CPT/HCPCS: 36415; 36416; 51701; 71045; 76999; 80048; 80053; 81003; 81015; 83036; 83605; 83735; 85007; 85025; 85027; 85610; 85652; 85730; 86140; 87040; 87070; 87077; 87086; 87205; 93005; 94760; 96361; 96365; 96368; 96375; G8978-GP-CK; G8979-GP-CI; G8987-GO-CL; G8988-GO-CJ; J0692; J0696; J1650; J1815; J2405; J3370; J3490; J7050; Q0162

== ENCOUNTER 2017-08-16 12:56 | Outpatient (CLI) | payer MEDICARE | END 2017-08-16 12:57 | disposition home or self-care (01) | LOC: BICULT 12:56 | PROVIDERS: ATTEND Urology | DX: N20.0 Calculus of kidney (principal); K80.20 Calculus of gallbladder without cholecystitis without obstruction; K59.00 Constipation, unspecified; I70.90 Unspecified atherosclerosis | CPT/HCPCS: 36415; 74018; 76770; 80048; 81003; 81015; 83970; 84550; 87086 ==

== ENCOUNTER 2017-09-22 13:13 | Outpatient (CLI) | payer MEDICARE ==
--- NOTE | 2017-09-22 14:44 | PRG ---
DATE OF SERVICE: 09/22/2017 HISTORY: Ms. Sachi Negron is a very pleasant 72-year-old who presents to the [facility] for evaluation of 2 ulcerations of the right foot. One ulceration is located over the right heel, and another ulceration is located over the right Achilles tendon. The patient has been receiving dressing changes with the assistance of Home Health since her last visit to the Wound Center. Ms. Negron has no complaints today. She denies any fever or chills. PHYSICAL EXAMINATION: VITAL SIGNS: Temperature 97.1, pulse 60, respirations 17, blood pressure 118/ 59. Accu-Chek 209. EXTREMITIES: The ulceration over the right heel measures approximately 3.2 x 5.0 cm. The ulceration over the right Achilles tendon measures approximately 2.1 x 2.3 cm. Necrotic and nonviable tissue present within the margins of each wound was debrided with an excisional full-thickness debridement with the use of scissors and a curette. No purulent drainage is associated with either wound. No erythema of the skin surrounding either wound is present. No maceration of the skin of the periwound of either wound is noted. A dorsalis pedis pulse is palpable on the right. No significant edema of the right foot is present on exam today. Dermagraft was divided into 2 pieces and applied to the wound bed of each ulceration followed by Adaptic touch, a gauze bolster, 4 x 4s, an ABD, Webril, and the 3M Coban 2-layer compression system. ASSESSMENT AND PLAN: 1. Ulcerations of right foot as described above. Dermagraft was applied to the wound bed of each ulceration today. I will see Ms. Negron again in one week. At this time, consideration will be given to another placement of Dermagraft. 2. Hypertension. 3. Diabetes mellitus. The patient's Accu-Chek in clinic today is 209. The patient has been reminded that for optimal wound healing, her blood glucoses should remain below 150. 4. Hypothyroidism. 5. Coronary artery disease. 6. Osteoarthritis. 7. Hepatitis A. 8. Obstructive sleep apnea. 9. Peripheral vascular disease. 10. Nephrolithiasis. MTDD
[2017-09-22] MEDS ORDERED: Sodium Chloride 0.9% 15 ML NEB ONE (17:53)
[2017-09-22] MEDS ORDERED: Lidocaine 2% Jelly 5 ML TUBE ONE (17:53)
== END 2017-09-22 13:14 | disposition home or self-care (01) ==
LOC: WCC 13:13
PROVIDERS: ATTEND Family Medicine
DX: E11.621 Type 2 diabetes mellitus with foot ulcer (principal); L97.519 Non-pressure chronic ulcer of other part of right foot with unspecified severity; I10 Essential (primary) hypertension; E03.9 Hypothyroidism, unspecified; I25.10 Atherosclerotic heart disease of native coronary artery without angina pectoris; M19.90 Unspecified osteoarthritis, unspecified site; B15.9 Hepatitis A without hepatic coma; G47.33 Obstructive sleep apnea (adult) (pediatric); I73.9 Peripheral vascular disease, unspecified; N20.0 Calculus of kidney
CPT/HCPCS: 15275; A4218; Q4106-KX-JC

== ENCOUNTER 2017-09-24 15:03 | Inpatient (IN) | payer MEDICARE ==
--- NOTE | 2017-09-24 16:27 | RAD ---
RADIOGRAPH CHEST 1 VIEW: 09/24/17 HISTORY: 72-year-old female with dyspnea. FINDINGS: There is no air space density, pulmonary edema, or pneumothorax. The lateral costophrenic angles are sharp. Sternotomy wires. Dual lead left subclavian pacemaker. IMPRESSION: 1. No acute pulmonary findings. 2. Pacemaker. 3. Evidence of previous open heart surgery. sherri [] POS: HENRY
[2017-09-24 16:39] LABS: Hemoglobin 12.7 g/dL (12.0-16.0); Mean Corpuscular HGB CONC 34.3 g/dL (32.0-36.0); Mean Corpuscular Hemoglobin 29.4 pg (27.0-31.0); Mean Corpuscular Volume 85.8 fl (81.0-99.0); Mean Platelet Volume 8.2 fL (7.4-10.4); Platelet Count 149 thou/uL (130-400); RBC Distribution Width 14.3 % (11.5-14.5); Red Blood Cell (RBC) Count 4.34 mill/uL (4.20-5.40)
--- NOTE | 2017-09-24 16:51 | RAD ---
RIGHT KNEE 4 VIEWS: HISTORY: Knee pain. COMPARISON: Knee radiographs 2017. FINDINGS: The heterotopic ossification of the quadriceps tendon has slightly increased. There is abnormal soft tissue swelling around the knee. No fracture. No malalignment. No significant joint effusion is appreciated. IMPRESSION: Soft tissue swelling suggesting cellulitis. POS: HENRY
[2017-09-24 16:56] LABS: CKMB 0.8 ng/mL (0-6.6); Troponin I 0.138 ng/mL (< 0.028)
[2017-09-24 17:01] LABS: ALT (SGPT) 22 U/L (8-55); AST (SGOT) 21 U/L (5-34); Albumin 4.2 g/dL (3.4-4.8); Alkaline Phosphatase 87 U/L (40-150); Anion Gap 17 mmol/L (10-20); BUN (Urea Nitrogen) 30 mg/dL (9.8-20.1); Bilirubin, Total 0.6 mg/dL (0.2-1.2); CK (CPK) 38 U/L (29-168); Calc. Creatinine Clearance 0 mL/min (70-130); Calcium 10.1 mg/dL (7.8-10.44); Carbon Dioxide 23 mmol/L (23-31); Chloride 100 mmol/L (98-107); Estimated GFR-MDRD 43; Globulin 3.4 g/dL (2.4-3.5); Glucose 188 mg/dL (83-110); Lipase 17 U/L (8-78); Potassium 5.2 mmol/L (3.5-5.1); Protein, Total 7.6 g/dL (6.0-8.3); Sodium 135 mmol/L (136-145)
[2017-09-24 17:11] LABS: Band 18 % (5-11); Lymphocytes 4 % (21-51); MDiff Complete? YES; Monocytes 5 % (0-10); Neutrophil 73 % (42-75); PLT Morphology Comment Appears Adequate
--- NOTE | 2017-09-24 17:23 | ULT ---
DOPPLER VENOUS ULTRASOUND OF THE RIGHT LOWER EXTREMITY: 09/24/17 INDICATION: Concern for DVT within the right lower extremity. Right lower extremity edema. TECHNIQUE: Thompson scale, color doppler and vascular duplex with spectral analysis was performed of the deep venous structures of the right lower extremity. Common femoral vein, superficial femoral vein, popliteal ve in, posterior tibial vein, proximal greater saphenous and profunda veins were assessed. FINDINGS: Normal compression, flow, and augmentation seen within the visualized deep venous structures of the r ight lower extremity. There is some mild shadowing due to a femoral artery bypass graft within the di stal superficial femoral and slightly obscures the distal superficial femoral vein. Visualized portio ns appear within normal limits. IMPRESSION: No evidence of DVT to the right lower extremity. POS: HENRY
[2017-09-24] MEDS ORDERED: Acetaminophen 500 MG TAB ONE (17:26)
[2017-09-24] MEDS ORDERED: Clindamycin/D5W 600 mg/50 ml Premix Bag ONE (17:52)
[2017-09-24 17:56] LABS: Bilirubin Negative (Negative); Blood, Urine Negative (Negative); Clarity CLEAR (Clear); Glucose, Urine (Dipstick) 100 mg/dL (Negative); Leukocyte Small (Negative); Nitrite Negative (Negative); Protein, Urine (Dipstick) 30 mg/dL (Neg-Trace); Specific Gravity, Urine 1.017 (1.002-1.036)
[2017-09-24 17:58] LABS: Bacteria/HPF None Seen HPF (None Seen); Hyaline Casts/LPF 0-3 HYALINE CAST LPF (0-3 Hyaline); Pathc Cast-AUWi Flag 0.72 (0-2.49); RBC/HPF 0-3 HPF (0-3); Yeast-AUWi Flag 19.4 (0-25.0)
[2017-09-24 18:16] LABS: Crystals/HPF None Seen HPF (Negative); Oval Fat Bodies/HPF None Seen HPF (None Seen); Renal Epithelial None Seen HPF (0-3); Transitional Epithelial NONE SEEN HPF (0-3); Trichomonas/HPF None Seen HPF (None Seen); Yeast-All Forms 1+ HPF (None Seen)
[2017-09-24 20:09] LABS: Troponin I 0.197 ng/mL (< 0.028)
[2017-09-24 20:24] LABS: Lactic Acid 2.2 mmol/L (0.5-2.2)
[2017-09-24] MEDS ORDERED: Sodium Chloride 0.9% 1,000 ML IV SCH (21:46)
[2017-09-24] MEDS ORDERED: Ondansetron ODT 4 MG TAB SL PRN (21:46)
[2017-09-24] MEDS ORDERED: Ondansetron HCl/PF 4 MG/2 ML Vial IVP PRN ×2 (21:46→23:17)
[2017-09-24 22:36] LABS: Troponin I 0.207 ng/mL (< 0.028)
[2017-09-24] MEDS ORDERED: cefTRIAXone\\ROCEPHIN 2 GM in Sodium Chloride 0.9% 100 ML IVPB SCH (23:17)
[2017-09-24] MEDS ORDERED: Dextrose 5% in Water 1,000 ML IV PRN (23:17)
[2017-09-24] MEDS ORDERED: HYDROcodone/Acetaminophen 10/325 mg Tablet PO PRN (23:17)
[2017-09-24] MEDS ORDERED: Acetaminophen 500 MG TAB PO PRN (23:17)
[2017-09-24] MEDS ORDERED: Ondansetron ODT 4 MG TAB PO PRN (23:17)
[2017-09-24] MEDS ORDERED: Dextrose 50% Abboject 50 ML SYRINGE SLOW IVP PRN (23:17)
[2017-09-24] MEDS ORDERED: HumaLOG 300 UNITS/3 ML VIAL SC PRN (23:17)
[2017-09-25] MEDS: cefTRIAXone\\ROCEPHIN 2 GM in Sodium Chloride 0.9% 100 ML IVPB SCH (01:12)
[2017-09-25] MEDS: cloNIDine 0.1 MG TAB PO PRN ×2 (01:12→21:48)
[2017-09-25] MEDS: Sodium Chloride 0.9% 1,000 ML IV SCH ×2 (01:13→15:59)
[2017-09-25] MEDS: Clindamycin/D5W 600 MG in Premix Bag 1 BAG IVPB SCH ×3 (02:36→17:29)
--- NOTE | 2017-09-25 02:44 | HP ---
PRIMARY CARE PHYSICIAN: Dr. Sachi Quinonez. CHIEF COMPLAINT: Right leg swelling and dizziness. HISTORY OF PRESENT ILLNESS: This is a 72-year-old female who presents to [facility] department complaining of dizziness with chills and right lower extremity redness. The patient s tates she received a skin graft of the Achilles area of the right lower extremity 3 days prior to thi s evaluation at the [facility]. The patient had recently been admitted to 08/07/2017 through 08/15/2017 for protracted cellulitis of the right lower extremity. The patien t was eventually transitioned to Keflex which he took for approximately 2 weeks after discharge compl eting the antibiotic with overall improvement in the right lower extremity cellulitis. The patient s tates she subsequently underwent skin grafting of the right Achilles region of the lower extremity th en developed the redness, chills and fever on the date of admission. The patient also complained of associated dizziness and nausea while working on a computer at home. The patient states she stood up and felt like the room was spinning and felt like she was going to fall down. The patient does stat e that she fell approximately 2 weeks ago striking her head, but did not seek any medical attention a t that time. The patient uses a rolling walker for ambulation and generally is able to perform all a ctivities of daily living. The patient denies any specific loss of consciousness, increased shortnes s of breath, chest pain, unilateral weakness or visual disturbance. In the emergency room, the claribel ramos underwent general evaluation including radiographs of the right knee. Vascular ultrasound and pat st imaging all showing essentially negative findings. The patient was noted with elevated temperatur e of 101.7 degrees Fahrenheit with leukocytosis up to 18,000 and lactate of 3.5. The patient was tyler ated for an acute cellulitis of the right lower extremity receiving clindamycin 600 mg IV and vancomy maricarmen 1 gram IV. The patient also received Tylenol and intravenous normal saline x2 liters. The claribel ramos was transferred to the telemetry unit for further evaluation. PAST MEDICAL HISTORY: 1. Status post cellulitis of the right lower extremity with inpatient hospitalization 08/07/2017 thr ough 08/15/2017. 2. Status post skin grafting of the right Achilles region of the right lower extremity, 08/2017. 3. Sepsis secondarily to right lower extremity cellulitis with Streptococcus agalactia group B. 4. Diabetes mellitus type 2. 5. Hypothyroidism. 6. Hyperlipidemia. 7. Hypertension. 8. Obstructive sleep apnea, on nocturnal CPAP. 9. History of vulvar cancer status post-surgical resection and radiation. 10. Morbid obesity. 11. History of falls. PAST SURGICAL HISTORY: 1. Status post left shoulder repair. 2. Status post right total knee arthroplasty. 3. Status post coronary artery bypass grafting x4 vessels. 4. Status post left carotid stent placement. 5. Status post permanent pacemaker placement. 6. Status post vulvar resection. 7. Status post back surgery x3. 8. Status post left foot bunionectomy. 9. Status post skin grafting of the right lower extremity. 10. Status post appendectomy. 11. Status post tonsillectomy. 12. Status post left cataract removal. CURRENT MEDICATIONS: 1. Enteric-coated aspirin 81 mg 1 tab p.o. daily. 2. Atenolol 75 mg p.o. b.i.d. 3. Vitamin D3 of 2000 units p.o. daily. 4. Lexapro 10 mg p.o. daily. 5. Gabapentin 600 mg p.o. t.i.d. 6. [place] 10/325 mg 1 tab p.o. q.8 hours p.r.n. pain. 7. Glargine insulin 20 units subcutaneously daily and 25 units subcutaneously at bedtime. 8. Levothyroxine 125 mcg p.o. daily. 9. Lisinopril 80 mg p.o. daily. 10. Metformin ER 1000 mg p.o. b.i.d. 11. Simvastatin 40 mg p.o. at bedtime. 12. Tolterodine tartrate 4 mg p.o. daily. 13. Triamterene/hydrochlorothiazide 37.5/25 mg 1 tab p.o. daily. ALLERGIES: COCONUT, CODEINE, PENICILLIN, SULFA, TIZANIDINE, and TORADOL. FAMILY HISTORY: No inheritable diseases per patient report. SOCIAL HISTORY: Patient resides in [place], [place]. Functional of all activities of daily li ving. Ambulates with rolling walker. . No current alcohol, tobacco or illicit drug use. REVIEW OF SYSTEMS: The following complete review of systems was negative, unless otherwise mentioned in the HPI or below: Constitutional: Weight loss or gain, ability to conduct usual activities. Sk in: Rash, itching. Eyes: Double vision, pain. ENT/Mouth: Nose bleeding, neck stiffness, pain, te nderness. Cardiovascular: Palpitations, dyspnea on exertion, orthopnea. Respiratory: Shortness of breath, wheezing, cough, hemoptysis, fever or night sweats. Gastrointestinal: Poor appetite, abdom inal pain, heartburn, nausea, vomiting, constipation, or diarrhea. Genitourinary: Urgency, frequenc y, dysuria, nocturia. Musculoskeletal: Pain, swelling. Neurologic/Psychiatric: Anxiety, depressio n. Allergy/Immunologic: Skin rash, bleeding tendency. PHYSICAL EXAMINATION: VITAL SIGNS: On admission, blood pressure 144/50, pulse 77, respiratory rate 20, temperature 100.7 d egrees Fahrenheit, O2 saturation 93% on room air. GENERAL APPEARANCE: This is a 72-year-old female, alert and oriented x3, pleasant, convers ant, in no acute distress. HEENT: Pupils are equal, round, and reactive to light and accommodation. Extraocular muscles are in tact. No scleral icterus, no conjunctival injection. Nares patent. OP is clear. Oral mucosa dry. NECK: Supple, no cervical adenopathy, no thyromegaly, no carotid bruits, no JVD appreciated. Cervic al spine, full active and passive range of motion. No meningeal signs noted. CHEST: Diminished breath sounds in the bases bilaterally. CARDIOVASCULAR: S1, S2 with 1-2/6 systolic ejection murmur loudest in the right upper sternal border . Post-surgical changes in the medium sternum consistent with prior coronary artery bypass grafting. ABDOMEN: Obese, soft, nontender, nondistended. Bowel sounds are positive in all four quadrants. Sh e has no hepatosplenomegaly, no abdominal bruits, no rebound or guarding appreciated. EXTREMITIES: Right lower extremity with erythema from the greater trochanter and pelvic region to th e proximal tibia. Positive warmth and mild tenderness to palpation with edema of the thigh region la terally. No open wound noted. Distal right lower extremity with Kwaku wrap in place. Pulses palpable distally at the dorsalis pedis, posterior tibial, and popliteal arteries bilaterally. Capillary ref ill less than 2 seconds. NEUROLOGIC: Cranial nerves II-XII are grossly intact. No focal or lateralizing signs appreciated. PERTINENT LABORATORY AND X-RAY FINDINGS: Sodium 135, potassium 5.2, chloride 100, CO2 of 23, anion g ap 17, BUN 30, creatinine 1.23 with estimated GFR 43, glucose 188. Lactic acid level 3.5, calcium 10 .1, magnesium 2.0. LFTs within normal limits. Troponin I ranged between 0.138-0.207. BNP 347. Alb umin 4.2. TSH 0.38. CBC showed a white blood cell count of 18, hemoglobin 13, hematocrit 37, platel et count 149 with 73% neutrophils, 18% bands. D-dimer 2.27. Urinalysis showed positive glucose, sma ll leukocyte esterase with 11-20 wbc's per high power field, 4-6 squamous epithelial cells noted. Po sitive yeast. Influenza A and B antigen dated 09/24/2017 negative. Portable chest x-ray dated 09/24 showed no acute cardiopulmonary process. Pacemaker device in place. Right lower extremity kartik ous Doppler study dated 09/24/2017 showed no evidence for DVT. Four views of the right knee dated showed soft tissue swelling suggestive of cellulitis. EKG dated 09/24/2017 by my interpreta tion shows electronic ventricular pacing with heart rates in the 70s. ASSESSMENT AND PLAN: 1. Sepsis secondarily to right lower extremity cellulitis. The patient will be admitted to the tele metry unit. The patient initially received 2 liters of normal saline in the emergency room. We will continue IV antibiotic coverage with vancomycin 1 gram IV q.12 hours with additional clindamycin 600 mg IV q.8 hours. We will add Rocephin 2 grams IV q.24 hours. Blood cultures x2 pending. Serial la ctate assessment per sepsis protocol. 2. Right lower extremity cellulitis, recurrent. The patient with prior history of cellulitis in 2017 with Streptococcus agalactia group B isolated from right foot abscess. We will continue coverag e for Streptococcus and Staphylococcus species as stated previously. Consider Infectious Disease con sult if minimal improvement in the next 24-48 hours. 3. Acute kidney injury on chronic kidney disease stage 2. We will continue intravenous normal salin e at 75 mL per hour. Avoid nephrotoxic agents and limit contrast exposure. Hold home diuretic thera py. Hold lisinopril. 4. Elevated troponin I. I suspect demand ischemia as underlying etiology in the context of sepsis. No current evidence to suggest acute coronary syndrome. Check 2D transthoracic echocardiogram in th e a.m. 5. Leukocytosis with bandemia secondarily to #1. 6. Continue serial CBC monitoring. Continue IV antibiotics as outlined in #1. 7. Diabetes mellitus type 2, insulin requiring. Insulin sliding scale for reflexive coverage. Resu me Glargine 20 units subcutaneously daily and 25 units subcutaneously at bedtime. Accu-Cheks a.c. an d at bedtime. ADA diet. 8. Prophylaxis. Sequential compression devices will be held due to lower extremity edema and active infection. Lovenox 30 mg subcutaneously q.24 hours. 9. CODE STATUS is FULL. Surrogate medical decision maker is patient's spouse.
[2017-09-25 05:49] LABS: Band 6 % (5-11); Eosinophils 1 % (0-10); Hemoglobin 11.2 g/dL (12.0-16.0); Lymphocytes 9 % (21-51); MDiff Complete? YES; Mean Corpuscular HGB CONC 32.9 g/dL (32.0-36.0); Mean Corpuscular Hemoglobin 29.6 pg (27.0-31.0); Mean Corpuscular Volume 90.1 fl (81.0-99.0); Mean Platelet Volume 8.8 fL (7.4-10.4); Monocytes 1 % (0-10); Neutrophil 83 % (42-75); Platelet Count 132 thou/uL (130-400); RBC Distribution Width 14.5 % (11.5-14.5); Red Blood Cell (RBC) Count 3.79 mill/uL (4.20-5.40); White Blood Cell (WBC) Count 10.3 thou/uL (4.8-10.8)
[2017-09-25 06:05] LABS: ALT (SGPT) 18 U/L (8-55); AST (SGOT) 20 U/L (5-34); Albumin 3.4 g/dL (3.4-4.8); Alkaline Phosphatase 67 U/L (40-150); Anion Gap 16 mmol/L (10-20); BUN (Urea Nitrogen) 25 mg/dL (9.8-20.1); Bilirubin, Total 0.5 mg/dL (0.2-1.2); Calc. Creatinine Clearance 77 mL/min (70-130); Carbon Dioxide 19 mmol/L (23-31); Chloride 104 mmol/L (98-107); Estimated GFR-MDRD 50; Globulin 2.9 g/dL (2.4-3.5); Glucose 150 mg/dL (83-110); Potassium 4.6 mmol/L (3.5-5.1); Protein, Total 6.3 g/dL (6.0-8.3); Sodium 134 mmol/L (136-145)
[2017-09-25] MEDS: Vancomycin HCl 1 GM in Premix Bag 1 BAG IVPB SCH ×2 (06:06→17:28)
[2017-09-25] MEDS: Levothyroxine Sodium 125 MCG TAB PO SCH (06:07)
[2017-09-25] MEDS: HumaLOG 300 UNITS/3 ML VIAL SC PRN ×3 (08:19→17:27)
[2017-09-25] MEDS: Insulin Detemir 100 UNITS/ML 20 UNITS in Pre-Filled Syringe 1 EACH SC SCH (08:20)
[2017-09-25] MEDS: Enoxaparin Sodium 30 MG/0.3 ML SYRINGE SC SCH (08:20)
[2017-09-25] MEDS: Famotidine 20 MG TAB PO SCH ×2 (08:21→21:45)
[2017-09-25] MEDS: Atenolol 25 MG TAB PO SCH ×2 (08:21→21:45)
[2017-09-25] MEDS: Aspirin 81 mg Enteric Coated Tablet PO SCH (08:22)
[2017-09-25] MEDS: Escitalopram Oxalate 10 mg Tablet PO SCH (08:22)
[2017-09-25] MEDS: Gabapentin 300 MG CAP PO SCH ×3 (08:22→21:45)
[2017-09-25] MEDS: TROSPIUM 20 MG TABLET PO SCH ×2 (08:23→21:45)
[2017-09-25] MEDS: metFORMIN XR 500 MG TAB PO SCH ×2 (08:23→17:28)
[2017-09-25] MEDS ORDERED: Triamterene/Hydrochlorothiazide 37.5 mg/25 mg Tablet PO SCH (09:00)
[2017-09-25] MEDS ORDERED: Non-Formulary Item 1 EACH (Insulin Glargine,Hum.Rec.Anlog [Lantus] 20 UNITS) SQ SCH (09:00)
[2017-09-25] MEDS ORDERED: Lisinopril 20 MG TAB PO SCH (09:00)
--- NOTE | 2017-09-25 12:04 | CON ---
DATE OF CONSULTATION: 09/25/2017. HISTORY OF PRESENT ILLNESS: Ms. Negron is a 72-year-old white female who has diabetes mellitus and floyd s had recurrent infection with cellulitis of the right hip and thigh and sometimes down into the righ t leg. She has multiple medical problems including coronary artery disease, peripheral vascular dise ase, cardiac arrhythmia, hyperlipidemia, hypothyroidism, hypertension, obstructive sleep apnea, and m orbid obesity. The patient had a right total knee replacement performed by Dr. Gutiérrez. Unfortunatel y, it became infected and they had to remove a portion of the total knee and put a spacer in the knee . This was performed about 8 months ago. The patient was seen by Dr. Prieto and was on extended IV a ntibiotics. She has been on p.o. antibiotics including Keflex and she stopped the Keflex approximate ly 2 weeks ago, she had a skin graft over the right Achilles region a few days ago. She was admitted for cellulitis of the right hip and lower extremity from 08/07/2017 through 08/15/2017, last month. She developed the erythema and pain in the right hip and lower extremity and presented to the emerge ncy room, she was found to have a temperature of 101.7 and a leukocytosis of 18,000. She states that since yesterday after she was started on IV antibiotics, she is feeling much better. She has less p ain, swelling, and erythema in the right hip and lower extremity. Because she had a previous total k nee replacement, Orthopedic was consulted for evaluation. PHYSICAL EXAMINATION: EXTREMITIES: Patient has some erythema on the posterior aspect of the right hip and lateral aspect o f the hip down into the lateral and posterior aspect of the thigh. The right knee does not appear to be involved. There is no swelling in the right knee. No erythema over the knee. She has a well-he aled scar in the anterior aspect of the knee. There is a dressing on the ankle and foot, because of the skin graft. The area just proximal to the skin graft shows no swelling or erythema and this does not appear to be infected. X-rays of the right knee shows spacer in the knee. There is a femoral p rosthesis cemented into place and appears to be in good position and there are no signs of infection in the femur. IMPRESSION: Cellulitis of right hip and thigh already showing good improvement with IV antibiotics. There does not appear to be any involvement of the knee. PLAN: The acting teacher will continue to provide IV antibiotics for the patient for the cellulitis. The re is a question that they may have Dr. Prieto consult if she does not show good improvement, but sinc e yesterday, she has already showing good improvement. Nothing orthopedically needs to be done at th is point.
[2017-09-25 13:00] VITALS: BMI 41.3
--- NOTE | 2017-09-25 14:16 | PDOC.PN ---
- Subjective Encounter Start Date: 09/25/17 Encounter Start Time: 14:13 Patient seen and examined, no new issues or complaints. States she feels well, all questions answered, no family at bedside. - Objective Resuscitation Status: Resuscitation Status FULL:Full Resuscitation Vital Signs & Weight: Vital Signs (12 hours) Temp Pulse Resp BP BP Pulse Ox 09/25/17 11:34 98 F 61 20 152/68 H 09/25/17 08:21 61 145/65 H 09/25/17 07:17 98.9 F 61 18 145/65 H 92 L 09/25/17 04:56 99.7 F H 64 16 175/72 H 92 L Weight Admit Weight 225 lb Weight 225 lb 11.2 oz I&O: 09/24/17 09/25/17 09/26/17 06:59 06:59 06:59 Intake Total 1380 Balance 1380 Result Diagrams: 09/25/17 05:12 09/25/17 05:12 Additional Labs: Accuchecks 09/25/17 09/25/17 09/24/17 10:53 05:29 22:17 POC Glucose 246 H 169 H 140 H Phys Exam - Physical Examination Constitutional: NAD obesity HEENT: PERRLA, moist MMs, sclera anicteric Neck: no nodes, no JVD, supple Respiratory: no wheezing, no rales, no rhonchi Cardiovascular: RRR, no significant murmur, no rub Gastrointestinal: soft, non-tender, no distention Musculoskeletal: pulses present, edema present (trace) cellulitis present Neurological: non-focal, normal sensation Dx/Plan (1) MARIE (acute kidney injury) Code(s): N17.9 - ACUTE KIDNEY FAILURE, UNSPECIFIED Status: Acute Comment: Saline lock IVF, avoid nephrotoxic meds and limit contrast exposure, resolving (2) Cellulitis of right leg Code(s): L03.115 - CELLULITIS OF RIGHT LOWER LIMB Status: Acute (3) CAD (coronary artery disease) Code(s): I25.10 - ATHSCL HEART DISEASE OF [place] CORONARY ARTERY W/O ANG PCTRS Status: Chronic Qualifiers: (4) Hypothyroidism Code(s): E03.9 - HYPOTHYROIDISM, UNSPECIFIED Status: Chronic (5) Morbid obesity with BMI of 40.0-44.9, adult Code(s): E66.01 - MORBID (SEVERE) OBESITY DUE TO EXCESS CALORIES; Z68.41 - BODY MASS INDEX (BMI) 40.0-44.9, ADULT Status: Chronic - Plan * cultures pending * no surgical intervention for now * elevated troponins, no chest pain or symptoms, EKG normal, will consult cardiology for input * continue abx for now * DC plans in 24-48hrs if cultures negative, patient improving and if ok with cardiology team * case and plan d/w patient at length, she understands and agrees with this plan
[2017-09-25] MEDS ORDERED: INSULIN GLARGINE HUM REC ANLOG 25 UNIT SQ SCH (21:00)
[2017-09-25] MEDS: Insulin Detemir 100 UNITS/ML 25 UNITS in Pre-Filled Syringe 1 EACH SC SCH (21:44)
[2017-09-25] MEDS: Atorvastatin Calcium 20 MG TAB PO SCH (21:45)
[2017-09-26] MEDS: cefTRIAXone\\ROCEPHIN 2 GM in Sodium Chloride 0.9% 100 ML IVPB SCH ×2 (01:08→23:40)
[2017-09-26] MEDS: Clindamycin/D5W 600 MG in Premix Bag 1 BAG IVPB SCH ×3 (01:09→18:31)
[2017-09-26] MEDS: Sodium Chloride 0.9% 1,000 ML IV SCH ×2 (01:09→15:22)
[2017-09-26] MEDS: cloNIDine 0.1 MG TAB PO PRN ×2 (04:18→16:05)
[2017-09-26] MEDS: Levothyroxine Sodium 125 MCG TAB PO SCH (04:19)
[2017-09-26] MEDS: Vancomycin HCl 1 GM in Premix Bag 1 BAG IVPB SCH ×2 (04:22→17:27)
[2017-09-26] MEDS: Enoxaparin Sodium 30 MG/0.3 ML SYRINGE SC SCH (09:25)
[2017-09-26] MEDS: Lisinopril 20 MG TAB PO SCH (09:26)
[2017-09-26] MEDS: Triamterene/Hydrochlorothiazide 37.5 mg/25 mg Tablet PO SCH (09:26)
[2017-09-26] MEDS: TROSPIUM 20 MG TABLET PO SCH ×2 (09:26→20:25)
[2017-09-26] MEDS: metFORMIN XR 500 MG TAB PO SCH ×2 (09:26→17:28)
[2017-09-26] MEDS: Gabapentin 300 MG CAP PO SCH ×3 (09:27→20:24)
[2017-09-26] MEDS: Atenolol 25 MG TAB PO SCH ×2 (09:27→20:19)
[2017-09-26] MEDS: Insulin Detemir 100 UNITS/ML 20 UNITS in Pre-Filled Syringe 1 EACH SC SCH (09:27)
[2017-09-26] MEDS: Aspirin 81 mg Enteric Coated Tablet PO SCH (09:27)
[2017-09-26] MEDS: Famotidine 20 MG TAB PO SCH ×2 (09:27→20:24)
[2017-09-26] MEDS: Escitalopram Oxalate 10 mg Tablet PO SCH (09:27)
--- NOTE | 2017-09-26 11:32 | PRG ---
DATE OF SERVICE: 09/26/2017 SUBJECTIVE: Ms. Walker states that her right leg is feeling better. Her erythema has decreased. PHYSICAL EXAMINATION: Maximum temperature is 99.1. Vital signs are stable. Erythema over the right hip, thigh, and knee are decreasing. DISCUSSION AND PLAN: Patient will continue with her IV antibiotics. We will make sure that Dr. David oliveira is aware of the patient's presence here in the hospital. I will give him a call tomorrow.
[2017-09-26] MEDS: HumaLOG 300 UNITS/3 ML VIAL SC PRN (12:17)
--- NOTE | 2017-09-26 12:19 | PDOC.PN ---
- Subjective Encounter Start Date: 09/26/17 Encounter Start Time: 12:18 Patient seen and examined, no new issues or complaints, all questions answered. - Objective Resuscitation Status: Resuscitation Status FULL:Full Resuscitation Vital Signs & Weight: Vital Signs (12 hours) Temp Pulse Resp BP BP Pulse Ox 09/26/17 09:20 98.7 F 63 18 09/26/17 08:00 98.7 F 63 18 176/72 H 94 L 09/26/17 05:11 60 20 176/76 H 09/26/17 04:18 194/79 H 09/26/17 04:00 98.1 F 61 18 194/79 H 93 L Weight Admit Weight 225 lb Weight 223 lb 9.6 oz I&O: 09/25/17 09/26/17 09/27/17 06:59 06:59 06:59 Intake Total 1380 1238 Balance 1380 1238 Result Diagrams: 09/25/17 05:12 09/25/17 05:12 Additional Labs: Accuchecks 09/26/17 09/26/17 09/25/17 11:10 05:35 20:53 POC Glucose 175 H 117 H 134 H 09/25/17 16:49 POC Glucose 161 H Phys Exam - Physical Examination Constitutional: NAD obese HEENT: PERRLA, moist MMs, sclera anicteric Neck: no nodes, no JVD, supple Respiratory: no wheezing, no rales, no rhonchi Cardiovascular: RRR, no significant murmur, no rub Gastrointestinal: soft, non-tender, no distention Musculoskeletal: pulses present, edema present (trace) cellulitis Dx/Plan (1) MARIE (acute kidney injury) Code(s): N17.9 - ACUTE KIDNEY FAILURE, UNSPECIFIED Status: Acute Comment: Saline lock IVF, avoid nephrotoxic meds and limit contrast exposure, resolving (2) Cellulitis of right leg Code(s): L03.115 - CELLULITIS OF RIGHT LOWER LIMB Status: Acute (3) CAD (coronary artery disease) Code(s): I25.10 - ATHSCL HEART DISEASE OF [place] CORONARY ARTERY W/O ANG PCTRS Status: Chronic Qualifiers: (4) Hypothyroidism Code(s): E03.9 - HYPOTHYROIDISM, UNSPECIFIED Status: Chronic (5) Morbid obesity with BMI of 40.0-44.9, adult Code(s): E66.01 - MORBID (SEVERE) OBESITY DUE TO EXCESS CALORIES; Z68.41 - BODY MASS INDEX (BMI) 40.0-44.9, ADULT Status: Chronic - Plan * continue abx for now, patient doing well * WBC count trending down * cultures pending * no surgical intervention per orthopedics * will obtain labs in AM * will consider ID consultation depending on culture results or if patient's condition deteriorates * case and plan d/w patient at length, she understands and agrees with this plan
[2017-09-26] MEDS: hydrALAZINE 20 MG/ML VIAL SLOW IVP PRN (17:28)
[2017-09-26] MEDS: Atorvastatin Calcium 20 MG TAB PO SCH (20:24)
[2017-09-26] MEDS: Insulin Detemir 100 UNITS/ML 25 UNITS in Pre-Filled Syringe 1 EACH SC SCH (21:10)
[2017-09-27] MEDS: Clindamycin/D5W 600 MG in Premix Bag 1 BAG IVPB SCH ×3 (01:18→18:53)
[2017-09-27] MEDS: Vancomycin HCl 1 GM in Premix Bag 1 BAG IVPB SCH ×2 (05:39→16:59)
[2017-09-27] MEDS: Levothyroxine Sodium 125 MCG TAB PO SCH (05:40)
[2017-09-27] MEDS: Sodium Chloride 0.9% 1,000 ML IV SCH ×2 (05:40→19:20)
[2017-09-27] MEDS: cloNIDine 0.1 MG TAB PO PRN (05:50)
[2017-09-27 05:55] LABS: #Eosinphils 0.5 thou/uL (0.0-0.7); #Lymphocytes 1.4 thou/uL (1.20-3.40); #Monocytes 0.7 thou/uL (0.11-0.59); #Neutrophils 5.9 thou/uL (1.40-6.50); %Basophils 0.6 % (0.0-1.0); %Eosinophils 5.9 % (0.0-10.0); %Lymphocytes 16.2 % (21.0-51.0); %Monocytes 8.1 % (0.0-10.0); %Neutrophils 69.3 % (42.0-75.0); Hemoglobin 12.2 g/dL (12.0-16.0); Mean Corpuscular HGB CONC 33.8 g/dL (32.0-36.0); Mean Corpuscular Hemoglobin 30.1 pg (27.0-31.0); Mean Platelet Volume 8.1 fL (7.4-10.4); Platelet Count 156 thou/uL (130-400); RBC Distribution Width 14.2 % (11.5-14.5); Red Blood Cell (RBC) Count 4.07 mill/uL (4.20-5.40); White Blood Cell (WBC) Count 8.5 thou/uL (4.8-10.8)
[2017-09-27 06:29] LABS: Anion Gap 14 mmol/L (10-20); BUN (Urea Nitrogen) 21 mg/dL (9.8-20.1); Calc. Creatinine Clearance 87 mL/min (70-130); Calcium 9.8 mg/dL (7.8-10.44); Carbon Dioxide 25 mmol/L (23-31); Chloride 103 mmol/L (98-107); Estimated GFR-MDRD 60; Glucose 122 mg/dL (83-110); Potassium 4.2 mmol/L (3.5-5.1); Sodium 138 mmol/L (136-145)
[2017-09-27] MEDS: Gabapentin 300 MG CAP PO SCH ×3 (08:41→20:55)
[2017-09-27] MEDS: Triamterene/Hydrochlorothiazide 37.5 mg/25 mg Tablet PO SCH (08:42)
[2017-09-27] MEDS: Atenolol 25 MG TAB PO SCH ×2 (08:42→19:35)
[2017-09-27] MEDS: Escitalopram Oxalate 10 mg Tablet PO SCH (08:42)
[2017-09-27] MEDS: metFORMIN XR 500 MG TAB PO SCH ×2 (08:42→16:59)
[2017-09-27] MEDS: TROSPIUM 20 MG TABLET PO SCH ×2 (08:42→20:55)
[2017-09-27] MEDS: Aspirin 81 mg Enteric Coated Tablet PO SCH (08:42)
[2017-09-27] MEDS: Famotidine 20 MG TAB PO SCH ×2 (08:43→20:55)
[2017-09-27] MEDS: Insulin Detemir 100 UNITS/ML 20 UNITS in Pre-Filled Syringe 1 EACH SC SCH (08:43)
--- NOTE | 2017-09-27 08:48 | CON ---
DATE OF CONSULTATION: 09/25/2017 HISTORY OF PRESENT ILLNESS: The patient is a pleasant 72-year-old woman with a history of coronary artery disease who presented with right leg swelling and erythema. The patient has a long history of coronary artery disease status post coronary bypass surgery x4 in 2011. The patient also subsequently had placement of an electronic ventricular pacemaker. The patient has a history of cerebral vascular disease, and undergone stent placement into her carotid artery. The patient has had a long difficulty with recurrent cellulitis and lower extremity infections. The patient previously had a knee replacement and this became infected. She had to have it removed. She has been on multiple antibiotics and followed in the wound care center. The patient presented with increasing erythema and weakness. The patient denies having any chest discomfort or palpitations. PAST MEDICAL HISTORY: 1. Coronary artery disease. 2. Hypertension. 3. Diabetes mellitus. 4. Hyperlipidemia. 5. Sleep apnea. PAST SURGICAL HISTORY: Knee surgery, shoulder surgery, coronary artery bypass surgery, back surgery, leg surgery, tonsillectomy, appendectomy, and cataracts. MEDICATIONS: See nursing list. ALLERGIES: C[place]ON[place], CODEINE, PENICILLIN, TORADOL, and SULFA. FAMILY HISTORY: SOCIAL HISTORY: Nonsmoker. REVIEW OF SYSTEMS: Noticeable for pain in her right leg. PHYSICAL EXAMINATION: GENERAL: Obese woman in no acute distress. VITAL SIGNS: Blood pressure is 157/70. NECK: Full. LUNGS: Clear to auscultation. HEART: Regular rate and rhythm, normal S1, S2 with a 1/6 systolic murmur. ABDOMEN: Distended. EXTREMITIES: Showed erythema in the right lower leg with a wound in the right foot. NEUROLOGIC: Nonfocal. VASCULAR: Radial pulses are 2+. LABORATORY RESULTS: White blood cell count 10.3, hemoglobin 11.2, hematocrit 34.2, platelets are 132. Sodium is 134, potassium 4.6, chloride 104, bicarbonate 19, BUN 25, creatinine is 1.07, glucose is 150, troponin is 0.2. Her EKG revealed her to have electronic ventricular pacemaker. IMPRESSION: 1. Cellulitis. 2. History of coronary artery bypass surgery. 3. History of pacemaker placement. 4. History of cerebral vascular disease. 5. Diabetes mellitus. 6. Hypertension. 7. Aortic stenosis. 8. Obesity. This patient presents with cellulitis. The patient is on IV antibiotics. Her echocardiogram revealed normal left ventricular systolic function. There were no obvious vegetations. Continue IV antibiotics. We will follow this patient with you through her hospitalization. BEATRIZ
[2017-09-27] MEDS: Lisinopril 20 MG TAB PO SCH (08:49)
[2017-09-27] MEDS: Enoxaparin Sodium 30 MG/0.3 ML SYRINGE SC SCH (08:50)
[2017-09-27 16:50] LABS: Vancomycin, Trough 23.6 ug/mL
--- NOTE | 2017-09-27 18:53 | PDOC.PN ---
- Subjective Encounter Start Date: 09/27/17 Encounter Start Time: 18:30 Subjective: f/u for recurrent RLE cellulitis with sepsis on current Rocephin -: Clindamycin and Vancomycin. Overall improved and less swelling in -: RLE. + diarrhea starting today. - Objective Resuscitation Status: Resuscitation Status FULL:Full Resuscitation MAR Reviewed: Yes Vital Signs & Weight: Vital Signs (12 hours) Temp Pulse Resp BP BP Pulse Ox 09/27/17 16:00 98.6 F 65 20 158/74 H 94 L 09/27/17 12:46 60 168/72 H 09/27/17 11:40 98.4 F 65 18 180/93 H 94 L 09/27/17 08:49 186/73 H 09/27/17 08:42 60 186/73 H 09/27/17 08:00 97.7 F 60 18 96 09/27/17 07:07 97.7 F 60 18 186/73 H 96 Weight Admit Weight 225 lb Weight 223 lb 9.6 oz I&O: 09/26/17 09/27/17 09/28/17 06:59 06:59 06:59 Intake Total 1238 2200 1950 Balance 1238 2200 1950 Result Diagrams: 09/27/17 05:26 09/27/17 05:26 Additional Labs: Accuchecks 09/27/17 09/27/17 09/27/17 16:21 12:07 05:47 POC Glucose 143 H 114 H 118 H 09/26/17 21:11 POC Glucose 143 H Microbiology 09/24/17 17:45 Urine Straight Catheter Urine Culture - Final NO GROWTH AT 48 HOURS 09/24/17 17:45 Nasal swab Influenza Types A,B Direct EIA - Final 09/24/17 16:21 Venous blood - Left Arm Blood Culture - Preliminary NO GROWTH AT 48 HOURS 09/24/17 16:20 Venous blood - Right Hand Blood Culture - Preliminary NO GROWTH AT 48 HOURS Laboratory Tests 09/24/17 09/25/17 09/27/17 16:19 05:12 16:03 WBC 18.0 H 10.3 Vancomycin Trough 23.6 Radiology Reviewed by me: Yes (2D echo - EF 55-60%, diast dysfxn) Phys Exam - Physical Examination Constitutional: NAD HEENT: PERRLA, oral pharynx no lesions Neck: no JVD, supple Respiratory: no wheezing, clear to auscultation bilateral Cardiovascular: RRR Gastrointestinal: soft, non-tender, no distention, positive bowel sounds RLE with light pink coloration of thigh and distal LE Musculoskeletal: pulses present, edema present Neurological: normal sensation, moves all 4 limbs Psychiatric: A&O x 3 Skin: normal turgor, cap refill <2 seconds Dx/Plan (1) Sepsis Code(s): A41.9 - SEPSIS, UNSPECIFIED ORGANISM Status: Acute Comment: Secondary to RLE cellulitis, resolved (2) Cellulitis of right leg Code(s): L03.115 - CELLULITIS OF RIGHT LOWER LIMB Status: Acute Comment: Recurrent cellulitis, improving with current Vancomycin, Rocephin and Clindamycin, continue IV abx another 24h then de-escalate coverage (3) Labile hypertension Code(s): I10 - ESSENTIAL (PRIMARY) HYPERTENSION Status: Chronic Comment: Continue current BP regimen, serial manual monitoring, add Clonidine 0.2mg BID (4) right ankle ulcer over achilles tendon Status: Chronic Comment: Local WCT, s/p skin graft placement (5) Morbid obesity with BMI of 40.0-44.9, adult Code(s): E66.01 - MORBID (SEVERE) OBESITY DUE TO EXCESS CALORIES; Z68.41 - BODY MASS INDEX (BMI) 40.0-44.9, ADULT Status: Chronic (6) PVD (peripheral vascular disease) Code(s): I73.9 - PERIPHERAL VASCULAR DISEASE, UNSPECIFIED Status: Chronic Comment: Continue ASA and Lipitor - Plan continue antibiotics, PT/OT, social scientist, out of bed/ambulate Stable overall -: Continue Rocephin, Vancomycin and Clindamycin another 24h -: de-escalate IV abx in 24h -: OOB ambulate -: WCT for local care RLE * Saline lock IVF * Likely home in 48h
[2017-09-27] MEDS: cloNIDine 0.2 MG TAB PO SCH (19:35)
[2017-09-27] MEDS: hydrALAZINE 20 MG/ML VIAL SLOW IVP PRN (20:52)
[2017-09-27] MEDS: Atorvastatin Calcium 20 MG TAB PO SCH (20:55)
[2017-09-27] MEDS: Insulin Detemir 100 UNITS/ML 25 UNITS in Pre-Filled Syringe 1 EACH SC SCH (20:55)
[2017-09-27] MEDS: cefTRIAXone\\ROCEPHIN 2 GM in Sodium Chloride 0.9% 100 ML IVPB SCH (23:41)
[2017-09-28] MEDS: Clindamycin/D5W 600 MG in Premix Bag 1 BAG IVPB SCH ×3 (01:27→18:45)
[2017-09-28] MEDS: Vancomycin HCl 1 GM in Premix Bag 1 BAG IVPB SCH ×2 (05:13→17:15)
[2017-09-28] MEDS: Levothyroxine Sodium 125 MCG TAB PO SCH (05:13)
[2017-09-28] MEDS: TROSPIUM 20 MG TABLET PO SCH ×2 (09:00→22:08)
[2017-09-28] MEDS: Triamterene/Hydrochlorothiazide 37.5 mg/25 mg Tablet PO SCH (09:01)
[2017-09-28] MEDS: Lisinopril 20 MG TAB PO SCH (09:01)
[2017-09-28] MEDS: Atenolol 25 MG TAB PO SCH ×2 (09:01→21:13)
[2017-09-28] MEDS: metFORMIN XR 500 MG TAB PO SCH ×2 (09:02→18:45)
[2017-09-28] MEDS: cloNIDine 0.2 MG TAB PO SCH ×2 (09:03→21:14)
[2017-09-28] MEDS: Gabapentin 300 MG CAP PO SCH ×3 (09:03→21:15)
[2017-09-28] MEDS: Escitalopram Oxalate 10 mg Tablet PO SCH (09:03)
[2017-09-28] MEDS: Aspirin 81 mg Enteric Coated Tablet PO SCH (09:03)
[2017-09-28] MEDS: Enoxaparin Sodium 30 MG/0.3 ML SYRINGE SC SCH (09:04)
[2017-09-28] MEDS: Famotidine 20 MG TAB PO SCH ×2 (09:04→21:14)
[2017-09-28] MEDS: Insulin Detemir 100 UNITS/ML 20 UNITS in Pre-Filled Syringe 1 EACH SC SCH (09:05)
--- NOTE | 2017-09-28 12:14 | PQF ---
CLINICAL DOCUMENTATION IMPROVEMENT CLARIFICATION FORM: ICD-10 Updated PLEASE DO AN ADDENDUM TO THE PROGRESS NOTE WITH ANY DOCUMENTATION UPDATES OR ADDITIONS AND CARRY THROUGH TO DC SUMMARY. THANK YOU. DATE: 09/28/17 ATTN: Dr. Beatty Please exercise your independent, professional judgment in responding to the clarification form. Clinical indicators are provided on the bottom of this form for your review Please check appropriate box(s): ____x___ I (concur) with the Wound Care findings as stated below. [ ] Pressure Ulcer: (Stage I: Erythema; Stage II: Partial thickness; Stage III : Full thickness; Stage IV: Necrosis to muscle/bone) [ ] Location: Stage (I to IV): (Left Right Bilateral N/A ) [ ] Location: Stage (I to IV): (Left Right Bilateral N/A ) [ ] No pressure ulcer diagnosis [ ] Deep tissue injury [ ] Other diagnosis [ ] Unable to determine In addition, please specify: Present on Admission (POA): [ x ] Yes [ ] No [ ] Unable to determine For continuity of documentation, please document condition throughout progress notes and discharge summary. Thank You. CLINICAL INDICATORS - SIGNS / SYMPTOMS / LABS WOUND CARE ASSESSMENT 09/25/2017: RIGHT HEEL PRESSURE ULCER STAGE III. RISKS: H&P: HX OF S/P SKIN GRAFTING OF THE R ACHILLES REGION OF THE RLE 08/2017. DM 2, HYPERTENSION, MORBID OBESITY. ADMITTED TO TELEMETRY UNIT. SEPSIS SECONDARILY TO RLE CELLULITIS. TREATMENT: CONSULT 09/25: WOUND CARE EVAL/ TREAT S/P SKIN GRAFT TO RLE OF 09/14 Pre-ulcer skin changes limited to persistent focal edema (Stage 1) Abrasion, blister, partial thickness skin loss involving epidermis and/or dermis (Stage 2) Full thickness skin loss involving damage or necrosis of SQ tissue. (Stage 3) Necrosis of soft tissue through to underlying muscle, tendon, or bone. (Stage 4) Purple or maroon discolored skin or blood filled blister Thank you, Luz (This form is maintained as a part of the permanent medical record) 2015 [employer]. All Rights Reserved Luz Amaya RN, BSN [email or web address] Office: [phone] [facility]
[2017-09-28] MEDS: HumaLOG 300 UNITS/3 ML VIAL SC PRN (13:14)
--- NOTE | 2017-09-28 18:49 | PDOC.PN ---
- Subjective Encounter Start Date: 09/28/17 Encounter Start Time: 18:30 Subjective: f/u RLE cellulitis on Clindamycin, Vancomycin and Rocephin. Overall feeling -: much better with more mobilization, less swelling and near resolution -: of redness. - Objective Resuscitation Status: Resuscitation Status FULL:Full Resuscitation MAR Reviewed: Yes Vital Signs & Weight: Vital Signs (12 hours) Temp Pulse Resp BP BP Pulse Ox 09/28/17 15:20 97.8 F 63 18 152/70 H 95 09/28/17 11:25 98.0 F 62 19 142/61 H 97 09/28/17 09:03 183/70 H 09/28/17 09:01 66 183/70 H 09/28/17 08:00 97.8 F 63 18 09/28/17 07:50 98.0 F 66 19 183/70 H 96 Weight Admit Weight 225 lb Weight 223 lb 9.6 oz I&O: 09/27/17 09/28/17 09/29/17 06:59 06:59 06:59 Intake Total 2200 2790 Balance 2200 2790 Result Diagrams: 09/27/17 05:26 09/27/17 05:26 Additional Labs: Accuchecks 09/28/17 09/28/17 09/28/17 17:17 10:37 05:19 POC Glucose 107 171 H 162 H 09/27/17 20:13 POC Glucose 144 H Phys Exam - Physical Examination Constitutional: NAD HEENT: PERRLA, oral pharynx no lesions Neck: no JVD, supple Respiratory: no wheezing, clear to auscultation bilateral Cardiovascular: RRR Gastrointestinal: soft, non-tender, no distention, positive bowel sounds RLE edema decreased, minimal erythema distally, wound dressing on ankle region Musculoskeletal: pulses present Neurological: normal sensation, moves all 4 limbs Psychiatric: A&O x 3 Skin: normal turgor, cap refill <2 seconds Dx/Plan (1) Sepsis Code(s): A41.9 - SEPSIS, UNSPECIFIED ORGANISM Status: Acute Comment: Secondary to RLE cellulitis, resolved (2) Cellulitis of right leg Code(s): L03.115 - CELLULITIS OF RIGHT LOWER LIMB Status: Acute Comment: Recurrent cellulitis, improving with current Vancomycin, Rocephin and Clindamycin, continue IV abx another 24h then de-escalate coverage, likely home on Keflex (3) Labile hypertension Code(s): I10 - ESSENTIAL (PRIMARY) HYPERTENSION Status: Chronic Comment: Continue current BP regimen, serial manual monitoring, add Clonidine 0.2mg BID (4) right ankle ulcer over achilles tendon Status: Chronic Comment: Local WCT, s/p skin graft placement (5) Morbid obesity with BMI of 40.0-44.9, adult Code(s): E66.01 - MORBID (SEVERE) OBESITY DUE TO EXCESS CALORIES; Z68.41 - BODY MASS INDEX (BMI) 40.0-44.9, ADULT Status: Chronic (6) PVD (peripheral vascular disease) Code(s): I73.9 - PERIPHERAL VASCULAR DISEASE, UNSPECIFIED Status: Chronic Comment: Continue ASA and Lipitor - Plan continue antibiotics, 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
[2017-09-28] MEDS: Atorvastatin Calcium 20 MG TAB PO SCH (21:14)
[2017-09-28] MEDS: Insulin Detemir 100 UNITS/ML 25 UNITS in Pre-Filled Syringe 1 EACH SC SCH (21:15)
[2017-09-29] MEDS: cefTRIAXone\\ROCEPHIN 2 GM in Sodium Chloride 0.9% 100 ML IVPB SCH
[2017-09-29] MEDS: Clindamycin/D5W 600 MG in Premix Bag 1 BAG IVPB SCH ×2 (02:03→09:46)
[2017-09-29] MEDS: Vancomycin HCl 750 MG in Sodium Chloride 0.9% 250 ML 250 ML IVPB SCH ×2 (05:50→16:01)
[2017-09-29] MEDS: Levothyroxine Sodium 125 MCG TAB PO SCH (05:51)
[2017-09-29 07:56] VITALS: TEMP 97.8
[2017-09-29] MEDS: Insulin Detemir 100 UNITS/ML 20 UNITS in Pre-Filled Syringe 1 EACH SC SCH (09:42)
[2017-09-29] MEDS: metFORMIN XR 500 MG TAB PO SCH ×2 (09:43→16:02)
[2017-09-29] MEDS: TROSPIUM 20 MG TABLET PO SCH (09:43)
[2017-09-29] MEDS: Famotidine 20 MG TAB PO SCH (09:43)
[2017-09-29] MEDS: Escitalopram Oxalate 10 mg Tablet PO SCH (09:44)
[2017-09-29] MEDS: Gabapentin 300 MG CAP PO SCH ×2 (09:44→14:08)
[2017-09-29] MEDS: cloNIDine 0.2 MG TAB PO SCH (09:44)
[2017-09-29] MEDS: Atenolol 25 MG TAB PO SCH (09:44)
[2017-09-29] MEDS: Aspirin 81 mg Enteric Coated Tablet PO SCH (09:44)
[2017-09-29] MEDS: Triamterene/Hydrochlorothiazide 37.5 mg/25 mg Tablet PO SCH (09:45)
[2017-09-29] MEDS: Enoxaparin Sodium 30 MG/0.3 ML SYRINGE SC SCH (09:45)
[2017-09-29] MEDS: Lisinopril 20 MG TAB PO SCH (09:45)
[2017-09-29] MEDS: HumaLOG 300 UNITS/3 ML VIAL SC PRN (11:24)
--- NOTE | 2017-09-29 13:40 | DIS ---
DATE OF ADMISSION: 09/24/2017 DATE OF DISCHARGE: 09/29/2017 DISCHARGE DIAGNOSES: 1. Sepsis secondarily to #2, resolved. 2. Recurrent cellulitis of the right lower extremity. 3. Hypertension, labile. 4. Right ankle ulcer over Achilles tendon, status post skin graft placement. 5. Morbid obesity. 6. Peripheral vascular disease. 7. Diabetes mellitus type 2, insulin requiring. CONSULTATIONS: Dr. Clayton with Orthopedic Surgery Service. Dr. Rizzo with Cardiology Service. PERTINENT LABORATORY DATA AND X-RAY FINDINGS: Creatinine ranged between 0.92-1.23 with estimated GFR ranging between 43-60, lactic acid level ranged between 2.2-3.5. Troponin I ranged between 0.138-0. 207. BNP 347. TSH 0.38. CBC showed white blood cell count ranging between 8.5-18, hemoglobin range d between 11.2-12.7. Blood cultures x2 from 09/24/2017 showed no growth at 48 hours. Influenza A an d B antigen on 09/24/2017 negative. Urine culture dated 09/24/2017 showed no growth at 48 hours. Po rtable chest x-ray dated 09/24/2017 showed no acute cardiopulmonary process. Four views of the right knee dated 09/24/2017 showed soft tissue edema consistent with cellulitis. A 2D transthoracic echoc ardiogram dated 09/25/2017 showed ejection fraction 55%-60%. Diastolic dysfunction noted. Technical ly limited exam. HOSPITAL COURSE: Patient was admitted after presenting with recurrent right lower extremity swelling , redness with associated findings consistent with sepsis due to cellulitis of the lower extremity. The patient was placed on broad spectrum IV antibiotic therapy to include vancomycin, clindamycin, an d Rocephin. Blood cultures were negative x2 as stated previously and patient was treated with genera l sepsis protocol including intravenous normal saline. The patient had rapid improvement in overall cellulitic process likely streptococcal species similar to what was isolated from her right foot absc ess. The patient was evaluated by Orthopedic Surgery Service with recommendations to continue antibi otic therapy and general supportive measures. The patient was also evaluated by the Cardiology Servi ce due to mild elevation in troponin, which was felt to be secondarily to sepsis and cellulitis. No specific evidence of endocarditis was noted with transthoracic echocardiogram evaluation. No specifi c adjustments to cardiac medications or regimen were recommended. The patient overall remained clini lisa stable and improving with antibiotic therapy. Current recommendations are to transition to Kef walt 500 mg b.i.d. indefinitely. On the day of discharge, I have examined the patient, reviewed disch arge instructions and followup plans with the patient who is agreeable for discharge on 09/29/2017. Overall, patient clinically stable and ready for discharge. DISCHARGE MEDICATIONS: 1. Keflex 500 mg 1 tab p.o. b.i.d. indefinitely. 2. Enteric coated aspirin 81 mg 1 tab p.o. daily. 3. Tenormin 75 mg p.o. b.i.d. 4. Vitamin D3 2000 units p.o. daily. 5. Lexapro 10 mg p.o. daily. 6. Gabapentin 600 mg p.o. t.i.d. 7. [place] 10/325 mg 1 tab p.o. q.8 hours p.r.n. 8. Glargine insulin 20 units subcutaneously daily and 25 units subcutaneously at bedtime. 9. Levothyroxine 125 mcg 1 tab p.o. daily. 10. Lisinopril 80 mg p.o. daily. 11. Metformin ER 1000 mg p.o. b.i.d. 12. Zocor 40 mg p.o. at bedtime. 13. Tolterodine tartrate 4 mg p.o. daily. 14. Triamterene/hydrochlorothiazide 37.5/25 mg 1 tab p.o. daily. FOLLOWUP: Patient will follow up with her primary care provider, Dr. Sachi Quinonez on 10/12/2017 at 10:00 a.m. Patient will also follow up with the outpatient Wound Care Clinic at [facility] and to call her office for appointment time. CONDITION ON DISCHARGE: Stable. ACTIVITY: Ad little. DIET: Heart healthy and ADA. CODE STATUS: FULL. DISPOSITION: Home 09/29/2017. Total time preparing and coordinating discharge is 36 minutes.
[2017-09-29 15:41] VITALS: BP 171/76
[2017-09-29] MEDS: cloNIDine 0.1 MG TAB PO PRN (16:04)
--- NOTE | 2017-10-02 20:23 | EKG ---
Test Reason : DIZZINESS Blood Pressure : / mmHG Vent. Rate : 078 BPM Atrial Rate : 078 BPM P-R Int : 136 ms QRS Dur : 138 ms QT Int : 438 ms P-R-T Axes : 080 031 166 degrees QTc Int : 499 ms Electronic ventricular pacemaker Confirmed by LOUIE AKBAR ([id number]), editor school photograph CHRIS LOBATO ([id number]) on 10/02/2017 8:23:21 PM Referred By: Confirmed By:LOUIE AKBAR
== END 2017-09-29 18:45 | disposition home or self-care (01) | DRG 871 ==
LOC: ERS 15:03 → 2NO 18:39 → SURG B 09-26 17:28
PROVIDERS: ADMIT Internal Medicine; ATTEND Internal Medicine
DX: A41.9 Sepsis, unspecified organism (principal); L89.613 Pressure ulcer of right heel, stage 3; N17.9 Acute kidney failure, unspecified; I24.8 Other forms of acute ischemic heart disease; L03.115 Cellulitis of right lower limb; L97.319 Non-pressure chronic ulcer of right ankle with unspecified severity; Z68.41 Body mass index [BMI] 40.0-44.9, adult; E11.22 Type 2 diabetes mellitus with diabetic chronic kidney disease; E11.51 Type 2 diabetes mellitus with diabetic peripheral angiopathy without gangrene; E66.01 Morbid (severe) obesity due to excess calories; I12.9 Hypertensive chronic kidney disease with stage 1 through stage 4 chronic kidney disease, or unspecified chronic kidney disease; N18.2 Chronic kidney disease, stage 2 (mild); I25.10 Atherosclerotic heart disease of native coronary artery without angina pectoris; E78.5 Hyperlipidemia, unspecified; E03.9 Hypothyroidism, unspecified; G47.33 Obstructive sleep apnea (adult) (pediatric); B95.5 Unspecified streptococcus as the cause of diseases classified elsewhere; Z88.5 Allergy status to narcotic agent; Z88.0 Allergy status to penicillin; Z88.2 Allergy status to sulfonamides; Z91.018 Allergy to other foods; Z79.4 Long term (current) use of insulin; Z79.899 Other long term (current) drug therapy; Z95.0 Presence of cardiac pacemaker; Z95.1 Presence of aortocoronary bypass graft
CPT/HCPCS: 36415; 36416; 51701; 71045; 80048; 80053; 80202; 81003; 81015; 82550; 82553; 83605; 83690; 83735; 83880; 84443; 84484; 85007; 85025; 85027; 85379; 87040; 87086; 87804; 93005; 93306; 96361; 96365; 96367; A4353; J0360; J0696; J1650; J1815; J3370; J3490; J7050

== ENCOUNTER 2017-09-30 10:30 | Outpatient (CLI) | payer MEDICARE ==
--- NOTE | 2017-09-30 12:13 | PRG ---
DATE OF SERVICE: 09/30/2017 SUBJECTIVE: Ms. Sachi Negron is a very pleasant 72-year-old who presents to the Wound Center for evaluation of 2 ulcerations of the right foot. One ulceration is located over the right heel and ano ther ulceration is located over the right Achilles tendon. The patient is presently undergoing treat ment with Dermagraft. Since the patient's last visit to the Wound Center, Ms. Negron was admitted to [facility] on 09/24/2017, for recurrent cellulitis of the right lower extremit y. Ms. Negron was discharged from [facility] on 09/29/2017. The patient was a dmitted to the hospital with sepsis secondary to right lower extremity cellulitis. Ms. Nergon has no complaints today. She denies any fever or chills. OBJECTIVE: VITAL SIGNS: Temperature 97.3, pulse 63, respirations 18, blood pressure 137/63. EXTREMITIES: The ulceration over the right heel measures approximately 2.8 x 2.9 cm. The ulceration over the right Achilles tendon measures approximately 1.8 x 1.7 cm. Granulation tissue is present w ithin the margins of each wound. Necrotic and nonviable tissue present within the margins of each wo und was debrided with an excisional full-thickness debridement with the use of scissors and a curet. No purulent drainage is associated with either wound. No erythema of the skin surrounding either wo und is present. No maceration of the skin of the periwound of either wound is noted. No significant edema of the right foot is present on exam today. Dermagraft was divided into 2 pieces and applied to the wound bed of each ulceration, followed by Adaptic touch, a gauze bolster, 4 x 4's, Webril, and 3M Coban 2-layer compression system. ASSESSMENT AND PLAN: 1. Ulcerations of right foot as described above. Dermagraft was applied to the wound bed of each ul ceration today. I will see Ms. Negron again in one week. At this time, consideration will be given t o another placement of Dermagraft. 2. Hypertension. 3. Diabetes mellitus. The patient's Accu-Chek in clinic today is 134. The patient has been reminde d that for optimal wound healing, her blood glucoses should remain below 150. 4. Hypothyroidism. 5. Coronary artery disease. 6. Osteoarthritis. 7. Hepatitis A. 8. Obstructive sleep apnea. 9. Peripheral vascular disease. 10. Nephrolithiasis.
== END 2017-09-30 10:31 | disposition home or self-care (01) ==
LOC: WCC 10:30
PROVIDERS: ATTEND Family Medicine
DX: E11.621 Type 2 diabetes mellitus with foot ulcer (principal); L97.419 Non-pressure chronic ulcer of right heel and midfoot with unspecified severity; L97.819 Non-pressure chronic ulcer of other part of right lower leg with unspecified severity; I10 Essential (primary) hypertension; E03.9 Hypothyroidism, unspecified; I25.10 Atherosclerotic heart disease of native coronary artery without angina pectoris; M19.90 Unspecified osteoarthritis, unspecified site; B15.9 Hepatitis A without hepatic coma; G47.33 Obstructive sleep apnea (adult) (pediatric); E11.51 Type 2 diabetes mellitus with diabetic peripheral angiopathy without gangrene; I73.9 Peripheral vascular disease, unspecified; N20.0 Calculus of kidney
CPT/HCPCS: 15275; 36416

== ENCOUNTER 2017-10-07 07:56 | Outpatient (CLI) | payer MEDICARE ==
[2017-10-07] MEDS ORDERED: Sodium Chloride 0.9% 15 ML NEB ONE (09:00)
[2017-10-07] MEDS ORDERED: Lidocaine 2% Jelly 5 ML TUBE ONE (09:00)
--- NOTE | 2017-10-07 09:27 | PRG ---
DATE OF SERVICE: 10/07/2017 HISTORY: Ms. Sachi Negron is a very pleasant 72-year-old who presents to the Wound Center for evaluation of 2 ulcerations of the right foot. One ulceration is located over the right heel, and another ulceration is located over the right Achilles tendon. The patient is currently undergoing treatment with Dermagraft. Ms. Negron has no complaints today. She denies any fever or chills. PHYSICAL EXAMINATION: VITAL SIGNS: Temperature 97.7, pulse 60, respirations 16, blood pressure 200/ 81. Accu-Chek 197. EXTREMITIES: The ulceration over the right heel measures approximately 2.8 x 2.2 cm. The dimensions of the wound at the time of the patient's visit on 09/30 were approximately 2.8 x 2.9 cm. The ulceration over the right Achilles tendon measures approximately 1.2 x 1.4 cm. The dimensions of the wound at the time of the patient's visit on 09/30/2017 were approximately 1.8 x 1.7 cm. Granulation tissue is present within the margins of each wound. Necrotic and nonviable tissue present within the margins of each wound was debrided with an excisional full-thickness debridement with the use of a curette. No purulent drainage is associated with either wound. No cellulitis of the right foot is appreciated. No maceration of the skin of the periwound of either wound is noted. No significant edema of the right foot is present on exam today. Dermagraft was divided into 2 pieces and applied to the wound bed of each ulceration followed by Adaptic touch, a gauze bolster, 4 x 4s, Webril, and the [employer] Coban 2-layer compression system. ASSESSMENT AND PLAN: 1. Ulcerations of right foot as described above. Dermagraft was applied to the wound bed of each ulceration today. I will see Ms. Negron again in one week. At this time, consideration will be given to another placement of Dermagraft. For green drainage associated with the wound, the patient has been given a prescription for ciprofloxacin 500 mg #20 one p.o. b.i.d. x10 days. 2. Hypertension. 3. Diabetes mellitus. The patient's Accu-Chek in clinic today is 197. The patient has been reminded that for optimal wound healing, her blood glucoses should remain below 150. 4. Hypothyroidism. 5. Coronary artery disease. 6. Osteoarthritis. 7. Hepatitis A. 8. Obstructive sleep apnea. 9. Peripheral vascular disease. 10. Nephrolithiasis. MTDD
== END 2017-10-07 07:57 | disposition home or self-care (01) ==
LOC: WCC 07:56
PROVIDERS: ATTEND Family Medicine
DX: E11.621 Type 2 diabetes mellitus with foot ulcer (principal); L97.519 Non-pressure chronic ulcer of other part of right foot with unspecified severity; I25.10 Atherosclerotic heart disease of native coronary artery without angina pectoris; E03.9 Hypothyroidism, unspecified; I10 Essential (primary) hypertension; M19.90 Unspecified osteoarthritis, unspecified site; G47.33 Obstructive sleep apnea (adult) (pediatric); I73.9 Peripheral vascular disease, unspecified; B15.9 Hepatitis A without hepatic coma; N20.0 Calculus of kidney
CPT/HCPCS: 15275; 36416; A4218

== ENCOUNTER 2017-10-14 08:19 | Outpatient (CLI) | payer MEDICARE ==
[2017-10-14] MEDS ORDERED: Lidocaine 2% Jelly 5 ML TUBE ONE (09:00)
[2017-10-14] MEDS ORDERED: Sodium Chloride 0.9% 15 ML NEB ONE (09:00)
--- NOTE | 2017-10-14 11:19 | PRG ---
DATE OF SERVICE: 10/14/2017 HISTORY: Ms. Sachi Negron is a very pleasant 72-year-old who presents to the Wound Center for evalu ation of 2 ulcerations of the right foot. One ulceration is located over the right heel and another ulceration is located over the right Achilles tendon. The patient is presently undergoing treatment with Dermagraft. The patient has no complaints today. She denies any fever or chills. PHYSICAL EXAMINATION: VITAL SIGNS: Temperature 97.6, pulse 58, respirations 18, blood pressure 124/56. Accu-Chek 184. EXTREMITIES: The ulceration over the right heel measures approximately 2.2 x 2.8 cm. The ulceration over the right Achilles tendon measures approximately 0.7 x 1.0 cm. Granulation tissue is present w ithin the margins of each wound. Necrotic and nonviable tissue present within the margins of each wo und was debrided with an excisional full-thickness debridement with the use of a curette. No purulen t drainage is associated with either wound. No cellulitis of the right foot is appreciated. No mace ration of the skin of the periwound of either wound is noted. No significant edema of the right foot is present on exam today. Dermagraft was divided into 2 pieces and applied to the wound bed of each ulceration followed by Adaptic touch, a gauze bolster, 4 x 4's, Webril, and 3M Coban 2 layer kristen aruna system. ASSESSMENT AND PLAN: 1. Ulcerations of right foot as described above. Dermagraft was applied to the wound bed of each ul cerations today. I will see Ms. Negron again in one week. At this time, consideration will be given to another placement of Dermagraft. 2. Hypertension. 3. Diabetes mellitus. The patient's Accu-Chek in clinic today is 184. The patient has been reminde d that for optimal wound healing, her blood glucoses should remain below 150. 4. Hypothyroidism. 5. Coronary artery disease. 6. Osteoarthritis. 7. Hepatitis A. 8. Obstructive sleep apnea. 9. Peripheral vascular disease. 10. Nephrolithiasis.
== END 2017-10-14 08:20 | disposition home or self-care (01) ==
LOC: WCC 08:19
PROVIDERS: ATTEND Family Medicine
DX: E11.621 Type 2 diabetes mellitus with foot ulcer (principal); L97.519 Non-pressure chronic ulcer of other part of right foot with unspecified severity; I10 Essential (primary) hypertension; E03.9 Hypothyroidism, unspecified; I25.10 Atherosclerotic heart disease of native coronary artery without angina pectoris; M19.90 Unspecified osteoarthritis, unspecified site; G47.33 Obstructive sleep apnea (adult) (pediatric); B15.9 Hepatitis A without hepatic coma; I73.9 Peripheral vascular disease, unspecified; N20.0 Calculus of kidney
CPT/HCPCS: A4218; Q4106-KX-JC

== ENCOUNTER 2017-10-21 08:07 | Outpatient (CLI) | payer MEDICARE ==
--- NOTE | 2017-10-21 09:38 | PRG ---
DATE OF SERVICE: 10/21/2017 HISTORY: Ms. Sachi Negron is a very pleasant 72-year-old who presents to the Wound Center for evalu ation of 2 ulcerations of the right foot. One ulceration is located over the right heel and another ulceration is located over the right Achilles tendon. Ms. Negron is currently undergoing treatment wi th Dermagraft. The patient has no complaints today. She denies any fever or chills. PHYSICAL EXAMINATION: VITAL SIGNS: Temperature 97.8, pulse 60, respirations 16, blood pressure 138/65. Accu-Chek 179. EXTREMITIES: The ulceration over the right heel measures approximately 1.9 x 2.0 cm. The ulceration over the right Achilles tendon measures approximately 0.4 x 0.3 cm. Granulation tissue is present w ithin the margins of each wound. Necrotic and nonviable tissue present within the margins of each wo und was debrided with an excisional full-thickness debridement with the use of a curette and scissors . No purulent drainage is associated with either wound. No cellulitis of the right foot is apprecia teresa. No maceration of the skin of the periwound of either wound is noted. A dorsalis pedis pulse is easily palpable on the right. No significant edema of the right foot is present on exam today. Nura magraft was divided into 2 pieces and applied to the wound bed of each ulceration followed by Adaptic touch, a gauze bolster, 4 x 4's, Webril, and the 3M Coban 2 layer compression system. ASSESSMENT AND PLAN: 1. Ulcerations of right foot as described above. Dermagraft was applied to the wound bed of each ul ceration today. I will see Ms. Negron again in one week. At this time, consideration will be given t o another placement of Dermagraft. 2. Hypertension. 3. Diabetes mellitus. The patient's Accu-Chek in clinic today is 179. The patient has been reminde d that for optimal wound healing, her blood glucoses should remain below 150. 4. Hypothyroidism. 5. Coronary artery disease. 6. Osteoarthritis. 7. Hepatitis A. 8. Obstructive sleep apnea. 9. Peripheral vascular disease. 10. Nephrolithiasis.
== END 2017-10-21 08:08 | disposition home or self-care (01) ==
LOC: WCC 08:07
PROVIDERS: ATTEND Family Medicine
DX: E11.621 Type 2 diabetes mellitus with foot ulcer (principal); L97.419 Non-pressure chronic ulcer of right heel and midfoot with unspecified severity; E03.9 Hypothyroidism, unspecified; I25.10 Atherosclerotic heart disease of native coronary artery without angina pectoris; M19.90 Unspecified osteoarthritis, unspecified site; B15.9 Hepatitis A without hepatic coma; G47.33 Obstructive sleep apnea (adult) (pediatric); I73.9 Peripheral vascular disease, unspecified; N20.0 Calculus of kidney; I10 Essential (primary) hypertension
CPT/HCPCS: Q4106-KX-JC

== ENCOUNTER 2017-10-28 08:05 | Outpatient (CLI) | payer MEDICARE ==
[~2017-10-28 08:05] MED LIST: Lidocaine 2% Jelly 5 ML TUBE ONE; Sodium Chloride 0.9% 15 ML NEB ONE
--- NOTE | 2017-10-28 09:25 | PRG ---
DATE OF SERVICE: 10/28/2017 HISTORY: Ms. Sachi Negron is a very pleasant 72-year-old who presents to the Wound Center for evalu ation of 2 ulcerations of the right foot. One ulceration is located over the right heel and another ulceration is located over the right Achilles tendon. The patient is presently undergoing treatment with Dermagraft. Ms. Negron has no complaints today. She denies any fever or chills. PHYSICAL EXAMINATION: VITAL SIGNS: Temperature 97.9, pulse 61, respirations 18, blood pressure 168/78. Accu-Chek 184. EXTREMITIES: The ulceration over the right Achilles tendon has healed completely. The ulceration ov er the right heel measures approximately 2.0 x 2.2 cm. Granulation tissue is present within the woun d margins. Necrotic and nonviable tissue present within the wound margins was debrided with an excis ional full-thickness debridement with the use of a curette and scissors. No purulent drainage is ass ociated with the wound. No cellulitis of the right foot is present. No maceration of the skin of th e periwound is noted. No significant edema of the right foot is present on exam today. Dermagraft w as applied to the wound bed of the right heel ulceration followed by Adaptic touch, a gauze bolster, 4 x 4's, Webril, and the [employer] Coban 2 layer compression system. ASSESSMENT AND PLAN: 1. Ulcerations of right foot as described above. As stated above, the ulceration over the right Ach illes tendon has healed completely. Dermagraft was applied to the wound bed of the right heel ulcera tion today. I will see Ms. Negron again in one week. At this time, consideration will be given to an other placement of Dermagraft. 2. Hypertension. 3. Diabetes mellitus. The patient's Accu-Chek in clinic today is 184. The patient has been reminde d that for optimal wound healing, her blood glucoses should remain below 150. 4. Hypothyroidism. 5. Coronary artery disease. 6. Osteoarthritis. 7. Hepatitis A. 8. Obstructive sleep apnea. 9. Peripheral vascular disease. 10. Nephrolithiasis.
[2017-10-28] MEDS ORDERED: Sodium Chloride 0.9% 15 ML NEB ONE (15:28)
== END 2017-10-28 08:06 | disposition home or self-care (01) ==
LOC: WCC 08:05
PROVIDERS: ATTEND Family Medicine
DX: E11.621 Type 2 diabetes mellitus with foot ulcer (principal); L97.519 Non-pressure chronic ulcer of other part of right foot with unspecified severity; I10 Essential (primary) hypertension; E03.9 Hypothyroidism, unspecified; I25.10 Atherosclerotic heart disease of native coronary artery without angina pectoris; N20.0 Calculus of kidney; I73.9 Peripheral vascular disease, unspecified; G47.33 Obstructive sleep apnea (adult) (pediatric); M19.90 Unspecified osteoarthritis, unspecified site; B15.9 Hepatitis A without hepatic coma
CPT/HCPCS: 15275; 97139; Q4106; A4218

== ENCOUNTER 2017-11-11 08:03 | Outpatient (CLI) | payer MEDICARE ==
--- NOTE | 2017-11-11 11:33 | PRG ---
DATE OF SERVICE: 11/11/2017 HISTORY: Ms. Sachi Negron is a very pleasant 72-year-old who presents to the Wound Center for ev aluation of 2 ulcerations of the right foot. One ulceration is located over the right heel and anoth er ulceration is located over the right Achilles tendon. The patient is currently undergoing treatme nt with Dermagraft. The patient has no complaints today. She denies any fever or chills. PHYSICAL EXAMINATION: VITAL SIGNS: Temperature 97.8, pulse 60, respirations 18, blood pressure 184/77. Accu-Chek 173. EXTREMITIES: The ulceration over the right Achilles tendon has healed completely and remains healed. The ulceration over the right heel measures approximately 1.9 x 2.1 cm. Granulation tissue is pres ent within the wound margins. Necrotic and nonviable tissue present within the wound margins was sejal rided with an excisional full-thickness debridement with the use of a curette and scissors. No purul ent drainage is associated with the wound. No cellulitis of the right foot is present. No maceratio n of the skin of the periwound is noted. No significant edema of the right foot is present on exam t di. Dermagraft was applied to the wound bed of the right heel ulceration followed by Adaptic touch , a gauze bolster, 4 x 4's, Webril, and 3m Coban 2 layer compression system. ASSESSMENT AND PLAN: 1. Ulceration of right foot as described above. As stated above, the ulceration over the right Achi lles tendon has healed completely and remains healed. Dermagraft was applied to the wound bed of the right heel ulceration today. I will see again in one week. At this time, consideration will be given to another placement of Dermagraft. 2. Hypertension. 3. Diabetes mellitus. The patient's Accu-Chek in clinic today is 173. The patient has been reminde d that for optimal wound healing, her blood glucoses should remain below 150. 4. Hypothyroidism. 5. Coronary artery disease. 6. Osteoarthritis. 7. Hepatitis A. 8. Obstructive sleep apnea. 9. Peripheral vascular disease. 10. Nephrolithiasis.
== END 2017-11-11 08:04 | disposition home or self-care (01) ==
LOC: WCC 08:03
PROVIDERS: ATTEND Family Medicine
DX: E11.621 Type 2 diabetes mellitus with foot ulcer (principal); L97.519 Non-pressure chronic ulcer of other part of right foot with unspecified severity; I10 Essential (primary) hypertension; E03.9 Hypothyroidism, unspecified; I25.10 Atherosclerotic heart disease of native coronary artery without angina pectoris; M19.90 Unspecified osteoarthritis, unspecified site; B15.9 Hepatitis A without hepatic coma; G47.33 Obstructive sleep apnea (adult) (pediatric); I73.9 Peripheral vascular disease, unspecified; N20.0 Calculus of kidney
CPT/HCPCS: 15275

== ENCOUNTER 2017-11-18 07:52 | Outpatient (CLI) | payer MEDICARE ==
--- NOTE | 2017-11-18 09:17 | PRG ---
DATE OF SERVICE: 11/18/2017 HISTORY: Ms. Sachi Negron is a very pleasant 72-year-old who presents [facility] for evalu ation of 2 ulcerations of the right foot. One ulceration is located over the right heel and another ulceration is located over the right Achilles tendon. The patient is presently undergoing treatment with Dermagraft. Ms. Negron has no complaints today. She denies any fever or chills. PHYSICAL EXAMINATION: VITAL SIGNS: Temperature 97.6, pulse 62, respirations 18, blood pressure 176/72. Accu-Chek 200. EXTREMITIES: The ulceration over the right Achilles tendon has healed completely and remains healed. The ulceration over the right heel measures approximately 1.9 x 2.0 cm. The dimensions of the woun d at the time of the patient's visit on 11/11/2017 were approximately 1.9 x 2.1 cm. Granulation tiss ue is present within the wound margins. Necrotic and nonviable tissue present within the wound trisha ns was debrided with an excisional full-thickness debridement with the use of a curette and scissors. No purulent drainage is associated with the wound. No cellulitis of the right foot is appreciated. No maceration of the skin of the periwound is noted. No significant edema of the right foot is pre sent on exam today. Dermagraft was applied to the wound bed of the right heel ulceration followed by Adaptic touch, a gauze bolster, 4 x 4's, Webril, and the 3M Coban 2 layer compression system. ASSESSMENT AND PLAN: 1. Ulceration of right foot as described above. The ulceration over the right Achilles tendon has h ealed completely and remains healed. Dermagraft was applied to the wound bed of the right heel ulcer ation today. Arrangements will be made for dressing changes of Mepitel, Webril, and the 3M Coban 2 l carlos compression system on a weekly basis with the assistance of Home Health beginning one week from today. I will see Ms. Negron again in four weeks. 2. Hypertension. 3. Diabetes mellitus. The patient's Accu-Chek in clinic today is 200. The patient has been reminde d that for optimal wound healing, her blood glucoses should remain below 150. 4. Hypothyroidism. 5. Coronary artery disease. 6. Osteoarthritis. 7. Hepatitis A. 8. Obstructive sleep apnea. 9. Peripheral vascular disease. 10. Nephrolithiasis.
[2017-11-18] MEDS ORDERED: Sodium Chloride 0.9% 15 ML NEB ONE (21:20)
== END 2017-11-18 07:53 | disposition home or self-care (01) ==
LOC: WCC 07:52
PROVIDERS: ATTEND Family Medicine
DX: E11.621 Type 2 diabetes mellitus with foot ulcer (principal); L97.419 Non-pressure chronic ulcer of right heel and midfoot with unspecified severity; E03.9 Hypothyroidism, unspecified; I25.10 Atherosclerotic heart disease of native coronary artery without angina pectoris; M19.90 Unspecified osteoarthritis, unspecified site; G47.33 Obstructive sleep apnea (adult) (pediatric); I73.9 Peripheral vascular disease, unspecified; N20.0 Calculus of kidney; I10 Essential (primary) hypertension; B15.9 Hepatitis A without hepatic coma
CPT/HCPCS: 15275; 97139; Q4106; A4218

== ENCOUNTER 2018-01-05 09:54 | Outpatient (CLI) | payer MEDICARE ==
--- NOTE | 2018-01-05 11:41 | PRG ---
DATE OF SERVICE: 01/05/2018 HISTORY: Ms. Sachi Negron is a very pleasant 72-year-old who presents to the [facility] for ev aluation of an ulceration of the right heel. The patient has completed a course of treatment with De rmagraft for her right heel ulceration. The patient has no complaints today. She denies any fever o r chills. The patient is presently receiving dressing changes of Adaptic touch, Webril, and 3M Coban 2 layer compression system on a weekly basis with the assistance of Home Health for her right heel u lceration. PHYSICAL EXAMINATION: VITAL SIGNS: Temperature 98.0, pulse 68, respirations 22, blood pressure 177/73. EXTREMITIES: The ulceration over the right heel measures approximately 1.0 x 1.3 cm. The dimensions of the wound at the time of the patient's visit on 11/18/2017 were approximately 1.9 x 2.0 cm. Gran ulation tissue is present within the wound margins. Necrotic and nonviable tissue present within the wound margins was debrided with an excisional full-thickness debridement with the use of a curette. No purulent drainage is associated with the wound. No cellulitis of the right foot is appreciated. No maceration of the skin of the periwound is noted. A dorsalis pedis pulse is easily palpable on t he right. No significant edema of the right foot is present on exam today. MatriStem sheet 3 x 3.5 cm was applied to the wound bed of the right heel ulceration followed by Adaptic touch, a bolster of saline-moistened gauze, 4 x 4's, Webril, and 3M Coban 2 layer compression system. ASSESSMENT AND PLAN: 1. Ulceration of right foot as described above. MatriStem sheet was applied to the wound bed of the right heel ulceration today. Arrangements will be made for a dressing change of Adaptic touch, Webr il, and 3M Coban 2 layer compression system in 1 week with the assistance of Home Health. I will see Ms. Negron again in 2 weeks. 2. Hypertension. 3. Diabetes mellitus. Accu-Cheks will be obtained at the time of the patient's clinic visits. The patient has been reminded that for optimal wound healing, her blood glucoses should remain below 150. 4. Hypothyroidism. 5. Coronary artery disease. 6. Osteoarthritis. 7. Hepatitis A. 8. Obstructive sleep apnea. 9. Peripheral vascular disease. 10. Nephrolithiasis.
== END 2018-01-05 09:55 | disposition home or self-care (01) ==
LOC: WCC 09:54
PROVIDERS: ATTEND Family Medicine
DX: E11.621 Type 2 diabetes mellitus with foot ulcer (principal); L97.419 Non-pressure chronic ulcer of right heel and midfoot with unspecified severity; E03.9 Hypothyroidism, unspecified; I25.10 Atherosclerotic heart disease of native coronary artery without angina pectoris; M19.90 Unspecified osteoarthritis, unspecified site; G47.33 Obstructive sleep apnea (adult) (pediatric); I73.9 Peripheral vascular disease, unspecified; N20.0 Calculus of kidney; I10 Essential (primary) hypertension; B15.9 Hepatitis A without hepatic coma
CPT/HCPCS: C5275

== ENCOUNTER → 2018-01-27 | Outpatient (CLI) | payer MEDICARE ==
[~2018-01-27] MED LIST changes: -Lidocaine 2% Jelly 5 ML TUBE ONE
--- NOTE | 2018-01-27 09:04 | PRG ---
DATE OF SERVICE: 01/27/2018 HISTORY: Ms. Sachi Negron is a very pleasant 72-year-old who presents to the [facility] Center for ev aluation of an ulceration of the right heel. The patient has completed a course of treatment with De rmagraft for her right heel ulceration. Currently, the patient is receiving treatment with MatriStem sheet. Ms. Negron has no complaints today. She denies any fever or chills. The patient is currentl y receiving dressing changes of Adaptic Touch, Webril, and 3M Coban 2 layer compression system on a w eekly basis with the assistance of Home Health for her right heel ulceration. PHYSICAL EXAMINATION: VITAL SIGNS: Temperature 97.6, pulse 63, respirations 23, blood pressure 176/73. EXTREMITIES: The ulceration over the right heel measures approximately 1.4 x 1.1 cm. The dimensions of the wound at the time of the patient's visit on 01/05/2018 were approximately 1.0 x 1.3 cm. Gran ulation tissue is present within the wound margins. Necrotic and nonviable tissue present within the wound margins was debrided with an excisional full-thickness debridement with the use of a curette. No purulent drainage is associated with the wound. No cellulitis of the right foot is appreciated. No maceration of the skin of the periwound is noted. No significant edema of the right foot is pres ent on exam today. MatriStem sheet 3 x 3.5 cm was applied to the wound bed of the right heel ulcerat ion followed by Adaptic Touch, a bolster of saline-moistened gauze, 4 x 4's, Webril, and 3M Coban 2 l carlos compression system. ASSESSMENT AND PLAN: 1. Ulceration of right foot as described above. MatriStem sheet was applied to the wound bed of the right heel ulceration today. Arrangements will be made for a dressing change of Adaptic Touch, Webr il, and 3M Coban 2 layer compression system in 1 week and on a weekly basis thereafter with the stanley phillip of Home Health. Orders will be transmitted to Home Health for the preceding dressing changes t o be continued until the wound has healed completely. 2. Hypertension. 3. Diabetes mellitus. Accu-Cheks will be obtained at the time of the patient's clinic visits. The patient has been reminded that for optimal wound healing, her blood glucoses should remain below 150. 4. Hypothyroidism. 5. Coronary artery disease. 6. Osteoarthritis. 7. Hepatitis A. 8. Obstructive sleep apnea. 9. Peripheral vascular disease. 10. Nephrolithiasis.
== END ==
LOC: WCC 10:20
PROVIDERS: ATTEND Family Medicine
DX: E11.621 Type 2 diabetes mellitus with foot ulcer (principal); L97.419 Non-pressure chronic ulcer of right heel and midfoot with unspecified severity; I10 Essential (primary) hypertension; E03.9 Hypothyroidism, unspecified; I25.10 Atherosclerotic heart disease of native coronary artery without angina pectoris; M19.90 Unspecified osteoarthritis, unspecified site; B15.9 Hepatitis A without hepatic coma; G47.33 Obstructive sleep apnea (adult) (pediatric); E11.51 Type 2 diabetes mellitus with diabetic peripheral angiopathy without gangrene; N20.0 Calculus of kidney
CPT/HCPCS: 97139; C5275; Q4166; A4218

== ENCOUNTER 2018-02-06 12:16 | Observation (INO) | payer MEDICARE ==
[2018-02-06 13:12] LABS: #Eosinphils 0.2 thou/uL (0.0-0.7); #Lymphocytes 1.6 thou/uL (1.20-3.40); #Monocytes 0.8 thou/uL (0.11-0.59); #Neutrophils 4.6 thou/uL (1.40-6.50); %Basophils 0.4 % (0.0-1.0); %Eosinophils 3.2 % (0.0-10.0); %Lymphocytes 22.6 % (21.0-51.0); %Monocytes 10.5 % (0.0-10.0); %Neutrophils 63.4 % (42.0-75.0); Hemoglobin 10.8 g/dL (12.0-16.0); Mean Corpuscular HGB CONC 34.6 g/dL (32.0-36.0); Mean Corpuscular Hemoglobin 31.5 pg (27.0-31.0); Mean Platelet Volume 7.6 fL (7.4-10.4); Platelet Count 128 thou/uL (130-400); RBC Distribution Width 13.2 % (11.5-14.5); Red Blood Cell (RBC) Count 3.44 mill/uL (4.20-5.40); White Blood Cell (WBC) Count 7.3 thou/uL (4.8-10.8)
[2018-02-06 13:33] LABS: ALT (SGPT) 20 U/L (8-55); AST (SGOT) 18 U/L (5-34); Albumin 3.8 g/dL (3.4-4.8); Alkaline Phosphatase 69 U/L (40-150); Anion Gap 16 mmol/L (10-20); BUN (Urea Nitrogen) 46 mg/dL (9.8-20.1); Bilirubin, Total 0.4 mg/dL (0.2-1.2); Calc. Creatinine Clearance 0 mL/min (70-130); Calcium 9.3 mg/dL (7.8-10.44); Carbon Dioxide 20 mmol/L (23-31); Chloride 105 mmol/L (98-107); Estimated GFR-MDRD 36; Globulin 2.7 g/dL (2.4-3.5); Glucose 210 mg/dL (83-110); Potassium 5.2 mmol/L (3.5-5.1); Protein, Total 6.5 g/dL (6.0-8.3); Sodium 136 mmol/L (136-145)
[2018-02-06 13:50] LABS: Bilirubin Negative (Negative); Blood, Urine Negative (Negative); Clarity CLEAR (Clear); Glucose, Urine (Dipstick) Negative (Negative); Leukocyte Small (Negative); Nitrite Negative (Negative); Protein, Urine (Dipstick) Negative (Neg-Trace); Specific Gravity, Urine 1.018 (1.002-1.036); Urobilinogen 0.2 mg/dL (0.2-1.0); pH, Urine 5.5 (5.0-9.0)
[2018-02-06 13:53] LABS: CKMB 1.1 ng/mL (0-6.6); Troponin I Less than 0.010 ng/mL (< 0.028)
[2018-02-06 13:54] LABS: Bacteria/HPF None Seen HPF (None Seen); Hyaline Casts/LPF 0-3 HYALINE CAST LPF (0-3 Hyaline); Pathc Cast-AUWi Flag 0.29 (0-2.49); RBC/HPF 0-3 HPF (0-3); Squamous Epithelial 0-3 HPF (0-3); Yeast-AUWi Flag 17.8 (0-25.0)
[2018-02-06] MEDS ORDERED: cefTRIAXone\\ROCEPHIN 1 GM VIAL ONE (15:28)
[2018-02-06] MEDS ORDERED: HYDROcodone/Acetaminophen 10/325 mg Tablet PO PRN (17:02)
[2018-02-06 17:21] VITALS: BMI 43.7
[2018-02-06] MEDS ORDERED: Gabapentin 300 MG CAP PO SCH (21:00)
[2018-02-06] MEDS ORDERED: Insulin Glargine 30 UNITS in Pre-Filled Syringe 1 EACH SC SCH (21:00)
[2018-02-06] MEDS ORDERED: Simvastatin 40 MG TAB PO SCH (21:00)
[2018-02-06] MEDS ORDERED: Atenolol 25 MG TAB PO SCH (21:00)
[2018-02-06] MEDS: Cephalexin 250 MG CAP PO SCH (21:36)
[2018-02-06] MEDS: cloNIDine 0.3 MG TAB PO SCH (21:37)
[2018-02-06] MEDS: TROSPIUM 20 MG TABLET PO SCH (21:37)
[2018-02-06] MEDS: Gabapentin 300 MG CAP PO SCH (21:42)
[2018-02-07] MEDS: Gabapentin 300 MG CAP PO SCH ×2 (05:26→11:23)
[2018-02-07] MEDS ORDERED: Levothyroxine Sodium 125 MCG TAB PO SCH ×2 (06:00→09:00)
[2018-02-07] MEDS ORDERED: metFORMIN 500 MG TAB PO SCH (08:00)
[2018-02-07 08:12] LABS: #Eosinphils 0.2 thou/uL (0.0-0.7); #Monocytes 0.7 thou/uL (0.11-0.59); #Neutrophils 5.6 thou/uL (1.40-6.50); %Basophils 0.4 % (0.0-1.0); %Eosinophils 3.2 % (0.0-10.0); %Lymphocytes 13.7 % (21.0-51.0); %Monocytes 8.9 % (0.0-10.0); %Neutrophils 73.9 % (42.0-75.0); Hemoglobin 11.7 g/dL (12.0-16.0); Mean Corpuscular Hemoglobin 31.7 pg (27.0-31.0); Mean Corpuscular Volume 90.6 fL (78.0-98.0); Mean Platelet Volume 7.3 fL (7.4-10.4); Platelet Count 145 thou/uL (130-400); RBC Distribution Width 13.1 % (11.5-14.5); White Blood Cell (WBC) Count 7.5 thou/uL (4.8-10.8)
[2018-02-07 08:15] LABS: Anion Gap 13 mmol/L (10-20); BUN (Urea Nitrogen) 35 mg/dL (9.8-20.1); Calc. Creatinine Clearance 73 mL/min (70-130); Calcium 9.8 mg/dL (7.8-10.44); Carbon Dioxide 25 mmol/L (23-31); Chloride 104 mmol/L (98-107); Estimated GFR-MDRD 45; Glucose 123 mg/dL (83-110); Potassium 4.9 mmol/L (3.5-5.1); Sodium 137 mmol/L (136-145)
--- NOTE | 2018-02-07 08:37 | HP ---
DATE OF ADMISSION: 02/06/2018 CHIEF COMPLAINT: Dizziness and a fall. HISTORY OF PRESENT ILLNESS: This is a 72-year-old female with a history of right knee spacer, mojica ry artery disease, hypertension; diabetes, insulin-dependent diabetic; right heel slowly healing ulce r, morbid obesity, comes in with a brief episode of dizziness and falling face forward from the wheel chair when she was trying to transfer from the bed to the wheelchair. The patient does not think james t she lost her consciousness. According to the EMS, the blood pressure on site was 100/40 but her bl ood pressures have been consistently okay in the ER. Previously, patient had similar dizzy spells an d also loss of balance because of the right knee pain and also the spacer and physical deconditioning because of the right knee pain and morbid obesity. The problem is also that the patient has Kwaku wra p and wound pressure dressing around her right foot, heel, and the right lower extremity. This makes patient a little more wobbly, which can again lead to loss of balance and falls. PAST MEDICAL HISTORY: Significant for coronary artery disease, bypass x4, stent x1, right bilateral knee replacement, right knee replacement hardware infection, removal of the hardware, treatment with antibiotics for 6 weeks plus for the right knee joint infection; right knee spacer, right now; slowly healing chronic right heel ulcer, insulin-dependent diabetes, hypertension, morbid obesity, physical deconditioning. PAST SURGICAL HISTORY: History of bilateral knee replacement followed by right knee hardware removal due to the infection followed by right knee spacers, history is also significant for stent x1, bypas s x4. ALLERGIES: The patient is allergic to PLAVIX, COCONUT OIL, CODEINE, KETOROLAC, LATEX, PENICILLIN, BECKMAN LFA, TIZANIDINE and COCONUT. REVIEW OF SYSTEMS: Constitutional: The patient denies any history of chills or fever. Does report loss of balance, weakness and dizziness. Eyes: Negative for any eye pain or eye discharge or change s in the vision. ENT: Negative for ear, nose and throat pain or discharge or swelling. Cardiovascu lar: Negative for any chest pain or palpitations. Respiratory: Denies any history of shortness of breath or cough or sputum production Gastrointestinal: No abdominal pain, some nausea, no vomiting, no constipation. Genitourinary: Positive for incontinence. Musculoskeletal: Right lower extremit y swelling plus right knee pain. Skin: A small scrape on the right elbow after the reported fall in the morning. Neurologic: Complains of dizziness and sense of loss of balance at times. The patien t would need a wheelchair to move around. Sometimes she can walk, but she is pretty independent at t he wheelchair transfers, walking to the bathroom or using the walker. PHYSICAL EXAMINATION: VITAL SIGNS: Blood pressure 130/80, heart rate around 76, respiratory rate 18. CONSTITUTIONAL: The patient is alert and oriented to place, person and time. No undue distress. HEENT: Atraumatic head. Eye examination is within normal limits. Pupils are round and reactive. C onjunctivae are nonicteric. External ears are within normal limits canal and tympanic membrane is wi thin normal limits. NECK: Normal. It is supple with no swelling and preserved movements of the neck. RESPIRATORY: Chest, good airway entry on auscultation. No wheezes, no rales. CARDIOVASCULAR: Regular rate and rhythm. No murmurs. ABDOMEN: Soft, NTND, +4 bowel sounds. EXTREMITIES: Upper extremity, a small scrape on the right elbow following the fall. Right lower ext remity, a swollen knee down wrapped in Kwaku bandage. NEUROLOGIC: Within normal limits. Patient needs some assistance with a transfer from the wheelchair to the bed. Gait not examined. PSYCHIATRIC: Normal affect, normal speech. ASSESSMENT AND PLAN: Dizziness/possible loss of balance with lower extremity wound dressing, morbid obesity, physical deconditioning, right knee spacers, right knee pain. Patient's vital signs after a dmission have been within normal limit. We will observe her over 23 hours. Monitor her with telemet ry. ASSESSMENT: 1. Coronary artery disease. 2. Hypertension. 3. Diabetes. 4. Right knee pain. PLAN: Continue all the home medications. Keep the patient in telemetry and monitor over 24 hours an d if patient is doing well, do let her go home to follow up with her primary care as an outpatient.
[2018-02-07] MEDS: Cephalexin 250 MG CAP PO SCH (08:46)
[2018-02-07] MEDS: cloNIDine 0.3 MG TAB PO SCH (08:52)
[2018-02-07] MEDS: TROSPIUM 20 MG TABLET PO SCH (08:58)
[2018-02-07] MEDS ORDERED: Escitalopram Oxalate 10 mg Tablet PO SCH (09:00)
[2018-02-07] MEDS ORDERED: Triamterene/Hydrochlorothiazide 37.5 mg/25 mg Tablet PO SCH (09:00)
[2018-02-07] MEDS ORDERED: Aspirin 81 mg Enteric Coated Tablet PO SCH (09:00)
[2018-02-07] MEDS ORDERED: Insulin Glargine 23 UNITS in Pre-Filled Syringe 1 EACH SC SCH (09:00)
[2018-02-07] MEDS ORDERED: Insulin Glargine 25 UNITS in Pre-Filled Syringe 1 EACH SC SCH (09:00)
[2018-02-07] MEDS ORDERED: Lisinopril 20 MG TAB PO SCH (09:00)
[2018-02-07] MEDS ORDERED: Atenolol 25 MG TAB PO SCH (09:00)
[2018-02-07] MEDS ORDERED: Insulin Glargine 20 UNITS in Pre-Filled Syringe 1 EACH SC SCH (09:00)
--- NOTE | 2018-02-07 12:13 | PDOC.PN ---
- Subjective Encounter Start Date: 02/07/18 (f/u MARIE) Encounter Start Time: 12:11 Subjective: pt reports improvement today, denies any dizziness or any concerns - Objective Vital Signs & Weight: Vital Signs (12 hours) Temp Pulse Resp BP Pulse Ox 02/07/18 11:29 97.4 F L 70 16 113/56 L 95 02/07/18 08:48 74 02/07/18 07:43 97.9 F 74 20 02/07/18 07:38 97.8 F 61 19 170/70 H 95 02/07/18 03:41 97.9 F 74 20 148/67 H 95 Weight Weight 239 lb I&O: 02/06/18 02/07/18 02/08/18 06:59 06:59 06:59 Intake Total 700 Output Total 400 Balance 300 Result Diagrams: 02/07/18 07:30 02/07/18 07:30 Additional Labs: Accuchecks 02/07/18 02/07/18 02/06/18 10:31 05:26 21:34 POC Glucose 169 H 113 H 126 H Phys Exam - Physical Examination Constitutional: NAD Respiratory: no wheezing, no rales, no rhonchi, clear to auscultation bilateral Cardiovascular: RRR, no significant murmur Gastrointestinal: soft, non-tender, no distention, positive bowel sounds right leg wrapped by wound care at home - changes on Neurological: non-focal, moves all 4 limbs Psychiatric: normal affect Skin: no rash Dx/Plan (1) MARIE (acute kidney injury) Code(s): N17.9 - ACUTE KIDNEY FAILURE, UNSPECIFIED Status: Acute - Plan * Renal function improved - will d/c lisinopril and maxzide for kidneys to fully recover. Based on hx discussed iwht patient, likely pre-renal etiology as she reports little PO intake. * renal ultrasound to insure no obstruction * anticipate home and close f/u with Dr. Linares if renal US normal * * discussed plan of care with patient and , no quesitons or ufrhter needs at end of eval * * Patient discharged today 0- please see d/c summary for all diagnoses
--- NOTE | 2018-02-07 15:07 | ULT ---
RENAL ULTRASOUND: 02/07/2018 HISTORY: Acute kidney insufficiency. COMPARISON: None. TECHNIQUE: Multiplanar magaña-scale sonographic imaging of the kidneys and urinary bladder obtained. FINDINGS: The right kidney measures 11.1 x 5.9 x 5.7 cm, and the left kidney measures 9.4 x 4.9 x 3.8 cm. Urin aishwarya bladder volume is 207 mL. Bilateral ureteral jets are noted. Cholelithiasis is incidentally noted. No discrete renal mass, hydronephrosis, or renal stone seen on either side. Patient body habitus limits detailed assessment of the kidneys. There is bilateral cortical thinning noted, left greater than right, with cortical thickness on the right in the 1.2 cm range and cortica l thickness on the left in the 1 cm range. IMPRESSION: 1. Findings suggesting bilateral cortical thinning, left greater than right. No hydronephrosis note d. 2. Cholelithiasis. POS: HENRY
[2018-02-07 15:46] VITALS: BP 151/66; TEMP 98.1
--- NOTE | 2018-02-07 20:44 | DIS ---
DATE OF ADMISSION: 02/06/2018 DATE OF DISCHARGE: 02/07/2018 MEDICATIONS: Reconciled at discharge. DISCONTINUED MEDICATIONS: For now until directed by Dr. Linares or Dr. Quinonez, 1. Lisinopril 80 mg daily. 2. Maxzide 1 tablet daily. 3. Metformin 1000 mg b.i.d. MEDICATIONS TO CONTINUE: 1. Aspirin 81 mg daily. 2. Atenolol 75 mg daily. 3. Keflex 500 mg b.i.d. 4. Trulicity 1.5 mg subcutaneous every 7 days. 5. Escitalopram 10 mg daily. 6. Gabapentin 600 mg every 6 hours. 7. Lantus 23 units in the day, 30 units at night. 8. Levothyroxine 125 mcg daily. 9. Simvastatin 40 mg at bedtime. 10. Tolterodine tartrate 4 mg daily. 11. Clonidine 0.3 mg b.i.d. FOLLOWUP: 1. Followup is in two days with a metabolic panel with the results to be faxed to Dr. Linares. 2. Followup at the beginning of next week with Dr. Linares with an appointment in his office. 3. Followup with Dr. Quinonez within 1 week to evaluate blood pressures and adjust medication. FINAL DIAGNOSES: 1. Acute kidney injury, resolved. 2. Weakness and dizziness likely secondary to dehydration. SECONDARY DIAGNOSES: 1. Coronary artery disease with history of bypass and stents. 2. Hypertension. 3. Right knee replacement hardware infection status post removal with spacer in place. 4. Chronic right heel ulcer. 5. Type 2 diabetes. 6. Morbid obesity. 7. Physical deconditioning. 8. Anemia, mild and chronic. HISTORY OF PRESENT ILLNESS: Ms. Negron is a 72-year-old female with the above medical problems who presented to the emergency room due to a fall from the wheelchair when she was trying to transfer. When EMS found her, her blood pressure was low at 100/40, she was brought to the emergency room. Due to her comorbidities and presentation, patient was placed in observation status in the hospital. HOSPITAL COURSE: Overnight, the patient reports feeling well today, she received some IV fluids in the emergency room that were discontinued. She has been taking p.o., overall feeling well. Her blood pressures have ranged from 113/56 to a high of 170/70. For the acute kidney injury, the patient did receive IV fluids, and in discussion with her, it is likely secondary to poor fluid intake. She notes a decreased thirst in addition to spending hours on a computer and not thinking about drinking fluids. It is likely that the fall was secondary to dehydration , but also to hypotension that resulted from it, and this contributed to the acute kidney injury. The patient did receive her lisinopril and had Maxzide today; however, these are being stopped at discharge. Her creatinine is improved, she is taking p.o., and will follow up with her propeller tester in the outpatient setting to ensure continued improvement of her renal function. She will hold the lisinopril, Maxzide, and metformin until directed otherwise either by Dr. Linares or Dr. Valentine. The patient is overall feeling well and meets criteria for discharge to home. PHYSICAL EXAMINATION: Please see the daily note on chart. DIET: Heart healthy and carbohydrate consistent. ACTIVITY: As tolerated. I reviewed with patient and her this hospitalization, the change in medications and the reason behind it, the importance of followup. They demonstrate understanding. Total time coordinating discharge is 30 minutes. JOHNSON FINDINGS AND TEST RESULTS: 1. CBC 7.5, 11.7, 33.5, 145. 2. Renal panel today, 137, 4.9, 104, 25, 35, 1.18, 123. 3. On admission, creatinine was 1.44 and potassium 5.2. 4. Total bilirubin 0.4, AST 18, ALT 20, alkaline phosphatase 69, total protein 6.5, albumin 3.8. 5. Troponin was negative. 6. Urine culture preliminary shows mixed skin and enteric dee present. 7. Renal ultrasound performed today shows findings suggestive of bilateral cortical thinning, left greater than right. No hydronephrosis, and cholelithiasis. MTDD
--- NOTE | 2018-02-12 11:37 | EKG ---
Test Reason : Blood Pressure : / mmHG Vent. Rate : 063 BPM Atrial Rate : 063 BPM P-R Int : 154 ms QRS Dur : 142 ms QT Int : 480 ms P-R-T Axes : 017 027 077 degrees QTc Int : 491 ms Electronic ventricular pacemaker No ST elevation/MS Confirmed by IDALIA TRIVEDI DO ([id number]), writer editor KIT MORIN ([id number]) on 02/12/2018 11:37:37 AM Referred By: Confirmed By:IDALIA TRIVEDI DO
== END 2018-02-07 16:39 | disposition home or self-care (01) ==
LOC: ERS 12:16 → 2SW 15:15
PROVIDERS: ADMIT Family Medicine; ATTEND Family Medicine
DX: R42 Dizziness and giddiness (principal); N17.9 Acute kidney failure, unspecified; I25.10 Atherosclerotic heart disease of native coronary artery without angina pectoris; I10 Essential (primary) hypertension; E11.621 Type 2 diabetes mellitus with foot ulcer; L97.419 Non-pressure chronic ulcer of right heel and midfoot with unspecified severity; M25.561 Pain in right knee; D64.9 Anemia, unspecified; E66.01 Morbid (severe) obesity due to excess calories; Z68.41 Body mass index [BMI] 40.0-44.9, adult; Z79.4 Long term (current) use of insulin; Z79.82 Long term (current) use of aspirin; Z79.899 Other long term (current) drug therapy; Z88.8 Allergy status to other drugs, medicaments and biological substances; Z88.5 Allergy status to narcotic agent; Z88.0 Allergy status to penicillin; Z88.2 Allergy status to sulfonamides; Z91.040 Latex allergy status; Z91.018 Allergy to other foods; Z95.1 Presence of aortocoronary bypass graft; Z95.5 Presence of coronary angioplasty implant and graft; Z96.653 Presence of artificial knee joint, bilateral; W05.0XXA Fall from non-moving wheelchair, initial encounter
CPT/HCPCS: 76770; 80048; 80053; 82553; 82962 ×2; 84484; 85025 ×2; 87086; 93005; 96365; 99285; G0378 ×2; 36415; 36416; 81003; 81015; J0696

== ENCOUNTER 2018-03-31 08:04 | Outpatient (CLI) | payer MEDICARE ==
[2018-03-31] MEDS ORDERED: Sodium Chloride 0.9% 15 ML NEB ONE (09:00)
--- NOTE | 2018-03-31 09:29 | PRG ---
DATE OF SERVICE: 03/31/2018 HISTORY: Ms. Sachi Negron is a very pleasant 73-year-old who presents to the [facility] Center for e valuation of an ulceration of the right heel. The patient has completed a course of treatment with D ermagraft for her right heel ulceration. The patient has also completed a course of treatment with M atriStem sheets. The patient has no complaints today. She denies any fever or chills. The patient is currently receiving dressing changes of Promogran, with the assistance of Home Health for her righ t heel ulceration. PHYSICAL EXAMINATION: VITAL SIGNS: Temperature 98.0, pulse 69, respirations 20, blood pressure 130/61. EXTREMITIES: The ulceration over the right heel measures approximately 0.7 x 0.6 cm. The dimensions of the wound at the time of the patient's visit on 01/27/2018 were approximately 1.4 x 1.1 cm. Gran ulation tissue is present within the wound margins. No purulent drainage is associated with the woun d. The cellulitis of the right foot is appreciated. No maceration of the skin of the periwound is n oted. No significant edema of the right foot is present on exam today. ASSESSMENT AND PLAN: 1. Ulceration of right foot as described above. Dressing changes of Medihoney, 4 x 4s, Kerlix, and an Kwaku bandage will be initiated today. These dressing changes are to be performed 3 times per week after cleansing and irrigation with the assistance of Home Health. Orders will be transmitted to [facility] for the preceding dressing changes to be continued until the wound has healed completely. 2. Hypertension. 3. Diabetes mellitus. The patient has been reminded that for optimal wound healing, her blood gluco ses should remain below 150. 4. Hypothyroidism. 5. Coronary artery disease. 6. Osteoarthritis. 7. Hepatitis A. 8. Obstructive sleep apnea. 9. Peripheral vascular disease. 10. Nephrolithiasis.
== END 2018-03-31 08:05 | disposition home or self-care (01) ==
LOC: WCC 08:04
PROVIDERS: ATTEND Family Medicine
DX: E11.621 Type 2 diabetes mellitus with foot ulcer (principal); L97.419 Non-pressure chronic ulcer of right heel and midfoot with unspecified severity; E11.51 Type 2 diabetes mellitus with diabetic peripheral angiopathy without gangrene; I10 Essential (primary) hypertension; E03.9 Hypothyroidism, unspecified; I25.10 Atherosclerotic heart disease of native coronary artery without angina pectoris; G47.33 Obstructive sleep apnea (adult) (pediatric); M19.90 Unspecified osteoarthritis, unspecified site; K75.9 Inflammatory liver disease, unspecified; N20.0 Calculus of kidney
CPT/HCPCS: A4218

== ENCOUNTER 2018-05-12 12:53 | Outpatient (CLI) | payer MEDICARE ==
--- NOTE | 2018-05-12 15:00 | PRG ---
DATE OF SERVICE: 05/12/2018 HISTORY: Ms. Sachi Negron is a very pleasant 73-year-old who presents to the Wound Center for ev aluation of an ulceration of the right heel. The patient has completed a course of treatment with De rmagraft for her right heel ulceration. The patient has also completed a course of treatment with Ma triStem sheet. The patient has also received a trial of dressing changes with Promogran. Most recen tly, the patient has been receiving dressing changes of Medihoney 3 times per week with the assistanc e of Home Health. Ms. Negron today states that the wound still has not closed completely. She has no other complaints today. She denies any fever or chills. PHYSICAL EXAMINATION: VITAL SIGNS: Temperature 97.6, pulse 71, respirations 18, blood pressure 195/83. EXTREMITIES: The ulceration over the right heel measures approximately 0.8 x 0.5 cm. Granulation ti ssue is present within the wound margins. Necrotic and nonviable tissue present within the wound mar gins was debrided with an excisional full-thickness debridement with the use of a curette and scissor s. No purulent drainage is associated with the wound. No erythema of the skin surrounding the wound is present. No maceration of the skin of the periwound is noted. No significant edema of the right foot is present on exam today. ASSESSMENT AND PLAN: 1. Ulceration of right heel as described above. Dressing changes of Medihoney, 4 x 4s, Kerlix, and an Kwaku bandage will be continued 3 times per week after cleansing and irrigation with the assistance of Home Health. The wound has almost healed completely and Ms. Negron will be discharged from clinic today with followup on a p.r.n. basis. 2. Hypertension. 3. Diabetes mellitus. The patient has been reminded that for optimal wound healing, her blood gluco ses should remain below 150. 4. Hypothyroidism. 5. Coronary artery disease. 6. Osteoarthritis. 7. Hepatitis A. 8. Obstructive sleep apnea. 9. Peripheral vascular disease. 10. Nephrolithiasis.
[2018-05-12] MEDS ORDERED: Lidocaine 2% Jelly 5 ML TUBE ONE (18:00)
== END 2018-05-12 12:54 | disposition home or self-care (01) ==
LOC: WCC 12:53
PROVIDERS: ATTEND Family Medicine
DX: E11.621 Type 2 diabetes mellitus with foot ulcer (principal); L97.419 Non-pressure chronic ulcer of right heel and midfoot with unspecified severity; I10 Essential (primary) hypertension; I25.10 Atherosclerotic heart disease of native coronary artery without angina pectoris; N20.0 Calculus of kidney; I73.9 Peripheral vascular disease, unspecified; G47.33 Obstructive sleep apnea (adult) (pediatric); M19.90 Unspecified osteoarthritis, unspecified site; E03.9 Hypothyroidism, unspecified; B15.9 Hepatitis A without hepatic coma
CPT/HCPCS: 11042

== ENCOUNTER 2018-07-04 08:00 | Outpatient (CLI) | payer MEDICARE ==
--- NOTE | 2018-07-04 09:46 | PRG ---
DATE OF SERVICE: 07/04/2018 SUBJECTIVE: Ms. Sachi Negron is a very pleasant 73-year-old, who [facility] evaluation of an ulceration of the right heel. The patient has completed a course of treatment with Dermagraft for right heel ulceration. The patient has also completed a course of treatment with MatriStem sheet. The patient has also received treatment with Promogran and Medihoney for her right heel ulceration. Ms. Negron has no complaints today. She denies any fever or chills. OBJECTIVE: VITAL SIGNS: Temperature 97.9, pulse 73, respirations 21, blood pressure 166/72. Accu-Chek 173. EXTREMITIES: The ulceration over the right heel measures approximately 1.7 x 1.0 cm. The wound is associated with thick eschar. Necrotic and nonviable tissue present within the wound margins were debrided with an excisional full-thickness debridement with the use of a curette and scissors. No purulent drainage is associated with the wound. No erythema of the skin surrounding the wound is present. No maceration of the skin of the periwound is noted. No significant edema of the right foot is present on exam today. ASSESSMENT AND PLAN: 1. Ulceration of right heel as described above. Dressing changes of Xeroform gauze and bordered gauze are to be performed 3 times per week after cleansing and irrigation with the assistance of Home Health. The patient has been told that the wound has almost healed completely and Ms. Negron will be discharged from clinic today with followup on a p.r.n. basis. Home health will continue the preceding dressing changes until the wound has healed completely. 2. Hypertension. 3. Diabetes mellitus. The patient's Accu-Chek in clinic today is 173. The patient has been reminded that for optimal wound healing her blood glucoses should remain below 150. 4. Hypothyroidism. 5. Coronary artery disease. 6. Osteoarthritis. 7. Hepatitis A. 8. Obstructive sleep apnea. 9. Peripheral vascular disease. 10. Nephrolithiasis. Job ID: [id number]
[2018-07-04] MEDS ORDERED: Sodium Chloride 0.9% 15 ML NEB ONE (11:11)
[2018-07-04] MEDS ORDERED: Lidocaine 4% Topical Sol 50 ML BOT ONE (11:11)
== END 2018-07-04 08:01 | disposition home or self-care (01) ==
LOC: WCC 08:00
PROVIDERS: ATTEND Family Medicine
DX: E11.621 Type 2 diabetes mellitus with foot ulcer (principal); L97.419 Non-pressure chronic ulcer of right heel and midfoot with unspecified severity; I10 Essential (primary) hypertension; E03.9 Hypothyroidism, unspecified; I25.10 Atherosclerotic heart disease of native coronary artery without angina pectoris; M19.90 Unspecified osteoarthritis, unspecified site; B15.9 Hepatitis A without hepatic coma; G47.33 Obstructive sleep apnea (adult) (pediatric); N20.0 Calculus of kidney; E11.51 Type 2 diabetes mellitus with diabetic peripheral angiopathy without gangrene
CPT/HCPCS: 11042; A4218; J2001

== ENCOUNTER 2018-07-18 13:06 | Outpatient (CLI) | payer MEDICARE ==
[2018-07-18 13:57] LABS: Anion Gap 18 mmol/L (10-20); BUN (Urea Nitrogen) 19 mg/dL (9.8-20.1); Bilirubin Negative (Negative); Blood, Urine Small (Negative); Calc. Creatinine Clearance 0 mL/min (70-130); Calcium 9.5 mg/dL (7.8-10.44); Carbon Dioxide 24 mmol/L (23-31); Chloride 101 mmol/L (98-107); Clarity Slightly Cloudy (Clear); Estimated GFR-MDRD 38; Glucose 256 mg/dL (83-110); Glucose, Urine (Dipstick) 100 mg/dL (Negative); Leukocyte Trace (Negative); Nitrite Negative (Negative); Potassium 4.1 mmol/L (3.5-5.1); Protein, Urine (Dipstick) Negative (Neg-Trace); Sodium 139 mmol/L (136-145); Specific Gravity, Urine 1.015 (1.005-1.030); Uric Acid 6.7 mg/dL (2.6-6.0); Urobilinogen 0.2 mg/dL (0.2-1.0); pH, Urine 5.5 (5.0-9.0)
[2018-07-18 14:05] LABS: Bacteria/HPF 1+ HPF (None Seen); Squamous Epithelial 0-3 HPF (0-3)
[2018-07-18 14:06] LABS: Hyaline Casts/LPF 0-3 HYALINE CAST LPF (0-3 Hyaline); Yeast-All Forms Rare HPF (None Seen)
--- NOTE | 2018-07-18 16:47 | ULT ---
ULTRASOUND RETROPERITONEUM COMPLETE: (RENAL) DATE: 07/18/18 HISTORY: 73-year-old female with calculus of kidney. COMPARISON: 02/07/18. FINDINGS: Detailed visualization of bilateral kidneys is limited because of body habitus. Right kidney measures 12.5 x 4.5 x 5.5 cm. Left kidney is currently measured as 6.5 x 3.5 x 2.5 cm, significantly smaller than on the previous u ltrasound. Again noted is the bilateral renal parenchymal thinning, left worse than right. There is no hydronephrosis bilaterally. Bilateral ureteral jets are demonstrated in the bladder. Bladder volume is approximately 65 mL. IMPRESSION: 1. No hydronephrosis. 2. Renal parenchymal thinning, not unusual for age. 3. Atrophic, difficult to visualize left kidney. BRAXTON Mukherjee POS: [facility]
== END 2018-07-18 13:07 | disposition home or self-care (01) ==
LOC: SCSULT 13:06
PROVIDERS: ATTEND Urology
DX: N20.0 Calculus of kidney (principal); N26.1 Atrophy of kidney (terminal)
CPT/HCPCS: 36415; 74018; 76770; 80048; 81001; 84550; 87086

== ENCOUNTER 2018-07-18 13:25 | Outpatient (CLI) | payer MEDICARE ==
--- NOTE | 2018-07-18 16:23 | RAD ---
ABDOMEN ONE VIEW: History: Renal calculi. FINDINGS/IMPRESSION: No suspicious calculi are seen. The bowel gas pattern is unremarkable. An IVC filter is noted. There are post op changes with pedicles screws in the lower lumbar spine. POS: [facility]
== END 2018-07-18 13:26 | disposition home or self-care (01) ==
LOC: SCSRAD 13:25
PROVIDERS: ATTEND Family Medicine
DX: N20.0 Calculus of kidney (principal); Z98.890 Other specified postprocedural states
CPT/HCPCS: 74018

== ENCOUNTER 2018-10-06 20:07 | Emergency (ER) | payer MEDICARE ==
--- NOTE | 2018-10-06 22:36 | CT ---
CT BRAIN WITHOUT CONTRAST: 10/06/18 HISTORY: Headache. FINDINGS: There are changes of chronic small vessel ischemic disease in the periventricular white matter. An ol d lacunar infarct is seen in the right basal ganglia. There is encephalomalacia in the left upper cer ebellum likely due to old infarction. No evidence of acute infarct, hemorrhage, midline shift or abno rmal axial fluid collections seen. the bony calvarium is intact. The visualized paranasal sinuses are well aerated. IMPRESSION: No CT evidence of acute intracranial process. POS: [facility]
[2018-10-06] MEDS ORDERED: cloNIDine 0.1 MG TAB ONE (23:40)
[2018-10-06] MEDS ORDERED: Proparacaine 0.5% Opth 15 ML BOT ONE (23:48)
== END 2018-10-07 00:05 | disposition home or self-care (01) ==
LOC: ERS 20:07
DX: R51 Headache (principal); I10 Essential (primary) hypertension; E11.9 Type 2 diabetes mellitus without complications; F43.10 Post-traumatic stress disorder, unspecified; E78.5 Hyperlipidemia, unspecified; F32.9 Major depressive disorder, single episode, unspecified; E03.9 Hypothyroidism, unspecified; Z79.82 Long term (current) use of aspirin; Z79.4 Long term (current) use of insulin; Z87.891 Personal history of nicotine dependence; Z79.899 Other long term (current) drug therapy
CPT/HCPCS: 70450

== ENCOUNTER 2018-12-08 09:36 | Outpatient (CLI) | payer MEDICARE ==
--- NOTE | 2018-12-08 10:16 | BD ---
DEXA BONE SCAN: HISTORY: Age-related osteoporosis. FINDINGS: DEXA bone scan is performed using Hologic bone mineral density unit. Right hip: Femoral neck 0.79 T-score: -0.5, Z-score: 1.5 Composite 1.02 T-score: 0.6, Z-score: 2.4 Findings compatible with normal bone mineral density. Left hip: Femoral neck 0.78 T score: -0.6, Z score 1.5 Composite 1.10 T score 1.3 , Z score 3.0 IMPRESSION: Normal bone mineral density. No significant increased risk of osteoporotic fracture seen. Transcribed Date/Time: 12/08/2018 10:47 AM
== END 2018-12-08 09:37 | disposition home or self-care (01) ==
LOC: BICMAMMO 09:36
PROVIDERS: ATTEND Family Medicine
DX: Z13.820 Encounter for screening for osteoporosis (principal); Z78.0 Asymptomatic menopausal state
CPT/HCPCS: 77080

== ENCOUNTER 2019-01-18 06:51 | Day surgery (SDC) | payer MEDICARE ==
[2019-01-17 12:45] VITALS: BMI 43.0
--- NOTE | 2019-01-18 09:24 | RAD ---
CERVICAL SPINE MYELOGRAM: Date: 01/18/2019 COMPARISON: None. HISTORY: Cervical disc degenerative disease, cervical radiculopathy. FINDINGS: Informed consent obtained prior to the procedure. Human Resources Technician imaging of cervical spine demonstrates vascular stent material overlying the neck on the left. There is multilevel bilateral cervical spine facet and uncovertebral osteophyte formation. Midline sternotomy wires and incompletely imaged transvenous pacing device present. The skin overlying the lower lumbar spine was prepped and draped in normal sterile fashion. Posterior fusion hardware is present at the L4-5 level. Skin at the L3-4 level was anesthetized with 1% buffered lidocaine. With intermittent fluoroscopic guidance, a 22-gauge spinal needle is advanced into the thecal sac and removal of the stylet yields clear cerebrospinal fluid. Subsequently, approximately 12 mL of Isovue-300 was injected. Needle was removed. Patient tolerated the procedure well. Patient was placed in Trendelenburg position, extending contrast media into the cervical region. The patient was then sent to the CT scanner for CT myelogram of the cervical spine. Exposure data: 3.4 minutes of fluoroscopic time, 1735.7 microgray/M2. IMPRESSION: Successful cervical spine myelogram, CT myelogram to follow. Transcribed Date/Time: 01/18/2019 10:06 AM
--- NOTE | 2019-01-18 09:53 | CT ---
CERVICAL SPINE CT MYELOGRAM: Date: 01/18/2019 COMPARISON: CT of the cervical spine 06/19/2016. HISTORY: Cervical degenerative disc disease, cervical radiculopathy. TECHNIQUE: Following the intrathecal administration of iodinated contrast media, axial CT imaging pro vided at 2.5 mm intervals from skull base through upper thoracic spine with coronal and sagittal reformatted imaging. FINDINGS: There is good opacification of the thecal sac. There is stable moderate degenerative change at the at lantoaxial interspace. Craniocervical junction is intact. There is minimal anterolisthesis at C4-5 measuring approximately 2-3 mm. Motion artifact limits detailed assessment of the lower cervical spine. No prevertebral soft tissue swelling. There is atherosclerotic calcification of the basilar artery, distal right vertebral artery, and bila teral internal carotid arteries, poorly assessed on this exam. There is a left ICA stent, also not well assessed on this exam. C1-2 articulation, dens, and occipital condyles demonstrate no acute findings. C1 ring is intact. C2-3: No significant central canal or neural foraminal stenosis. C3-4: Minimal posterior osteophyte. Mild left facet hypertrophy. No central canal or neural foraminal stenosis. C4-5: Small central disc protrusion with effacement of the ventral thecal sac and mild central canal stenosis. Mild facet hypertrophy on the left. No significant neural foraminal stenosis. C5-6: Bilateral facet hypertrophy, primarily left-sided. Mild left neural foraminal stenosis. No sign ificant central canal stenosis or right neural foraminal stenosis. C6-7: Mild bilateral facet hypertrophy. No significant central canal or neural foraminal stenosis. C7-T1: Mild facet hypertrophy bilaterally with no significant central canal or neural foraminal steno sis. No acute fracture or evidence of dislocation. No suspicious lytic or blastic bone lesion. IMPRESSION: No significant central canal or neural foraminal stenosis. Transcribed Date/Time: 01/18/2019 10:11 AM
== END 2019-01-18 10:25 | disposition home or self-care (01) ==
LOC: RAD 06:51
PROVIDERS: ATTEND Neurological Surgery
DX: M50.10 Cervical disc disorder with radiculopathy, unspecified cervical region (principal); I25.10 Atherosclerotic heart disease of native coronary artery without angina pectoris; I10 Essential (primary) hypertension; E11.9 Type 2 diabetes mellitus without complications; E78.5 Hyperlipidemia, unspecified; C18.9 Malignant neoplasm of colon, unspecified; F32.9 Major depressive disorder, single episode, unspecified; E66.01 Morbid (severe) obesity due to excess calories; Z88.0 Allergy status to penicillin; Z88.2 Allergy status to sulfonamides; Z88.5 Allergy status to narcotic agent; Z91.018 Allergy to other foods; Z91.040 Latex allergy status; Z95.1 Presence of aortocoronary bypass graft
CPT/HCPCS: 62302; 72126

== ENCOUNTER 2019-01-20 09:02 | Outpatient (CLI) | payer MEDICARE ==
[~2019-01-20 09:02] MED LIST changes: +Iopamidol 370 76% 100 ML VIAL ONE; -Sodium Chloride 0.9% 15 ML NEB ONE
--- NOTE | 2019-01-20 12:03 | CT ---
CT ABDOMEN WITH AND WITHOUT IV CONTRAST CLINICAL INFORMATION: Blood in stool with recent colonoscopy demonstrating a colon mass. COMPARISON: Noncontrast CT abdomen and pelvis on 04/28/2017 Technique: Multiple contiguous axial CT images are obtained through the abdomen and pelvis with IV contrast. Cor onal reformatted images are provided. FINDINGS: Lower Chest: A calcified granuloma is present at the right lung base. Minimal linear densities are se en in each lung base which may relate to dependent atelectasis. A small hiatal hernia is identified. Vessels: Vascular calcifications are seen in the coronary arteries as well as involving the abdominal aorta and iliac arteries. There is partial visualization of cardiac pacemaking leads. IVC filter is noted in place with tip at the level of the lowest right renal vein. Abdomen: Portal vein:Patent Gallbladder: Gallbladder calculi are again seen. Liver: Few hepatic granulomata are identified. The liver otherwise has a normal appearance Spleen: Splenic granulomata are seen. There is an enhancing mass seen in the body of the spleen measu ring 1.9 cm with a smaller enhancing lesion in the inferior pole body of the spleen measuring 0.9 cm. Exact etiology is uncertain. These enhancing lesions could be related to hemangiomas. Pancreas: within normal limits. Adrenals: within normal limits. Kidneys: The left kidney is again atrophic. Left ureteral stent noted on study in 2017 is no longer s een. Right kidney is rotated but otherwise demonstrates a normal appearance Bowel: There is a mass present within the region of the hepatic flexure with masslike thickening of t he colon wall and low-density area/collection extending inferiorly and medially at the level of the colonic wall thickening which is contiguous with the lumen of the colon. Peritoneum: No ascites or free air; no fluid collection. Mesentery and Retroperitoneum: No enlarged mesenteric or retroperitoneal lymph nodes. Abdominal Wall: within normal limits. Bones: Postsurgical and degenerative changes lumbar spine are seen. No lytic or sclerotic osseous les ions are identified. IMPRESSION: 1. Colonic mass involving the hepatic flexure with low-density collection extending medially and infe riorly which is contiguous with the lumen of the colon in this region. 2. There is no evidence of lymphadenopathy. 3. Enhancing lesions within the spleen which may represent small hemangiomas. Follow-up evaluation in 6 months is recommended. 4. Small hiatal hernia.
== END 2019-01-20 09:03 | disposition home or self-care (01) ==
LOC: SCSCT 09:02
PROVIDERS: ATTEND Internal Medicine Gastroenterology
DX: K63.89 Other specified diseases of intestine (principal); D73.9 Disease of spleen, unspecified; K44.9 Diaphragmatic hernia without obstruction or gangrene
CPT/HCPCS: 74170; 82565; Q9967

== ENCOUNTER 2019-02-03 09:14 | Outpatient (CLI) | payer MEDICARE ==
[2019-02-03 12:33] LABS: #Eosinphils 0.1 thou/uL (0.0-0.7); #Lymphocytes 1.7 thou/uL (1.20-3.40); #Monocytes 1.1 thou/uL (0.11-0.59); #Neutrophils 12.6 thou/uL (1.40-6.50); %Basophils 0.1 % (0.0-1.0); %Eosinophils 0.6 % (0.0-10.0); %Lymphocytes 11.2 % (21.0-51.0); %Neutrophils 81.1 % (42.0-75.0); Hemoglobin 9.4 g/dL (12.0-16.0); Mean Corpuscular HGB CONC 31.3 g/dL (32.0-36.0); Mean Corpuscular Hemoglobin 24.2 pg (27.0-31.0); Mean Corpuscular Volume 77.3 fL (78.0-98.0); Mean Platelet Volume 8.6 fL (7.4-10.4); Platelet Count 288 thou/uL (130-400); RBC Distribution Width 16.3 % (11.5-14.5); Red Blood Cell (RBC) Count 3.89 mill/uL (4.20-5.40); White Blood Cell (WBC) Count 15.5 thou/uL (4.8-10.8)
[2019-02-03 12:46] LABS: Hemoglobin A1c 6.7 % (4.0-6.0)
[2019-02-03 12:53] LABS: Anion Gap 17 mmol/L (10-20); BUN (Urea Nitrogen) 17 mg/dL (9.8-20.1); Calc. Creatinine Clearance 0 mL/min (70-130); Calcium 9.7 mg/dL (7.8-10.44); Carbon Dioxide 22 mmol/L (23-31); Chloride 104 mmol/L (98-107); Estimated GFR-MDRD 68; Glucose 104 mg/dL (83-110); Potassium 4.3 mmol/L (3.5-5.1); Sodium 139 mmol/L (136-145)
--- NOTE | 2019-02-03 16:32 | EKG ---
Test Reason : Blood Pressure : / mmHG Vent. Rate : 065 BPM Atrial Rate : 065 BPM P-R Int : 124 ms QRS Dur : 200 ms QT Int : 540 ms P-R-T Axes : 065 -02 087 degrees QTc Int : 561 ms Electronic ventricular pacemaker When compared with ECG of 06-FEB-2018 12:22, Vent. rate has increased BY 2 BPM Confirmed by DEBORAH TROY, DR. Schmitz ([id number]) on 02/03/2019 4:31:53 PM Referred By: MILKA Confirmed By:DR. Ainsley CABRERA MD
== END 2019-02-03 09:15 | disposition home or self-care (01) ==
LOC: LABBT 09:14
PROVIDERS: ATTEND Surgery
DX: Z01.818 Encounter for other preprocedural examination (principal); C18.3 Malignant neoplasm of hepatic flexure
CPT/HCPCS: 80048; 83036; 85025; 93005; 93010

== ENCOUNTER 2019-02-03 11:15 | Inpatient (IN) | payer MEDICARE ==
[2019-02-03 11:09] VITALS: BMI 43.0
[2019-02-09] MEDS ORDERED: Midazolam HCl 2 mg/2 ml Vial ONE (07:18)
[2019-02-09] MEDS ORDERED: Fentanyl 100 MCG/2 ML VIAL ONE ×2 (07:18→13:22)
[2019-02-09] MEDS ORDERED: Sodium Chloride 0.9% 100 ML ONE (07:54)
[2019-02-09] MEDS ORDERED: cefOXitin 2 GM VIAL ONE ×2 (07:54→11:46)
[2019-02-09] MEDS ORDERED: Insulin Regular 300 UNITS/3 ML VIAL ONE (07:54)
[2019-02-09] MEDS ORDERED: Lidocaine 1% (PF) 30 ML VIAL ONE (08:01)
[2019-02-09] MEDS ORDERED: Bupivacaine/Epinephrine 0.25% 30 ML VIAL ONE (09:01)
[2019-02-09] MEDS ORDERED: Fentanyl 250 MCG/5 ML VIAL ONE (09:07)
[2019-02-09] MEDS ORDERED: Bupivacaine HCl 0.5%/Epinephrine 1:200,000/PF 30 ml Vial ONE (09:14)
[2019-02-09] MEDS ORDERED: Glycopyrrolate 0.2 MG/ML 5 ML SYRINGE ONE (10:06)
[2019-02-09] MEDS ORDERED: Rocuronium Bromide 10 MG/ML (10ML VIAL) ONE (10:06)
[2019-02-09] MEDS ORDERED: Lidocaine 1% PF 5 ML VIAL ONE (10:06)
[2019-02-09] MEDS ORDERED: PROPOFOL 200 MG/20 ML VIAL ONE (10:06)
[2019-02-09] MEDS ORDERED: Promethazine HCl 25 MG/ML VIAL SLOW IVP PRN (12:07)
[2019-02-09] MEDS ORDERED: Promethazine HCl 25 MG/ML VIAL IM PRN (12:07)
[2019-02-09] MEDS ORDERED: Ondansetron HCl/PF 4 MG/2 ML Vial IVP PRN (12:07)
[2019-02-09] MEDS ORDERED: Ondansetron PF 4 MG/2 ML Vial ONE (12:52)
--- NOTE | 2019-02-09 12:59 | OP ---
DATE OF PROCEDURE: 02/09/2019 PREOPERATIVE DIAGNOSIS: Hepatic flexure of colon cancer. POSTOPERATIVE DIAGNOSIS: Hepatic flexure of colon cancer. PROCEDURE PERFORMED: Extended right hemicolectomy, laparoscopic DaVinci robot. ANESTHESIA: General. ESTIMATED BLOOD LOSS: Minimal. COMPLICATIONS: None. SPECIMENS: Right colon. DESCRIPTION OF PROCEDURE: The patient was taken to the operating room and laid supine on the operating room table. After general anesthetic was obtained, a Ryder was placed. The abdomen was prepped and draped in a sterile fashion. Left subcostal 5 mm Optiview trocar was placed in the usual fashion without injury, and high-flow pneumoperitoneum was obtained. Robot for camera port placed to the left of the umbilicus. An 11 mm Ethicon assist was placed in the left upper quadrant. Robot assist was placed in the left lower quadrant. The left subcostal port was switched out to the stapler port. The patient had been placed in Trendelenburg. All ports were docked to the robot. The right colon was mobilized along the white line of Toldt and a [id number] rotation was performed through the right colon mesentery. There were lots of adhesions in the right lower quadrant from prior appendectomy and these were all taken down. There were some deserosalizations to the terminal ileum during this part of the procedure. The colon was mobilized up the white line of Toldt and posteriorly. The duodenum was found and excluded from the dissection. In the area of the mass at the hepatic flexure, there was significant mesenteric locally invasive disease. Robot stapler was fired across the terminal ileum proximal to the area of deserosalization. The ports were all undocked from the robot. Upper midline incision was made of approximately 8 cm. The residual transverse colon mesentery was taken using a Chantel clamp and silk ties. There was significant locally invasive tissue in this area, so the decision was made to do this part open. ROSALEE 75 stapler was fired just distal to the area of blue dye and mass. Mesentery was taken using Chantel clamps and silk ties. The small bowel was able to brought up in an isoperistaltic fashion to the transverse colon and an isoperistaltic anastomosis was performed. The common enterotomy was closed using Vicryl suture. The 3-0 silks were used to over sew the staple line. All instrument counts, needle counts, and lap counts were correct. The fascia was closed using PDS from the top and the bottom and tied in the middle. Subcutaneous tissues were irrigated and closed using 3-0 Vicryl and 4-0 Monocryl, and Dermabond. The patient was sent to Recovery in stable condition. All instrument counts, needle counts, and lap counts were correct. Job ID: [id number]
[2019-02-09] MEDS: Sodium Chloride 0.9% 1,000 ML IV SCH ×2 (15:00→23:18)
[2019-02-09] MEDS: Acetaminophen 1,000 MG in Premix Bag 1 BAG IVPB SCH ×2 (15:09→21:35)
[2019-02-09] MEDS ORDERED: Fentanyl 100 MCG/2 ML VIAL SLOW IVP PRN (15:41)
[2019-02-09] MEDS: hydrALAZINE 20 MG/ML VIAL SLOW IVP PRN (16:07)
[2019-02-09] MEDS: Insulin Regular 300 UNITS/3 ML VIAL SC PRN (18:07)
[2019-02-09] MEDS: cefOXitin 2 GM in Sodium Chloride 0.9% 100 ML IVPB SCH (20:49)
[2019-02-09] MEDS: Famotidine/PF 20 mg/2ml Vial SLOW IVP SCH (20:56)
[2019-02-09] MEDS: Enoxaparin Sodium 40 MG/0.4 ML SYRINGE SC SCH (20:56)
[2019-02-09] MEDS: Famotidine 20 MG TAB PO SCH (21:39)
[2019-02-09] MEDS ORDERED: cloNIDine 0.3 MG TAB PO SCH (22:30)
[2019-02-10] MEDS: Acetaminophen 1,000 MG in Premix Bag 1 BAG IVPB SCH ×2 (02:30→08:35)
[2019-02-10] MEDS: cefOXitin 2 GM in Sodium Chloride 0.9% 100 ML IVPB SCH (04:20)
[2019-02-10 06:10] LABS: #Eosinphils 0.3 thou/uL (0.0-0.7); #Lymphocytes 1.3 thou/uL (1.20-3.40); #Monocytes 0.6 thou/uL (0.11-0.59); %Basophils 0.1 % (0.0-1.0); %Lymphocytes 13.8 % (21.0-51.0); %Monocytes 6.7 % (0.0-10.0); %Neutrophils 76.3 % (42.0-75.0); Hemoglobin 7.6 g/dL (12.0-16.0); Mean Corpuscular HGB CONC 31.2 g/dL (32.0-36.0); Mean Corpuscular Hemoglobin 24.1 pg (27.0-31.0); Mean Corpuscular Volume 77.2 fL (78.0-98.0); Mean Platelet Volume 8.1 fL (7.4-10.4); Platelet Count 189 thou/uL (130-400); RBC Distribution Width 16.3 % (11.5-14.5); Red Blood Cell (RBC) Count 3.16 mill/uL (4.20-5.40); White Blood Cell (WBC) Count 9.1 thou/uL (4.8-10.8)
[2019-02-10] MEDS: Levothyroxine Sodium 112 MCG TAB PO SCH (06:24)
[2019-02-10 06:29] LABS: Anion Gap 12 mmol/L (10-20); BUN (Urea Nitrogen) 11 mg/dL (9.8-20.1); Calc. Creatinine Clearance 70 mL/min (70-130); Calcium 8.6 mg/dL (7.8-10.44); Carbon Dioxide 24 mmol/L (23-31); Chloride 106 mmol/L (98-107); Estimated GFR-MDRD 44; Glucose 116 mg/dL (83-110); Sodium 138 mmol/L (136-145)
[2019-02-10] MEDS: Atenolol 25 MG TAB PO SCH (08:35)
[2019-02-10] MEDS: Famotidine 20 MG TAB PO SCH ×2 (08:36→20:15)
[2019-02-10] MEDS: cloNIDine 0.3 MG TAB PO SCH ×2 (08:36→18:35)
[2019-02-10] MEDS: Famotidine/PF 20 mg/2ml Vial SLOW IVP SCH ×2 (08:53→20:58)
[2019-02-10] MEDS: Sodium Chloride 0.9% 1,000 ML IV SCH ×3 (11:33→20:16)
[2019-02-10] MEDS: Fentanyl 100 MCG/2 ML VIAL SLOW IVP PRN ×4 (11:43→17:48)
[2019-02-10] MEDS: Insulin Regular 300 UNITS/3 ML VIAL SC PRN (11:47)
--- NOTE | 2019-02-10 14:07 | PDOC.GSPN ---
Surgery Progress Note: Subj - Subjective Patient reports: pain well controlled, tolerating liquids well Narrative: Not ambulatory yet. Only out of bed to chair Surgery Progress Note: Obj - Vital signs Vital signs: Vital Signs - Most Recent Temp Pulse Resp BP Pulse Ox 97.4 F L 60 18 149/61 H 92 L 02/10/19 11:39 02/10/19 11:39 02/10/19 11:39 02/10/19 11:39 02/10/19 11:39 - Physical Exam General: no distress Abdomen: soft, nondistended, decreased bowel sounds, appropriately tender Wound: healing well Surgery Progress Note: Results - Labs Result Diagrams: 02/10/19 05:48 02/10/19 05:48 Lab results: Laboratory Results - last 24 hr 02/10/19 02/10/19 02/10/19 05:44 05:48 05:48 WBC 9.1 RBC 3.16 L Hgb 7.6 L Hct 24.4 L MCV 77.2 L MCH 24.1 L MCHC 31.2 L RDW 16.3 H Plt Count 189 MPV 8.1 Neutrophils % 76.3 H Neutrophils % (Manual) Not Reportable Lymphocytes % 13.8 L Monocytes % 6.7 Eosinophils % 3.0 Basophils % 0.1 Neutrophils # 7.0 H Lymphocytes # 1.3 Monocytes # 0.6 H Eosinophils # 0.3 Basophils # 0.0 Sodium 138 Potassium 4.0 Chloride 106 Carbon Dioxide 24 Anion Gap 12 BUN 11 Creatinine 1.19 H Estimated GFR (MDRD) 44 Glucose 116 H POC Glucose 118 H Calcium 8.6 02/10/19 11:44 WBC RBC Hgb Hct MCV MCH MCHC RDW Plt Count MPV Neutrophils % Neutrophils % (Manual) Lymphocytes % Monocytes % Eosinophils % Basophils % Neutrophils # Lymphocytes # Monocytes # Eosinophils # Basophils # Sodium Potassium Chloride Carbon Dioxide Anion Gap BUN Creatinine Estimated GFR (MDRD) Glucose POC Glucose 195 H Calcium Surgery Progress Note: A/P - Problem (1) Mass of hepatic flexure of colon Current Visit: Yes Code(s): K63.89 - OTHER SPECIFIED DISEASES OF INTESTINE Status: Acute - Plan Plan: POD 1 right colectomy -stay on clears today -get PT to see her -DC meeks tomorrow -Fulls tomorrow if no nausea -She will likely need fpc. Pretty limited at baseline
[2019-02-10] MEDS: hydrALAZINE 20 MG/ML VIAL SLOW IVP PRN (16:23)
[2019-02-10] MEDS: Enoxaparin Sodium 40 MG/0.4 ML SYRINGE SC SCH (20:15)
[2019-02-10] MEDS: Gabapentin 300 MG CAP PO PRN (20:15)
[2019-02-10] MEDS ORDERED: Diazepam 5 MG TAB PO PRN (20:47)
[2019-02-10] MEDS ORDERED: Atorvastatin Calcium 10 MG TAB PO SCH (21:00)
[2019-02-11] MEDS: Levothyroxine Sodium 112 MCG TAB PO SCH (06:06)
[2019-02-11] MEDS: Acetaminophen 1,000 MG in Premix Bag 1 BAG IVPB PRN ×2 (06:45→19:37)
[2019-02-11] MEDS ORDERED: Lisinopril 20 MG TAB PO SCH (09:00)
[2019-02-11] MEDS ORDERED: Saccharomyces boulardii 250 MG CAP PO SCH (09:00)
--- NOTE | 2019-02-11 09:27 | PDOC.GSPN ---
Surgery Progress Note: Subj - Subjective Narrative: roshni clears. pain controlled. no nausea Surgery Progress Note: Obj - Vital signs Vital signs: Vital Signs - Most Recent Temp Pulse Resp BP Pulse Ox 98.5 F 66 16 125/62 93 L 02/11/19 07:40 02/11/19 07:40 02/11/19 07:40 02/11/19 07:40 02/11/19 07:40 - Physical Exam General: no distress Cardiovascular: regular rate and rhythm Respiratory: clear to auscultation Abdomen: soft, positive bowel sounds, appropriately tender Wound: healing well Surgery Progress Note: Results - Labs Result Diagrams: 02/10/19 05:48 02/10/19 05:48 Lab results: Laboratory Results - last 24 hr 02/10/19 02/11/19 20:47 05:53 POC Glucose 157 H 142 H Surgery Progress Note: A/P - Problem (1) Mass of hepatic flexure of colon Current Visit: Yes Code(s): K63.89 - OTHER SPECIFIED DISEASES OF INTESTINE Status: Acute - Plan Plan: POD 2 right colectomy -advance to fulls today -get PT to see her -JOSÉ LUIS meeks -Will need alf. Pretty limited at baseline
[2019-02-11] MEDS: Famotidine/PF 20 mg/2ml Vial SLOW IVP SCH ×2 (09:31→20:16)
[2019-02-11] MEDS: Famotidine 20 MG TAB PO SCH ×2 (09:31→20:16)
[2019-02-11] MEDS: cloNIDine 0.3 MG TAB PO SCH ×2 (09:31→20:15)
[2019-02-11] MEDS: Atenolol 25 MG TAB PO SCH (09:31)
[2019-02-11] MEDS: Gabapentin 300 MG CAP PO PRN (09:35)
[2019-02-11] MEDS: Ondansetron PF 4 MG/2 ML Vial IVP PRN (18:42)
[2019-02-11] MEDS: Enoxaparin Sodium 40 MG/0.4 ML SYRINGE SC SCH (20:16)
[2019-02-11] MEDS: Insulin Regular 300 UNITS/3 ML VIAL SC PRN (20:42)
[2019-02-12] MEDS: traMADol HCl 50 MG TAB PO PRN ×2 (01:34→01:54)
[2019-02-12] MEDS: hydrALAZINE 20 MG/ML VIAL SLOW IVP PRN ×4 (01:35→23:32)
[2019-02-12] MEDS: Promethazine HCl 25 MG/ML VIAL IM PRN ×2 (03:48→07:59)
[2019-02-12] MEDS: Levothyroxine Sodium 112 MCG TAB PO SCH (05:49)
[2019-02-12] MEDS: Insulin Regular 300 UNITS/3 ML VIAL SC PRN (05:56)
[2019-02-12] MEDS: Ondansetron PF 4 MG/2 ML Vial IVP PRN (07:52)
--- NOTE | 2019-02-12 08:55 | PDOC.GSPN ---
Surgery Progress Note: Subj - Subjective Narrative: Ms. Story is a 73 y/o female post operative day #3 from a lap assisted colectomy. She reports increased abdominal discomfort from yesterday. She has increased nausea and vomited a few times overnight. Nurses were having trouble setting up an IV site for her and she said that she may feel a little dehydrated this morning. Surgery Progress Note: Obj - Vital signs Vital signs: Vital Signs - Most Recent Temp Pulse Resp BP Pulse Ox 98.2 F 66 18 159/75 H 94 L 02/12/19 08:04 02/12/19 08:04 02/12/19 08:04 02/12/19 08:04 02/12/19 08:04 - Physical Exam General: moderate distress Respiratory: breath sounds present, other (No use of accessory muscles of respiration.) Abdomen: soft, distended, other (bowel sounds are present, but hypoactive.) Wound: dressing clean,dry,intact, other (No drainage or erythema.) Surgery Progress Note: Results - Labs Result Diagrams: 02/10/19 05:48 02/10/19 05:48 Lab results: Laboratory Results - last 24 hr 02/12/19 05:55 POC Glucose 153 H Surgery Progress Note: A/P - Plan Plan: Ms. Negron is 73 y/o female post operative day #3 from a lap assisted colectomy for a mass at the hepatic flexure. She has not ambulated and is having increased nausea and vomiting, likely due to post operative ileus. Plan is to restart her maintenance IVF of 1/2 NS w/ 20 mEq of KCL at 120 ml/hr. Restart meeks catheter. We will also plan to set up an NG tube for her to help with her nausea and vomiting. Patient has been encouraged to ambulate today as well. Addendum - Physician - Physician Attestation Date/Time: 02/12/19 7525 I personally performed or re-performed the physical examination and medical decision making. I have verified all student documentation or findings, including history, physical exam and/or medical decision making. Ileus recurred -NG LIWS -Meeks since she is so limited physically -Restart IVF
[2019-02-12] MEDS: Famotidine/PF 20 mg/2ml Vial SLOW IVP SCH ×2 (08:59→20:10)
[2019-02-12] MEDS: Famotidine 20 MG TAB PO SCH ×2 (08:59→20:11)
[2019-02-12] MEDS: Atenolol 25 MG TAB PO SCH (08:59)
[2019-02-12] MEDS: cloNIDine 0.3 MG TAB PO SCH ×2 (08:59→20:12)
[2019-02-12] MEDS ORDERED: Chloraseptic Spray 180 ml Bottle PO PRN (09:36)
[2019-02-12] MEDS: Fentanyl 100 MCG/2 ML VIAL SLOW IVP PRN (09:38)
[2019-02-12] MEDS: Sodium Chloride 0.9% 1,000 ML IV SCH ×2 (09:38→17:52)
[2019-02-12] MEDS: Acetaminophen 1,000 MG in Premix Bag 1 BAG IVPB PRN (14:10)
[2019-02-12] MEDS: Enoxaparin Sodium 40 MG/0.4 ML SYRINGE SC SCH (20:08)
[2019-02-13] MEDS: Sodium Chloride 0.9% 1,000 ML IV SCH ×2 (02:11→09:34)
[2019-02-13] MEDS: hydrALAZINE 20 MG/ML VIAL SLOW IVP PRN ×4 (03:48→20:46)
[2019-02-13] MEDS: Fentanyl 100 MCG/2 ML VIAL SLOW IVP PRN (03:49)
[2019-02-13 06:02] LABS: #Eosinphils 0.5 thou/uL (0.0-0.7); #Lymphocytes 1.5 thou/uL (1.20-3.40); #Monocytes 0.8 thou/uL (0.11-0.59); #Neutrophils 8.3 thou/uL (1.40-6.50); %Basophils 0.1 % (0.0-1.0); %Eosinophils 4.1 % (0.0-10.0); %Lymphocytes 13.5 % (21.0-51.0); %Monocytes 7.5 % (0.0-10.0); %Neutrophils 74.8 % (42.0-75.0); Hemoglobin 8.8 g/dL (12.0-16.0); Mean Corpuscular HGB CONC 31.8 g/dL (32.0-36.0); Mean Corpuscular Hemoglobin 24.1 pg (27.0-31.0); Mean Corpuscular Volume 75.8 fL (78.0-98.0); Mean Platelet Volume 8.2 fL (7.4-10.4); Platelet Count 279 thou/uL (130-400); RBC Distribution Width 16.6 % (11.5-14.5); Red Blood Cell (RBC) Count 3.65 mill/uL (4.20-5.40); White Blood Cell (WBC) Count 11.1 thou/uL (4.8-10.8)
[2019-02-13 06:22] LABS: Anion Gap 17 mmol/L (10-20); BUN (Urea Nitrogen) 9 mg/dL (9.8-20.1); Calc. Creatinine Clearance 120 mL/min (70-130); Calcium 8.8 mg/dL (7.8-10.44); Carbon Dioxide 21 mmol/L (23-31); Chloride 108 mmol/L (98-107); Estimated GFR-MDRD 83; Glucose 139 mg/dL (83-110); Sodium 142 mmol/L (136-145)
[2019-02-13] MEDS: Levothyroxine Sodium 112 MCG TAB PO SCH (06:26)
[2019-02-13] MEDS: Acetaminophen 1,000 MG in Premix Bag 1 BAG IVPB PRN (06:47)
--- NOTE | 2019-02-13 07:38 | PDOC.GSPN ---
Surgery Progress Note: Subj - Subjective Patient reports: nausea Narrative: Mrs. Negron is a 73 y/o female who is post-op day 4 after right hemicolectomy for mass resection. Patient is still very nauseous this morning with NG tube and rates her discomfort 3-4/10, however she does report she has had some relief with it and less bloating. She reports intermittent shortness of breath and a productive cough that she has to swallow, which she attributes to the continued nausea. NGT output at ~600 at bedside. She has not worked with PT yet as she felt too sick and nauseous to do so yesterday. PT will see her today. Patient is using spirometer intermittently. Ryder was d/c and patient is currently voiding in diaper as she is too weak to ambulate to the bathroom. Patient continues to have positive flatus. She denies chest pain, vomiting, dizziness, and bowel movement overnight. Surgery Progress Note: Obj - Vital signs Vital signs: Vital Signs - Most Recent Temp Pulse Resp BP Pulse Ox 98.6 F 68 16 195/64 H 94 L 02/13/19 03:30 02/13/19 03:48 02/13/19 03:30 02/13/19 03:48 02/13/19 03:30 - Physical Exam General: moderate distress ENT: normal mucosa, other (Face appears flushed.) Neck: no lymphadectomy, no masses Cardiovascular: regular rate and rhythm (Soft systolic murmur.) Respiratory: clear to auscultation (Slightly increased RR with episodes of dyspnea.), normal expansion Abdomen: soft, decreased bowel sounds, distended Wound: dressing clean,dry,intact, healing well (No signs of erythema or purulent discharge.) Surgery Progress Note: Results - Labs Result Diagrams: 02/13/19 05:49 02/13/19 05:49 Lab results: Laboratory Results - last 24 hr 02/09/19 02/12/19 02/13/19 12:11 20:23 05:41 WBC RBC Hgb Hct MCV MCH MCHC RDW Plt Count MPV Neutrophils % Lymphocytes % Monocytes % Eosinophils % Basophils % Neutrophils # Lymphocytes # Monocytes # Eosinophils # Basophils # Sodium Potassium Chloride Carbon Dioxide Anion Gap BUN Creatinine Estimated GFR (MDRD) Glucose POC Glucose 142 H 145 H Calcium Crossmatch See Detail 02/13/19 02/13/19 05:49 05:49 WBC 11.1 H RBC 3.65 L Hgb 8.8 L Hct 27.7 L MCV 75.8 L MCH 24.1 L MCHC 31.8 L RDW 16.6 H Plt Count 279 MPV 8.2 Neutrophils % 74.8 Lymphocytes % 13.5 L Monocytes % 7.5 Eosinophils % 4.1 Basophils % 0.1 Neutrophils # 8.3 H Lymphocytes # 1.5 Monocytes # 0.8 H Eosinophils # 0.5 Basophils # 0.0 Sodium 142 Potassium 4.0 Chloride 108 H Carbon Dioxide 21 L Anion Gap 17 BUN 9 L Creatinine 0.69 Estimated GFR (MDRD) 83 Glucose 139 H POC Glucose Calcium 8.8 Crossmatch Surgery Progress Note: A/P - Plan Plan: Mrs. Negron is a 73 y/o female who is post-op day 4 after right hemicolectomy for mass resection. Post-Op Day 4 ((Patient is in distress with nausea and post-operative ileus)) -Continue NGT today to aid with nausea control -NPO (ice chips okay) -Promote spirometery and work with PT as tolerated -Continue IVF -Ensure patient is receiving routine Zofran for nausea as patient reports relief until it wears off. -Monitor productive cough Addendum - Physician - Physician Attestation Date/Time: 02/13/19 5608 I personally performed or re-performed the physical examination and medical decision making. I have verified all student documentation or findings, including history, physical exam and/or medical decision making.
--- NOTE | 2019-02-13 08:50 | PDOC.GSPN ---
Surgery Progress Note: Subj - Subjective Patient reports: positive flatus, nausea, no bowel movement Surgery Progress Note: Obj - Vital signs Vital signs: Vital Signs - Most Recent Temp Pulse Resp BP Pulse Ox 98.6 F 75 18 192/68 H 92 L 02/13/19 07:26 02/13/19 07:26 02/13/19 07:26 02/13/19 07:26 02/13/19 07:26 - Physical Exam General: no distress Abdomen: decreased bowel sounds, distended Surgery Progress Note: Results - Labs Result Diagrams: 02/13/19 05:49 02/13/19 05:49 Lab results: Laboratory Results - last 24 hr 02/09/19 02/13/19 02/13/19 12:11 05:41 05:49 WBC RBC Hgb Hct MCV MCH MCHC RDW Plt Count MPV Neutrophils % Lymphocytes % Monocytes % Eosinophils % Basophils % Neutrophils # Lymphocytes # Monocytes # Eosinophils # Basophils # Sodium 142 Potassium 4.0 Chloride 108 H Carbon Dioxide 21 L Anion Gap 17 BUN 9 L Creatinine 0.69 Estimated GFR (MDRD) 83 Glucose 139 H POC Glucose 145 H Calcium 8.8 Crossmatch See Detail 02/13/19 05:49 WBC 11.1 H RBC 3.65 L Hgb 8.8 L Hct 27.7 L MCV 75.8 L MCH 24.1 L MCHC 31.8 L RDW 16.6 H Plt Count 279 MPV 8.2 Neutrophils % 74.8 Lymphocytes % 13.5 L Monocytes % 7.5 Eosinophils % 4.1 Basophils % 0.1 Neutrophils # 8.3 H Lymphocytes # 1.5 Monocytes # 0.8 H Eosinophils # 0.5 Basophils # 0.0 Sodium Potassium Chloride Carbon Dioxide Anion Gap BUN Creatinine Estimated GFR (MDRD) Glucose POC Glucose Calcium Crossmatch Surgery Progress Note: A/P - Problem (1) Mass of hepatic flexure of colon Current Visit: Yes Code(s): K63.89 - OTHER SPECIFIED DISEASES OF INTESTINE Status: Acute - Plan Plan: 73 F following lap assisted colectomy for mass resection, post op day 4 1. Continue NGT 2. Continue IV fluids 3. NPO (ice chips okay) 4. Give clonidine/atenolol for high blood pressure 5. Encourage spirometry 6. Monitor productive cough Addendum - Physician - Physician Attestation Date/Time: 02/13/19 0857 I personally performed or re-performed the physical examination and medical decision making. I have verified all student documentation or findings, including history, physical exam and/or medical decision making.
[2019-02-13] MEDS: Ondansetron PF 4 MG/2 ML Vial IVP PRN (09:34)
[2019-02-13] MEDS: Famotidine/PF 20 mg/2ml Vial SLOW IVP SCH ×2 (09:36→20:52)
[2019-02-13] MEDS: Famotidine 20 MG TAB PO SCH ×2 (10:04→20:47)
[2019-02-13] MEDS: Atenolol 25 MG TAB PO SCH ×2 (10:04→10:38)
[2019-02-13] MEDS: cloNIDine 0.3 MG TAB PO SCH ×3 (10:04→20:47)
[2019-02-13] MEDS: Enoxaparin Sodium 40 MG/0.4 ML SYRINGE SC SCH (20:47)
[2019-02-14] MEDS: Sodium Chloride 0.9% 1,000 ML IV SCH ×3 (01:08→13:25)
[2019-02-14 05:40] LABS: #Eosinphils 0.4 thou/uL (0.0-0.7); #Lymphocytes 1.5 thou/uL (1.20-3.40); #Monocytes 0.6 thou/uL (0.11-0.59); #Neutrophils 5.9 thou/uL (1.40-6.50); %Basophils 0.2 % (0.0-1.0); %Lymphocytes 17.4 % (21.0-51.0); %Monocytes 7.5 % (0.0-10.0); %Neutrophils 69.9 % (42.0-75.0); Hemoglobin 7.6 g/dL (12.0-16.0); Mean Corpuscular HGB CONC 31.7 g/dL (32.0-36.0); Mean Corpuscular Volume 75.7 fL (78.0-98.0); Mean Platelet Volume 8.1 fL (7.4-10.4); Platelet Count 243 thou/uL (130-400); RBC Distribution Width 16.8 % (11.5-14.5); Red Blood Cell (RBC) Count 3.16 mill/uL (4.20-5.40); White Blood Cell (WBC) Count 8.4 thou/uL (4.8-10.8)
[2019-02-14] MEDS: Levothyroxine Sodium 112 MCG TAB PO SCH (06:01)
[2019-02-14] MEDS: hydrALAZINE 20 MG/ML VIAL SLOW IVP PRN ×2 (06:01→16:08)
[2019-02-14 06:07] LABS: Anion Gap 14 mmol/L (10-20); BUN (Urea Nitrogen) 11 mg/dL (9.8-20.1); Calc. Creatinine Clearance 119 mL/min (70-130); Calcium 8.6 mg/dL (7.8-10.44); Carbon Dioxide 23 mmol/L (23-31); Chloride 109 mmol/L (98-107); Estimated GFR-MDRD 83; Glucose 126 mg/dL (83-110); Potassium 3.3 mmol/L (3.5-5.1); Sodium 143 mmol/L (136-145)
[2019-02-14] MEDS: Atenolol 25 MG TAB PO SCH (08:21)
[2019-02-14] MEDS: Famotidine/PF 20 mg/2ml Vial SLOW IVP SCH ×2 (08:21→20:38)
[2019-02-14] MEDS: cloNIDine 0.3 MG TAB PO SCH ×2 (08:21→20:40)
[2019-02-14] MEDS: Famotidine 20 MG TAB PO SCH ×2 (08:24→20:39)
--- NOTE | 2019-02-14 09:38 | PQF ---
ANDREI DE LA FUENTE BRYAN DAVID MD [id number] [facility] B- [id number] CLINICAL DOCUMENTATION IMPROVEMENT CLARIFICATION FORM: ICD-10 Updated PLEASE DO AN ADDENDUM TO THE PROGRESS NOTE WITH ANY DOCUMENTATION UPDATES OR ADDITIONS AND CARRY THROUGH TO DC SUMMARY. THANK YOU. DATE: 02/14, 02/15, 02/16 ATTN: DR. PAULA JARQUIN Please exercise your independent, professional judgment in responding to the clarification form. Clinical indicators are provided on the bottom of this form for your review. Please check appropriate box(s): [ ] Acute Renal Failure (ARF) / Acute Kidney Injury (MARIE) [ ] Acute Tubular Necrosis (ATN) [ ] Other Etiology or underlying conditions related to the diagnosis of ARF/ MARIE: [ ] Acute Interstitial Nephritis (AIN) [ ] Other: [ ] Acute on Chronic Renal Failure please specify Stage of CKD (see below) [ ] CKD without ARF/MARIE please specify Stage of CKD [ ] Other diagnosis [ ] Unable to determine In addition, please specify: Present on Admission (POA): [ ] Yes [ ] No [ ] Unable to determine National Kidney Foundation Guidelines for CKD Staging Stage I Kidney damage with normal or increased GFR GFR > 90 Stage II Kidney damage with mildly decreased GFR GFR 60-89 Stage III Kidney damage with moderately decreased GFR GFR 30-59 Stage IV Kidney damage with severely decreased GFR GFR 16-29 Stage V Kidney failure GFR<15 ESRD End Stage Renal Disease On dialysis Acute Renal Failure/Acute Kidney Failure defined as: Increases in SCr by (>) 0.3 mg/dl within 48 hours OR- Increases in SCr by (>) 1.5 times baseline, known or presumed to have occurred within the prior 7 days OR- Urine volume < 0.5 ml/kg/hour for 6 hours (KDIGO supplement 2012 for RIFLE/MARIA DEL ROSARIO criteria) For continuity of documentation, please document condition throughout progress notes and discharge summary. Thank You. CLINICAL INDICATORS - SIGNS / SYMPTOMS / LABS BUN: 17 CR: 0.82 GFR: 68 (02/03, LOCATED IN PHYSICAL CHART) 11 1.19 44 (02/10, LAB RESULTS IN EMR) 9 0.69 83 (02/13. LAB RESULTS IN EMR) 11 0.69 83 (02/14, LAB RESULTS IN EMR) RISKS: HX DM II (OFFICE H&P, 01/25/19) R HEMICOLECTOMY (OP REPORT 02/09) HX HTN (OFFICE H&P, 01/25/19) POST OP NAUSEA/VOMITING (PN & ) TREATMENT: SERIAL BASMET LABS (PHYSICIAN ORDER 02/10 - PRESENT) IVF (NS 02/09 - PRESENT, ELECTRONIC MAR) THANK YOU! Goldie (This form is maintained as a part of the permanent medical record) 2014 [employer]. All Rights Reserved Goldie Melton RN, BSN [email or web address] Office: [phone] [facility]
--- NOTE | 2019-02-14 09:44 | PQF ---
ANDREI DE LA FUENTE BRYAN DAVID MD [id number] [facility] B- [id number] CLINICAL DOCUMENTATION IMPROVEMENT CLARIFICATION FORM: ICD-10 Updated PLEASE DO AN ADDENDUM TO THE PROGRESS NOTE WITH ANY DOCUMENTATION UPDATES OR ADDITIONS AND CARRY THROUGH TO DC SUMMARY. THANK YOU. DATE: 02/14, 02/15. 02/16 ATTN: DR. PAULA JARQUIN Please exercise your independent, professional judgment in responding to the clarification form. Clinical indicators are provided on the bottom of this form for your review. Please check appropriate box(s): BMI > 40 with associated diagnosis of: (check one) [ ] Morbid (Severe) Obesity [ ] Due to excess calories [ ] with Alveolar Hypoventilation (Pickwickian syndrome) [ ] Overweight [ ] Obesity [ ] Other diagnosis [ ] Unable to determine In addition, please specify: Present on Admission (POA): [ ] Yes [ ] No [ ] Unable to Determine For continuity of documentation, please document condition throughout progress notes and discharge summary. Thank You. BMI < 19 Under weight 19 - 24.9 Healthy 25.0 - 29.9 Slightly Overweight 30.0 - 34.9 Obese 35.0 - 39.9 Severely Obese 40.0 and Over Morbidly Obese CLINICAL INDICATORS - SIGNS / SYMPTOMS / LABS BMI: 43.0 (DOCUMENTED WEIGHT ON ADMISSION 02/09) RISKS: HX DM II (OFFICE H&P, 01/25/19) PRETTY LIMITED MOBILITY AT BASELINE (PN 02/10-PRESENT) R HEMICOLECTOMY (OP REPORT, 02/09) TREATMENT: DAILY PHYSICAL THERAPY (PHYSICIAN ORDER 02/09 - PRESENT) ADD'L STAFF FOR TRANSFERS, REPOSITIONING (NURSING ADMISSION ASSESSMENT 02/09 - PRESENT) THANK YOU! Goldie (This form is maintained as a part of the permanent medical record) 2014 [employer]. All Rights Reserved Goldie Melton RN, BSN [email or web address] Office: [phone] [facility]ITAL[facility]
--- NOTE | 2019-02-14 12:56 | PDOC.GSPN ---
Surgery Progress Note: Subj - Subjective Patient reports: feels better, positive flatus Surgery Progress Note: Obj - Vital signs Vital signs: Vital Signs - Most Recent Temp Pulse Resp BP Pulse Ox 97.5 F L 60 18 166/65 H 93 L 02/14/19 11:10 02/14/19 11:56 02/14/19 11:10 02/14/19 11:56 02/14/19 11:10 - Physical Exam General: no distress Respiratory: clear to auscultation Abdomen: soft, appropriately tender, distended Wound: healing well Surgery Progress Note: Results - Labs Result Diagrams: 02/14/19 05:18 02/14/19 05:18 Lab results: Laboratory Results - last 24 hr 02/14/19 02/14/19 02/14/19 05:18 05:18 05:34 WBC 8.4 RBC 3.16 L Hgb 7.6 L Hct 24.0 L MCV 75.7 L MCH 24.0 L MCHC 31.7 L RDW 16.8 H Plt Count 243 MPV 8.1 Neutrophils % 69.9 Lymphocytes % 17.4 L Monocytes % 7.5 Eosinophils % 5.0 Basophils % 0.2 Neutrophils # 5.9 Lymphocytes # 1.5 Monocytes # 0.6 H Eosinophils # 0.4 Basophils # 0.0 Sodium 143 Potassium 3.3 L Chloride 109 H Carbon Dioxide 23 Anion Gap 14 BUN 11 Creatinine 0.69 Estimated GFR (MDRD) 83 Glucose 126 H POC Glucose 137 H Calcium 8.6 02/14/19 10:40 WBC RBC Hgb Hct MCV MCH MCHC RDW Plt Count MPV Neutrophils % Lymphocytes % Monocytes % Eosinophils % Basophils % Neutrophils # Lymphocytes # Monocytes # Eosinophils # Basophils # Sodium Potassium Chloride Carbon Dioxide Anion Gap BUN Creatinine Estimated GFR (MDRD) Glucose POC Glucose 131 H Calcium Surgery Progress Note: A/P - Problem (1) Mass of hepatic flexure of colon Current Visit: Yes Code(s): K63.89 - OTHER SPECIFIED DISEASES OF INTESTINE Status: Acute - Plan Plan: POD 5 -DC NG -clear liquids -cont to mobilize
[2019-02-14] MEDS: Enoxaparin Sodium 40 MG/0.4 ML SYRINGE SC SCH (20:39)
[2019-02-15] MEDS: Sodium Chloride 0.9% 1,000 ML IV SCH (03:11)
[2019-02-15] MEDS: Levothyroxine Sodium 112 MCG TAB PO SCH (05:11)
[2019-02-15] MEDS: Famotidine 20 MG TAB PO SCH ×2 (08:59→22:00)
[2019-02-15] MEDS: Famotidine/PF 20 mg/2ml Vial SLOW IVP SCH ×2 (09:00→22:00)
[2019-02-15] MEDS: Atenolol 25 MG TAB PO SCH (09:00)
[2019-02-15] MEDS: cloNIDine 0.3 MG TAB PO SCH ×2 (09:00→21:59)
[2019-02-15] MEDS ORDERED: Sodium Chloride 0.9% 1,000 ML IV SCH (11:25)
--- NOTE | 2019-02-15 11:27 | PDOC.GSPN ---
Surgery Progress Note: Subj - Subjective Patient reports: tolerating liquids well Narrative: No nausea. She is passing flatus Surgery Progress Note: Obj - Vital signs Vital signs: Vital Signs - Most Recent Temp Pulse Resp BP Pulse Ox 98.3 F 61 18 184/66 H 95 02/15/19 08:26 02/15/19 09:00 02/15/19 08:26 02/15/19 09:00 02/15/19 08:59 - Physical Exam General: no distress Cardiovascular: regular rate and rhythm Abdomen: soft, nondistended, appropriately tender Wound: healing well Surgery Progress Note: Results - Labs Result Diagrams: 02/14/19 05:18 02/14/19 05:18 Lab results: Laboratory Results - last 24 hr 02/15/19 05:21 POC Glucose 120 H Surgery Progress Note: A/P - Problem (1) Mass of hepatic flexure of colon Current Visit: Yes Code(s): K63.89 - OTHER SPECIFIED DISEASES OF INTESTINE Status: Acute - Plan Plan: POD 6 -Full liquids -To custodial tomorrow
[2019-02-15] MEDS: hydrALAZINE 20 MG/ML VIAL SLOW IVP PRN (18:01)
[2019-02-15] MEDS ORDERED: cloNIDine 0.3 MG TAB PO SCH (21:00)
[2019-02-15] MEDS: Enoxaparin Sodium 40 MG/0.4 ML SYRINGE SC SCH (21:59)
[2019-02-16] MEDS: hydrALAZINE 20 MG/ML VIAL SLOW IVP PRN (06:26)
[2019-02-16] MEDS: Levothyroxine Sodium 112 MCG TAB PO SCH (06:26)
[2019-02-16] MEDS: cloNIDine 0.3 MG TAB PO SCH (08:37)
[2019-02-16] MEDS: Atenolol 25 MG TAB PO SCH (08:38)
[2019-02-16] MEDS: Famotidine 20 MG TAB PO SCH (08:39)
[2019-02-16] MEDS: Famotidine/PF 20 mg/2ml Vial SLOW IVP SCH (08:40)
[2019-02-16] MEDS ORDERED: Furosemide 20 MG TAB PO SCH (09:00)
[2019-02-16] MEDS ORDERED: Escitalopram Oxalate 10 mg Tablet PO SCH (09:00)
[2019-02-16] MEDS ORDERED: Aspirin 81 mg Enteric Coated Tablet PO SCH (09:00)
[2019-02-16] MEDS: Insulin Regular 300 UNITS/3 ML VIAL SC PRN (12:44)
--- NOTE | 2019-02-16 13:32 | DIS ---
DATE OF ADMISSION: 02/09/2019 DATE OF DISCHARGE: 02/16/2019 ADMISSION DIAGNOSES: Hepatic flexure of colon mass, chronic deconditioning, expected postoperative ileus. DISCHARGE DIAGNOSES: Hepatic flexure of colon mass, chronic deconditioning, expected postoperative ileus. PROCEDURES: Laparoscopic hand assisted right colectomy by Dr. Torres without complication. CONDITION AT DISCHARGE: Stable. The patient going to detention. HOSPITAL COURSE: The patient's postop course was complicated by her chronic deconditioning. She did develop an postop ileus that was longer than expected. She had an NG placed temporarily. On the day of discharge she is doing well. She is tolerating diet. She is working with physical therapy. She is going to detention. She does have a T4 N1 MX colon cancer with no obvious node involvement, but a small nodule in the pericolonic fat. We will have her see the oncologist as an outpatient. Job ID: [id number]
[2019-02-16 16:32] VITALS: BP 189/62; TEMP 98.7
== END 2019-02-16 17:00 | DRG 330 ==
LOC: SURG A 02-09 06:53 → SURG B 02-09 14:37
PROVIDERS: ADMIT Surgery; ATTEND Surgery
PROC: 0DTF0ZZ Resection of Right Large Intestine, Open Approach (ICD-10-PCS; principal; 2019-02-09)
DX: C18.3 Malignant neoplasm of hepatic flexure (principal); K56.7 Ileus, unspecified; E03.9 Hypothyroidism, unspecified; E10.9 Type 1 diabetes mellitus without complications; I10 Essential (primary) hypertension; E78.5 Hyperlipidemia, unspecified; G47.33 Obstructive sleep apnea (adult) (pediatric); Z96.652 Presence of left artificial knee joint; Z91.040 Latex allergy status; Z88.0 Allergy status to penicillin; Z88.2 Allergy status to sulfonamides; Z88.8 Allergy status to other drugs, medicaments and biological substances; Z88.5 Allergy status to narcotic agent; Z88.1 Allergy status to other antibiotic agents; Z95.1 Presence of aortocoronary bypass graft
CPT/HCPCS: 36415; 36416; 80048; 85025; 86850; 86900; 86901; 88309; 88313; 88341; 88342; 88361; J0131; J0360; J0670; J0694; J1650; J1815; J2001; J2250; J2405; J2550; J2704; J3010; J3490; S0028

== ENCOUNTER 2019-04-11 13:36 | Outpatient (CLI) | payer MEDICARE ==
--- NOTE | 2019-04-11 15:09 | PET ---
Radionucleotide PET with CT attenuation correction HISTORY: Right colon cancer with hemicolectomy. Initial staging. FINDINGS: Physiologic uptake of radiotracer throughout the enteric system and along each urinary trac t. Infiltration of radiotracer noted at the right antecubital fossa. Postoperative changes of the right upper quadrant consistent with prior hemicolectomy. A focal mass a t the postoperative site shows a maximum SUV of 17.0. An oval hypermetabolic lesion between the pancreatic head and inferior vena cava has the appearance o f a lymph node with a maximum SUV 23.2. Lobular mass is now present along the far superior margin of the anterior midline abdominal wall inci aruna. Maximum SUV 34.6. Within the right liver lobe, there are 2 adjacent hypermetabolic lesions within the lateral aspect of the right liver lobe, maximum SUV 11.9 anteriorly and 5.2 posteriorly. A smaller lesion at the inferior tip of the right liver lobe maximum SUV 5.6. Within the superficial left lower quadrant anterior abdominal wall subcutaneous tissue, a small soft tissue density nodule shows increased uptake maximum SUV 11.3. Nondiagnostic CT attenuation correction images show the largest liver lesion, anterior abdominal wall lesion, peripancreatic lymph node, and subcutaneous mass within the lower anterior abdomen to have developed since the prior CT exam. IMPRESSION: Metastatic involvement of the liver, peripancreatic lymph node, anterior abdominal wall, and anterior lower abdominal subcutaneous tissues. Lesion at the postoperative bed also has the appearance of a local recurrence. CT images show significant morphologic change since prior CT abdomen from 01/20/2019.
== END 2019-04-11 13:37 | disposition home or self-care (01) ==
LOC: PET 13:36
PROVIDERS: ATTEND Internal Medicine Hematology & Oncology
DX: C18.9 Malignant neoplasm of colon, unspecified (principal); C78.7 Secondary malignant neoplasm of liver and intrahepatic bile duct; C77.2 Secondary and unspecified malignant neoplasm of intra-abdominal lymph nodes; C79.2 Secondary malignant neoplasm of skin; C79.89 Secondary malignant neoplasm of other specified sites
CPT/HCPCS: 78815; A9552; 88307

== ENCOUNTER 2019-04-19 12:04 | Day surgery (SDC) | payer MEDICARE ==
[2019-04-18 12:19] VITALS: BMI 42.4
[2019-04-19] MEDS ORDERED: Lidocaine 2% PF 5 ML VIAL ONE (14:16)
[2019-04-19] MEDS ORDERED: Bupivacaine/Epinephrine 0.25% 30 ML VIAL ONE (14:16)
[2019-04-19 14:19] LABS: CEA, Serum 7.58 ng/mL (< or = 5.0); Ferritin 23.86 ng/mL (10-291)
[2019-04-19] MEDS ORDERED: Famotidine/PF 20 mg/2ml Vial ONE (14:19)
[2019-04-19] MEDS ORDERED: Propofol 500 MG/50 ML VIAL ONE (14:19)
[2019-04-19] MEDS ORDERED: PROPOFOL 60 ML ONE (14:19)
[2019-04-19] MEDS ORDERED: Fentanyl 100 MCG/2 ML VIAL ONE (14:19)
[2019-04-19] MEDS ORDERED: Levofloxacin 500 mg/D5W 100 ml Premix Bag ONE (14:32)
[2019-04-19] MEDS ORDERED: hydrALAZINE 20 MG/ML VIAL ONE (15:52)
--- NOTE | 2019-04-19 15:53 | RAD ---
XR Chest 1 View HISTORY: Mediport placement COMPARISON: 01/11/2017 FINDINGS: There are changes of median sternotomy. Left-sided pacer device remains in place. The heart size is borderline. A right internal jugular Port-A-Cath has been placed with tip in the projection of the SVC. No pneumothoraces, lobar consolidation, anna pulmonary edema or large effusio ns are seen. There are postop changes of bilateral rotator cuff repair. IMPRESSION: No radiographic evidence of acute cardiopulmonary process.
--- NOTE | 2019-04-19 17:05 | OP ---
DATE OF PROCEDURE: 04/19/2019 PREOPERATIVE DIAGNOSIS: Colon cancer, metastatic. POSTOPERATIVE DIAGNOSIS: Colon cancer, metastatic. PROCEDURE PERFORMED: Tunneled central line with subcutaneous port (MediPort). ANESTHESIA: TIVA, local. ESTIMATED BLOOD LOSS: Minimal. COMPLICATIONS: None. FINDINGS: Tip of the catheter was at the atriocaval junction. DESCRIPTION OF PROCEDURE: The patient was taken to the operating room and laid supine on the operating room table. After sedation was obtained, bilateral neck and chest was prepped and draped in a sterile fashion. Local anesthetic was infiltrated over the right internal jugular vein. Internal jugular vein was cannulated using a 22-gauge fine needle followed by a Seldinger needle. Wire was passed into superior vena cava under fluoro guidance. A small taylor was made at the wire entrance site. A separate 4 cm incision was made in the right upper chest. Subcutaneous pocket was made below the lower incision. Tubing for the MediPort tunneled from the inferior to superior incision and suture sheath was placed over the wire into the superior vena cava under fluoro guidance. The dilator and wire removed and the end of the catheter sewed into the sheath. The sheath was peeled away. The tip of the catheter was at the atriocaval junction. MediPort tubing was cut to fit the MediPort with lower incision, connected to the MediPort which was sewn to the chest wall in the subcutaneous pocket using Prolene. The wound was irrigated. The MediPort flushed and alirio blood without difficulty and flushed with a heparin flush. The wounds were all irrigated and closed using 3-0 Vicryl, 4-0 Monocryl, and Dermabond. The patient was sent to Recovery in stable condition. All instrument counts, needle counts, and lap counts were correct. Job ID: [id number]
== END 2019-04-19 16:40 | disposition home or self-care (01) ==
LOC: SDC 12:04
PROVIDERS: ATTEND Surgery
PROC: 0JH63WZ Insertion of Totally Implantable Vascular Access Device into Chest Subcutaneous Tissue and Fascia, Percutaneous Approach (ICD-10-PCS; principal; 2019-04-19)
DX: C18.3 Malignant neoplasm of hepatic flexure (principal); C78.7 Secondary malignant neoplasm of liver and intrahepatic bile duct; G47.33 Obstructive sleep apnea (adult) (pediatric); E03.9 Hypothyroidism, unspecified; M19.90 Unspecified osteoarthritis, unspecified site; G89.29 Other chronic pain; M54.9 Dorsalgia, unspecified; F32.9 Major depressive disorder, single episode, unspecified; I10 Essential (primary) hypertension; E78.5 Hyperlipidemia, unspecified; I45.4 Nonspecific intraventricular block; E10.40 Type 1 diabetes mellitus with diabetic neuropathy, unspecified; M48.061 Spinal stenosis, lumbar region without neurogenic claudication; Z87.891 Personal history of nicotine dependence; Z79.84 Long term (current) use of oral hypoglycemic drugs; Z79.899 Other long term (current) drug therapy; Z88.0 Allergy status to penicillin; Z88.1 Allergy status to other antibiotic agents; Z88.2 Allergy status to sulfonamides; Z88.5 Allergy status to narcotic agent; Z88.6 Allergy status to analgesic agent; Z88.8 Allergy status to other drugs, medicaments and biological substances; Z91.018 Allergy to other foods; Z91.040 Latex allergy status; Z90.49 Acquired absence of other specified parts of digestive tract; Z95.0 Presence of cardiac pacemaker
CPT/HCPCS: 36561; 71045; 82378; 82728; 82962; C1788; 36416; J0360; J1642; J1956; J2001; J2704; J3010; S0028

== ENCOUNTER 2019-05-18 11:47 | Inpatient (IN) | payer MEDICARE ==
[2019-05-18] MEDS ORDERED: Ondansetron PF 4 MG/2 ML Vial ONE ×2 (12:02→18:05)
[2019-05-18 12:52] LABS: ALT (SGPT) 34 U/L (8-55); AST (SGOT) 34 U/L (5-34); Albumin 3.5 g/dL (3.4-4.8); Alkaline Phosphatase 147 U/L (40-110); Anion Gap 15 mmol/L (10-20); BUN (Urea Nitrogen) 16 mg/dL (9.8-20.1); Bilirubin, Total 0.5 mg/dL (0.2-1.2); Calc. Creatinine Clearance 0 mL/min (70-130); Calcium 9.8 mg/dL (7.8-10.44); Carbon Dioxide 24 mmol/L (23-31); Chloride 100 mmol/L (98-107); Estimated GFR-MDRD 46; Globulin 3.5 g/dL (2.4-3.5); Glucose 327 mg/dL (83-110); Magnesium 1.7 mg/dL (1.6-2.6); Potassium 3.5 mmol/L (3.5-5.1); Sodium 135 mmol/L (136-145)
[2019-05-18 13:26] LABS: #Eosinphils 0.2 thou/uL (0.0-0.7); #Lymphocytes 0.9 thou/uL (1.20-3.40); #Monocytes 0.4 thou/uL (0.11-0.59); %Basophils 0.4 % (0.0-1.0); %Eosinophils 3.2 % (0.0-10.0); %Lymphocytes 14.2 % (21.0-51.0); %Monocytes 6.4 % (0.0-10.0); %Neutrophils 75.8 % (42.0-75.0); Hemoglobin 10.4 g/dL (12.0-16.0); Mean Corpuscular HGB CONC 31.1 g/dL (32.0-36.0); Mean Corpuscular Hemoglobin 24.8 pg (27.0-31.0); Mean Corpuscular Volume 79.9 fL (78.0-98.0); Mean Platelet Volume 8.1 fL (7.4-10.4); Platelet Count 242 thou/uL (130-400); RBC Distribution Width 19.2 % (11.5-14.5); Red Blood Cell (RBC) Count 4.17 mill/uL (4.20-5.40); White Blood Cell (WBC) Count 6.6 thou/uL (4.8-10.8)
[2019-05-18] MEDS ORDERED: Iopamidol-370 76% 500 ML 1 ML ONE (13:44)
[2019-05-18] MEDS ORDERED: Promethazine HCl 25 MG/ML VIAL ONE (13:55)
--- NOTE | 2019-05-18 13:56 | RAD ---
RADIOGRAPH CHEST 1 VIEW: DATE: 05/18/2019 HISTORY: 74-year-old female with metastatic colon cancer presents with generalized weakness. COMPARISON: 04/19/2019 FINDINGS: There are no airspace densities, pulmonary edema, pneumothorax, or cardiomegaly. The lateral costophr enic angles are sharp. The previously demonstrated right internal jugular implantable vascular access port distal tip has migrated superiorly a distance of approximately 3 to 5 cm, and it now over lies the superior edge of the right clavicular head. Furthermore, this was traction has resulted in formation of a loop in the catheter in the right mid neck. The proximal port access heart remains in original position. Again noted are the sternotomy wires, bilateral humeral head metallic anchors, ORIF hardware at mid humerus, and left subclavian pacemaker. Thoracic aorta has atherosclerotic calci fication and is tortuous. IMPRESSION: 1. The right internal jugular implantable vascular access port tip has retracted, and a loop has form ed in the catheter at the right neck. 2. No acute cardiopulmonary findings. 3. Pacemaker. 4. Status post open heart surgery. 5. Ectasia and tortuosity of thoracic aorta.
[2019-05-18 15:45] LABS: Bilirubin Negative (Negative); Blood, Urine Negative (Negative); Clarity Clear (Clear); Glucose, Urine (Dipstick) 100 mg/dL (Negative); Leukocyte Negative Leu/uL (Negative); Nitrite Negative (Negative); Protein, Urine (Dipstick) 100 mg/dL (Neg-Trace); RBC/HPF 0-3 HPF (0-3); Squamous Epithelial 0-3 HPF (0-3)
[2019-05-18 15:46] LABS: Bacteria/HPF 1+ HPF (None Seen)
--- NOTE | 2019-05-18 15:58 | CT ---
CT ABDOMEN WITH CONTRAST CT PELVIS WITH CONTRAST: DATE: 05/18/2019 HISTORY: 74-year-old female with colon cancer and cancer of the vulva. Presents with nausea, vomiting, diarrhe a, and abdominal pain. COMPARISON: Attenuation correction CT for the PET scan of04/11/2019 TECHNIQUE: IV injection of iodinated contrast media: administered. Oral contrast media:Not administered FINDINGS: Mass at midline upper anterior abdominal wall with 2 components, one straddling the abdominal wall mu scles and protruding into the peritoneal cavity posteriorly, and subcutaneous fat anteriorly currently measures 5 x 5.5 x 7 cm. It has significantly grown. The mass component exophytically protr uding from the skin surface just ventral to that has also increased in size. Another mass in the subcutaneous fat of the left anterior subcutaneous fat pannus just anterior to th e lower portion of the left rectus abdominis muscle has also grown, to current dimensions of 2 x 1.5 x 4.5 cm. The residual or recurrent tumor mass at hepatic flexure of colon, at the site of suture line, has als o increased in size, currently measuring 4 x 6 x 4.5 cm, and anteriorly displaces the right anterior abdominal wall focally. 2 cm enhancing splenic nodule has not changed in size compared to CT of 01/20/[address] angiogram of 04/11/2017. This is consistent with a benign hemangioma of the spleen. No evidence of hepatic metastasis. Distended gallbladder without mural thickening or pericholecystic edema. At least 2 small mobile calcified gallstones. Ptotic right kidney with mild malrotation. Small sized left kidney. No hydronephrosis. No retroperitoneal, belinda hepatis, or mesenteric lymphadenopathy. No small bowel dilation. Normal urinary bladder, pancreas, and adrenals. No pleural effusion or consolidation at lung bases. Postsurgical changes of lumbar spine including laminectomies and pedicle screws. Thoracic and lumbar spondylosis. No ascites or pneumoperitoneum. No colonic diverticulitis.. IMPRESSION: 1. Interval increase in sizes of the metastatic neoplastic tumor mass is in the anterior abdominal wa ll and adjacent subcutaneous fat. 2. Cholelithiasis within a distended gallbladder. 3. Interval increase in size of residual or recurrent malignant tumor mass at the partial colectomy s ite at the region of hepatic flexure of colon. 4. Benign splenic hemangioma. 5. No acute findings.
[2019-05-18] MEDS ORDERED: Nitroglycerin 2% Ointment 1 INCH/1 GM Packet ONE (18:05)
[2019-05-18] MEDS ORDERED: cefTRIAXone\\ROCEPHIN 1 GM VIAL ONE (18:12)
--- NOTE | 2019-05-18 18:45 | PDOC.FPRHP ---
- History of Present Illness Chief Complaint: generalized weakness / lightheadedness History of Present Illness: Ms. Negron is a 74yo F who presented to the ED for genearalized weakness and intractable nausea/vomiting. She has colon cancer, s/p resection in 01/2019 with wound complications, and is currently undergoing chemo, last treatment Wednesday. She has been having nausea and vomiting since last Wednesday. Started feeling light headed couple days ago. She has had 1 episode of profuse, watery diarrhea earlier today. She is on chronic Keflex for infection in her leg in 2017 and to her knowledge she will take this indefinitely. She had a knee replacement that was compromised and became septic and significant history of recurrent cellulitis. ED Course: Rocephin 1g, Nitro 1 inch, Zofran 4mg, Phenergan 12.5mg, Zofran 4mg, - Allergies/Adverse Reactions Allergies Allergy/AdvReac Type Severity Reaction Status Date / Time Penicillins Allergy Severe FACIAL Verified 04/18/19 12:13 SWELLING clopidogrel bisulfate Allergy Intermediate pt doesn't Verified 04/18/19 12:13 [From Plavix] know coconut oil Allergy Intermediate severe Verified 04/18/19 12:13 nausea codeine Allergy Intermediate Severe Verified 04/18/19 12:13 stomach upset/vomiting ketorolac tromethamine Allergy Intermediate interfers Verified 04/18/19 12:13 [From Toradol] with kidney function Latex, Natural Rubber Allergy Intermediate Rash Verified 04/18/19 12:13 Sulfa (Sulfonamide Allergy Intermediate Rash Verified 04/18/19 12:13 Antibiotics) neomycin AdvReac Intermediate Nausea Verified 04/18/19 12:08 tizanidine AdvReac Intermediate CRAMPS Verified 04/18/19 12:13 COCONUT Allergy Intermediate Nausea Uncoded 04/18/19 12:13 - Home Medications Medication Instructions Recorded Confirmed Type Gabapentin 600 mg PO Q6HR PRN 08/23/14 05/18/19 History Atenolol [Tenormin] 75 mg PO QAM 08/07/17 05/18/19 History Simvastatin [Zocor] 40 mg PO QPM 08/07/17 05/18/19 History Tolterodine Tartrate [Tolterodine 4 mg PO DAILY 08/07/17 05/18/19 History Tartrate ER] Insulin Glargine,Hum.Rec.Anlog 35 units SQ QAM 08/10/17 05/18/19 History [Lantus] Insulin Glargine,Hum.Rec.Anlog 40 units SQ HS 08/10/17 05/18/19 History [Lantus] Cephalexin [Keflex] 500 mg PO Q12H #60 cap 09/29/17 05/18/19 Rx cloNIDine [Catapres] 0.3 mg PO BID 02/06/18 05/18/19 History Furosemide [Lasix] 20 mg PO QAM 01/17/19 05/18/19 History Insulin Aspart [Novolog] 8 unit SQ BID- 01/17/19 05/18/19 History Levothyroxine Sodium [Synthroid] 112 mcg PO QAM 01/17/19 05/18/19 History metFORMIN [Glucophage] 1,000 mg PO BID- 01/17/19 05/18/19 History Cholecalciferol (Vitamin D3) 2,000 unit PO DAILY 02/03/19 05/18/19 History [D3-2000] - History PMHx: Colon cancer (s/p surgery, on chemotherapy) Vulvar cancer (s/p surgery and radiation) DM II Hypothyrdoisim HLD HTN Depression PTSD PSHx: B/L Shoulders Right knee, Right humerus CABG x4 Left carotid stent Pacemaker Colon B/L cataracts Appendectomy Hysterectomy Tonsilectomy Back surg x 3 FHx: Social: Former tobacco use - quit > 10 years ago Denies alcohol or tobacco use. - Review of Systems General: reports: fever/chills, weight/appetite/sleep changes, fatigue. denies : night sweats Eyes: denies: eye pain, vision changes ENT: denies: nasal congestion, rhinorrhea Respiratory: denies: cough, congestion, shortness of breath Cardiovascular: reports: edema. denies: chest pain, palpitation Gastrointestinal: reports: nausea, vomiting, diarrhea, abdominal pain. denies: constipation, GI bleeding Genitourinary: denies: incontinence, dysuria Skin: denies: rashes, lesions Musculoskeletal: denies: pain, tenderness, stiffness Neurological: reports: weakness. denies: numbness, syncope - Vital signs BP: 159/80, Pulse: 63, Resp: 20, Temp: 97.9 (Oral), Pain: 6, O2 sat: 95 on ( Room Air), Time: 05/18/2019 18:00 - Physical Exam Constitutional: awake, alert and oriented -Constitutional: Ill appearing, actively vomiting HEENT: normocephalic and atraumatic, PERRLA, EOMI, conjunctiva clear, grossly normal vision, grossly normal hearing -HEENT: Dry mucus membranes Neck: supple, trachea midline Heart: RRR, normal S1/S2, no murmurs/rubs/gallops Lungs: CTAB, no respiratory distress, good air movement Abdomen: soft, bowel sounds present -Abdomen: TTP diffusely. Chronic wound in the midepigastrium. Musculoskeletal: normal structure, normal tone Neurological: no focal deficit -Skin: Erythema around stomach wound. Erythema on the RLE. Heme/Lymphatic: no unusual bruising or bleeding, no purpura, no petechia Psychiatric: normal mood and affect, good judgment and insight, intact recent and remote memory FMR H&P: Results - Labs Result Diagrams: 05/18/19 13:10 05/18/19 12:16 Lab results: WBC 6.6 thou/uL (4.8-10.8) 05/18/19 13:10 Hgb 10.4 g/dL (12.0-16.0) L 05/18/19 13:10 Hct 33.3 % (36.0-47.0) L 05/18/19 13:10 MCV 79.9 fL (78.0-98.0) 05/18/19 13:10 Plt Count 242 thou/uL (130-400) 05/18/19 13:10 Neutrophils % 75.8 % (42.0-75.0) H 05/18/19 13:10 Sodium 135 mmol/L (136-145) L 05/18/19 12:16 Potassium 3.5 mmol/L (3.5-5.1) 05/18/19 12:16 Chloride 100 mmol/L (98-107) 05/18/19 12:16 Carbon Dioxide 24 mmol/L (23-31) 05/18/19 12:16 BUN 16 mg/dL (9.8-20.1) 05/18/19 12:16 Creatinine 1.16 mg/dL (0.6-1.1) H 05/18/19 12:16 Glucose 327 mg/dL (83-110) H 05/18/19 12:16 Calcium 9.8 mg/dL (7.8-10.44) 05/18/19 12:16 Total Bilirubin 0.5 mg/dL (0.2-1.2) 05/18/19 12:16 AST 34 U/L (5-34) 05/18/19 12:16 ALT 34 U/L (8-55) 05/18/19 12:16 Alkaline Phosphatase 147 U/L (40-110) H 05/18/19 12:16 Serum Total Protein 7.0 g/dL (6.0-8.3) 05/18/19 12:16 Albumin 3.5 g/dL (3.4-4.8) 05/18/19 12:16 Lipase 31 U/L (8-78) 05/18/19 12:15 Urine Ketones Negative mg/dL (Negative) 05/18/19 15:18 Urine Blood Negative (Negative) 05/18/19 15:18 Urine Nitrite Negative (Negative) 05/18/19 15:18 Ur Leukocyte Esterase Negative Adela/uL (Negative) 05/18/19 15:18 Urine RBC 0-3 HPF (0-3) 05/18/19 15:18 Urine WBC 4-6 HPF (0-3) A 05/18/19 15:18 Ur Squamous Epith Cells 0-3 HPF (0-3) 05/18/19 15:18 Urine Bacteria 1+ HPF (None Seen) A 05/18/19 15:18 - Radiology Interpretation CT scan - abdomen Status: report reviewed by me (Mass at midline upper anterior abdominal wall with 2 components, one straddling the abdominal wall mu scles and protruding into the peritoneal cavity posteriorly, and subcutaneous fat anteriorly currently measures 5 x 5.5 x 7 cm. It has significantly grown. Another mass in the subcutaneous fat of the left anterior subcutaneous fat pannus just anterior to th e lower portion of the left rectus abdominis muscle has also grown, to current dimensions of 2 x 1.5 x 4.5 cm. IMPRESSION: 1. Interval increase in sizes of the metastatic neoplastic tumor mass is in the anterior abdominal wa ll and adjacent subcutaneous fat. 2. Cholelithiasis within a distended gallbladder. 3. Interval increase in size of residual or recurrent malignant tumor mass at the partial colectomy s ite at the region of hepatic flexure of colon. 4. Benign splenic hemangioma. 5. No acute findings) Chest x-ray Status: report reviewed by me (IMPRESSION: 1. The right internal jugular implantable vascular access port tip has retracted, and a loop has form ed in the catheter at the right neck. 2. No acute cardiopulmonary findings. 3. Pacemaker. 4. Status post open heart surgery. 5. Ectasia and tortuosity of thoracic aorta.) US - venous Status: report reviewed by me (No evidence for deep venous thrombosis. (RLE)) FMR H&P: A/P - Plan Intractable nausea and vomiting - Chemo side effect vs viral gastroenteritis vs cholelithiasis - IV Zofran and Phenergan ordered. Consider adding Reglan if nausea is not well controlled. - Will consult gen surg in the am for evaluation of cholelithiasis - C diff studies ordered to evaluate diarrhea Colon Cancer - currently undergoing chemotherapy. - will consult/notify oncologist tomorrow that patient is hospitalized. appreciate recommendations - Will consult palliative care for goals of therapy - CT abdomen / pelvis showed increasing size of metastasis Cellulitis - doppler negative for DVT - started on vancomycin for suspected cellulitis of RLE Diabetes Mellitus - continue home medications and insulin regimen + Moderate SSI - Accuchecks ACHS Hypothyroidism - TSH elevated, FT4 on lower end of normal - increased Levothyroxine to 150mcg HTN, HLD - continue home medications Disposition/LOS: Dispo: Stable Code: Full until family can be notified to make decision IV Fluids: LR 100mL/hr VTE: lovenox FMR H&P: Upper Level - Plan Date/Time: 05/18/191842 PCP: Jose Miguel Fabian, patient said TAMP in ED but has never been seen at [facility] clinic HPI: This is a 74 yo patient who comes in with 1 day of generalized weakness and malaise. She has had had worsening nausea and vomiting since her second round of chemotherapy last week. She states she had 1 episode of watery diarrhea earlier today. She is still tolerating some PO intake. She had a colon resection in January for metastatic colon cancer which then had wound dehiscence 2 weeks later. REVIEW OF SYSTEMS: Gen: subjective fever, no chills, or sweats Neuro: no numbness/tingling, no weakness, denies headache Eyes: no visual changes ENT: no hearing changes, no sore throat, no runny nose Resp: no cough, no SOB, no wheeze Card: denies chest pain, no palpitations GI: see hpi : no dysuria, no hematuria MSK: no myalgias, no joint pain/stiffness Heme: no easy bruising/bleeding, no blood thinners Skin: no rash, no erythema PHYSICAL EXAMINATION: General: NAD, alert and oriented x3 HEENT: PERRLA, EOMI, normal sclera, oropharynx without erythema or exudate Neck: Supple. Full ROM. Heart/Cardiovascular System: RRR, Cap refill < 3 seconds, no rub, no murmur Lungs/Respiratory System: clear to auscultation bilaterally. No increased work of breathing. Room air. Abdomen/Gastro-Intestinal System: open abdominal wound, mild drainage, does not appear erythematous or indurated, she is tender to palpation throughout the abdomen, no guarding or rebound, she is not distended Extremities: R leg has redness affecting the anterior winkler about 5cm by 4 cm, warm to touch as compared to left Neuro: No gross deficits appreciated. CN 2-12 grossly intact Psychiatry: Awake, Alert and cooperative with exam Skin: as above Musculoskeletal: Full ROM A/P: # RLE cellulitis - patient is on chronic Keflex, will start vancomycin - RLE Doppler negative for DVT - afebrile, blood cultures taken, WBC 6.6 # N/V related to chemotherapy - improved with Zofran - monitor # Cholelithiasis w/ distended gall bladder - ALP 147, RUQ tenderness - CT w/o mention of acute cholecystitis - Consider surgery eval in AM pending course # Metastatic Colon Cancer - Abdominal CT shows mets increasing in size - Patient will need f/u with surgery and oncology # Hypothydroism - check free T4, increase synthroid # DM - Home meds, sliding scale # Goals of care - Full code for now, family understands cancer is progressing would like to meet with oncology and palliative care teams - PT/OT/Rehab screen, likely deconditioning Fluids: LR 100ml/hr Code status: full PPx: lovenox Dispo: pending improvement of pain and nausea, may benefit from rehab
[2019-05-18] MEDS ORDERED: Communication Order-Pharmacy FS ONE (19:26)
[2019-05-18] MEDS ORDERED: Promethazine HCl 25 MG/ML VIAL IM/IV PRN (19:30)
[2019-05-18] MEDS ORDERED: Lactated Ringer's 1,000 ML IV SCH (19:45)
[2019-05-18] MEDS ORDERED: Dextrose 50% Abboject 50 ML SYRINGE SLOW IVP PRN (19:48)
[2019-05-18] MEDS ORDERED: Dextrose 5% in Water 1,000 ML IV PRN (19:48)
[2019-05-18] MEDS ORDERED: Gabapentin 300 MG CAP PO PRN (19:49)
--- NOTE | 2019-05-18 20:52 | ULT ---
EXAM: Right lower extremity venous duplex ultrasound with color and spectral Doppler imaging: HISTORY: Right lower extremity pain and edema, history of colon cancer surgery COMPARISON: None FINDINGS: Exam performed from the groin to the ankle including the visualized greater saphenous, common femoral , superficial femoral, profunda femoral, popliteal, trifurcation, and posterior tibial veins. There is phasic flow with normal compressibility and normal augmentation at all examined levels. No evidence for intraluminal thrombus. IMPRESSION: No evidence for deep venous thrombosis.
[2019-05-18] MEDS ORDERED: VANCOMYCIN HCL IVPB SCH (22:00)
[2019-05-18] MEDS ORDERED: SODIUM CHLORIDE 0.9% IVPB SCH (22:00)
[2019-05-18 22:07] VITALS: BMI 35.6
[2019-05-18] MEDS: cloNIDine 0.3 MG TAB PO SCH (22:31)
[2019-05-18] MEDS: Simvastatin 40 MG TAB PO SCH (22:31)
[2019-05-18] MEDS: Lactated Ringer's 1,000 ML IV SCH (22:32)
[2019-05-18] MEDS: Insulin Glargine 40 UNITS in Pre-Filled Syringe 1 EACH SC SCH (22:32)
[2019-05-19] MEDS ORDERED: Vancomycin 1.5 GRAM/300 ML BAG 1.5 GM in Premix Bag 1 BAG IVPB SCH (02:00)
[2019-05-19] MEDS: Levothyroxine 150 MCG TAB PO SCH (05:35)
[2019-05-19] MEDS: Ondansetron PF 4 MG/2 ML Vial IVP PRN (05:35)
--- NOTE | 2019-05-19 06:11 | PDOC.BPN ---
- Brief Progress Note Patient's PCP is Dr. Jose Miguel Fabian Transferred patient care to [facility] kristin [phone], spoke with Dr. Beatty
[2019-05-19 06:21] LABS: Hemoglobin 8.9 g/dL (12.0-16.0); Mean Corpuscular HGB CONC 32.6 g/dL (32.0-36.0); Mean Corpuscular Hemoglobin 25.6 pg (27.0-31.0); Mean Corpuscular Volume 78.5 fL (78.0-98.0); Mean Platelet Volume 8.3 fL (7.4-10.4); Platelet Count 243 thou/uL (130-400); RBC Distribution Width 19.1 % (11.5-14.5); Red Blood Cell (RBC) Count 3.47 mill/uL (4.20-5.40)
[2019-05-19 06:34] LABS: Anion Gap 14 mmol/L (10-20); BUN (Urea Nitrogen) 23 mg/dL (9.8-20.1); Calc. Creatinine Clearance 60 mL/min (70-130); Calcium 9.2 mg/dL (7.8-10.44); Carbon Dioxide 22 mmol/L (23-31); Chloride 102 mmol/L (98-107); Estimated GFR-MDRD 41; Glucose 231 mg/dL (83-110); Potassium 3.1 mmol/L (3.5-5.1); Sodium 135 mmol/L (136-145)
[2019-05-19] MEDS ORDERED: Potassium Chloride 20 MEQ TAB PO SCH (08:30)
[2019-05-19] MEDS ORDERED: Potassium Chloride 20 MEQ/100 ML PREMIX BAG IVPB SCH (08:30)
[2019-05-19] MEDS ORDERED: Trospium 20 MG TAB PO SCH (09:00)
[2019-05-19] MEDS: Atenolol 25 MG TAB PO SCH (09:29)
[2019-05-19] MEDS: metFORMIN 500 MG TAB PO SCH ×2 (09:29→17:21)
[2019-05-19] MEDS: cloNIDine 0.3 MG TAB PO SCH ×2 (09:30→20:16)
[2019-05-19] MEDS: Enoxaparin Sodium 40 MG/0.4 ML SYRINGE SC SCH (09:38)
[2019-05-19] MEDS: Lactated Ringer's 1,000 ML IV SCH ×2 (09:38→13:26)
[2019-05-19] MEDS: Insulin Glargine 35 UNITS in Pre-Filled Syringe 1 EACH SC SCH (10:20)
--- NOTE | 2019-05-19 13:17 | PDOC.PALCO ---
Palliative Care Consult - Consult Details Requesting Physician: Dr Anthony Reason for Consult: goals of care Family Members Present: - Pertinent HPI 74 year old female who presented to the emergency room for weakness and intractable nausea and vomiting. Patient a patient of Dr Diane for treatment of colon cancer (s/p resection 02/13) Last chemo was 05/12. Patient onset with nausea and vomiting Wednesday, with increase in weakness and feeling dizzy, episode of diarrhea 05/19. Patient seen and admitted for medical management. - Pertinent PMH Colon Cancer, Vulvar cancer, DM II, Hypothyroid, HDL, HTN, Depression, PTSD, right knee replacement with chronic cellulitis, CABG x 4, Left Carotid stent, Back surg x 3. - Social History Smoking Status: Former smoker Smoking: quit greater than 1 year Alcohol Use: none Drug Use History: none Living Situation: - Medications MAR Reviewed: Yes - Allergies Allergies/Adverse Reactions: Allergies Allergy/AdvReac Type Severity Reaction Status Date / Time Penicillins Allergy Severe FACIAL Verified 04/18/19 12:13 SWELLING clopidogrel bisulfate Allergy Intermediate pt doesn't Verified 04/18/19 12:13 [From Plavix] know coconut oil Allergy Intermediate severe Verified 04/18/19 12:13 nausea codeine Allergy Intermediate Severe Verified 04/18/19 12:13 stomach upset/vomiting ketorolac tromethamine Allergy Intermediate interfers Verified 04/18/19 12:13 [From Toradol] with kidney function Latex, Natural Rubber Allergy Intermediate Rash Verified 04/18/19 12:13 Sulfa (Sulfonamide Allergy Intermediate Rash Verified 04/18/19 12:13 Antibiotics) neomycin AdvReac Intermediate Nausea Verified 04/18/19 12:08 tizanidine AdvReac Intermediate CRAMPS Verified 04/18/19 12:13 COCONUT Allergy Intermediate Nausea Uncoded 04/18/19 12:13 - Subjective Patient resting, pronounced weakness, arousable speaks in a whisper. Continues with nausea. States abdominal pain in tolerable as long as "no one messes with it". - ROS Constitutional: alert, lethargic, weakness Cardiology: light headedness Gastrointestinal: abdominal pain, nausea, stomach discomfort Musculoskeletal: arthritis/arthralgias - Objective Vital Signs: Vital Signs - Most Recent Temp Pulse Resp BP Pulse Ox 98.3 F 60 16 151/56 H 94 L 05/19/19 08:40 05/19/19 09:29 05/19/19 08:40 05/19/19 09:30 05/19/19 08:40 Palliative Performance Scale: 40 - Physical Exam Constitutional: ill appearing HEENT: moist MMs, sclera anicteric Respiratory: unlabored breathing Cardiovascular: RRR Deviation from normal: Tenderness Musculoskeletal: edema present Neurology: moves all 4 limbs Deviation from normal: erythema to right lower ext. Pallor. Did not examin ab as per patient requ Psychiatric: depressed - Problem List (1) Palliative care encounter Code(s): Z51.5 - ENCOUNTER FOR PALLIATIVE CARE Current Visit: Yes Status: Acute (2) Nausea & vomiting Code(s): R11.2 - NAUSEA WITH VOMITING, UNSPECIFIED Current Visit: Yes Status : Acute (3) Mass of hepatic flexure of colon Code(s): K63.89 - OTHER SPECIFIED DISEASES OF INTESTINE Current Visit: No Status: Acute - Plan/Recommendations Plan: Initial contact with and patient. Identified financial stresses as was attempting to get a loan to have their car "fixed". Patient remains nauseated, will review medications. Teaching to ensure PRN as given as needed. May suggest Decadron 4mg/Benadryl/25mg/reglan 10mg if Zofran or Phenergan ordered does not mitigate nausea Initiated conversation in relation to resuscitation status. Will revisit after patient nausea/vomiting abated. Will follow up for discussion of goals of care after Oncology sees patient. [45] minutes spent on this encounter with >50% of the time in counseling and coordination of care. Thank you for this very appropriate consult.
--- NOTE | 2019-05-19 16:37 | PDOC.HOSPP ---
- Subjective Encounter Date: 05/19/19 Encounter Time: 16:34 Subjective: Ms. Negron was seen today in follow-up of severe nausea and vomiting. She also notes abdomial pain, but she says this is stable. She has advanced colon cancer , and has an enlarging abdominal mass. CY scan was noted, and there was no evidence of obstruction. She continues to have bowel movements, but these are loose and watery. - Objective Vital Signs & Weight: Vital Signs (12 hours) Temp Pulse Resp BP BP Pulse Ox 05/19/19 09:30 151/56 H 05/19/19 09:29 60 05/19/19 08:40 98.3 F 60 16 151/56 H 94 L Weight Admit Weight 220 lb 7.396 oz Weight 220 lb 7.396 oz I&O: 05/18/19 05/19/19 05/20/19 06:59 06:59 06:59 Intake Total 1300 Balance 1300 Result Diagrams: 05/19/19 05:34 05/19/19 05:34 Additional Labs: Accuchecks 05/19/19 05/19/19 05/18/19 12:33 05:37 21:50 POC Glucose 277 H 232 H 243 H Hospitalist ROS - Medication Medications: Active Medications Generic Name Dose Route Start Last Admin Trade Name Freq PRN Reason Stop Dose Admin Atenolol 75 mg 05/19/19 09:00 05/19/19 09:29 Tenormin PO 75 mg QAM SURI Administration Cholecalciferol 2,000 units 05/19/19 09:00 05/19/19 09:28 Vitamin D3 PO 2,000 units DAILY SURI Administration Clonidine 0.3 mg 05/18/19 21:00 05/19/19 09:30 Catapres PO 0.3 mg BID SURI Administration Enoxaparin Sodium 40 mg 05/19/19 09:00 05/19/19 09:38 Lovenox SC 40 mg 0900 SURI Administration Lactated Ringer's 1,000 mls @ 100 mls/hr 05/18/19 21:00 05/19/19 13:26 Lactated Ringer's IV 1,000 mls .Q10H SURI Administration Insulin Glargine 35 units/ 0.35 mls @ 0 mls/hr 05/19/19 09:00 05/19/19 10:20 Miscellaneous Medication SC 0.35 mls QAM SURI Administration Insulin Glargine 40 units/ 0.4 mls @ 0 mls/hr 05/18/19 21:00 05/18/19 22:32 Miscellaneous Medication SC 0.4 mls HS SURI Administration Levothyroxine Sodium 150 mcg 05/19/19 06:00 05/19/19 05:35 Synthroid PO 150 mcg 0600 SURI Administration Metformin HCl 1,000 mg 05/19/19 08:00 05/19/19 09:29 Glucophage PO 1,000 mg BID-WM SURI Administration Ondansetron HCl 4 mg 05/18/19 19:26 05/19/19 05:35 Zofran IVP 4 mg Q6H PRN Administration Nausea/Vomiting Simvastatin 40 mg 05/18/19 21:00 05/18/19 22:31 Zocor PO 40 mg QPM SURI Administration Sodium Chloride 10 ml 05/19/19 09:00 05/19/19 09:31 Flush - Normal Saline IVF Not Given Q12HR SURI - Exam Eye: PERRL Heart: RRR, no murmur, no gallops, no rubs, normal peripheral pulses Respiratory: CTAB, no wheezes, no rales, no ronchi, normal chest expansion Gastrointestinal: soft, normal bowel sounds (+ diffuse tenderness, and palpable abdominal mass), tender to palpation Extremities: no cyanosis, no clubbing, no edema Hosp A/P (1) Nausea & vomiting Code(s): R11.2 - NAUSEA WITH VOMITING, UNSPECIFIED Status: Acute (2) Atrial fibrillation Code(s): I48.91 - UNSPECIFIED ATRIAL FIBRILLATION Status: Chronic (3) Diabetes type 2, controlled Code(s): E11.9 - TYPE 2 DIABETES MELLITUS WITHOUT COMPLICATIONS Status: Chronic Qualifiers: Diabetes mellitus longterm insulin use: with intermediate project manager use Diabetes mellitus complication status: with unspecified complications Qualified Code(s) : E11.8 - Type 2 diabetes mellitus with unspecified complications; Z79.4 - intermediate project manager (current) use of insulin; Z79.4 - intermediate project manager (current) use of insulin; Z79.4 - intermediate project manager (current) use of insulin; Z79.4 - intermediate project manager (current) use of insulin (4) Hypertension Code(s): I10 - ESSENTIAL (PRIMARY) HYPERTENSION Status: Chronic - Plan * Nausea and vomiting- continue symptom relief with phenergan,and tramadol for pain * Palliative Care Consult appreciated, and will add Decadron and Benadryl- will schedule this for overnight - and then can change to PRN * DM- blood glucose is stable- continue Lantus, and Metformin as well as SSI * Contact isolation is for a prior hospitalization for C. Diff- awaiting the C. Diff toxin report * HTN- blood pressure is stable * AFIB- her heart rate is stable * Oncology consult for Prognosis and treatment going forward- would like to know
[2019-05-19] MEDS ORDERED: Metoclopramide HCl 10 MG/2 ML VIAL IVP PRN (16:48)
[2019-05-19] MEDS ORDERED: traMADol HCl 50 MG TAB PO PRN (17:41)
[2019-05-19] MEDS: diphenhydrAMINE 25 MG in Sodium Chloride 0.9% 50 ML IVPB SCH (20:15)
[2019-05-19] MEDS: Dexamethasone 4 mg/ml Vial SLOW IVP SCH (20:16)
[2019-05-19] MEDS: Simvastatin 40 MG TAB PO SCH (20:16)
[2019-05-19] MEDS: Insulin Glargine 40 UNITS in Pre-Filled Syringe 1 EACH SC SCH (23:57)
[2019-05-19] MEDS: Vancomycin HCl 1 GM in Premix Bag 1 BAG IVPB SCH (23:58)
[2019-05-19] MEDS: Loperamide HCl 2 MG CAP PO PRN (23:58)
[2019-05-20] MEDS: Dexamethasone 4 mg/ml Vial SLOW IVP SCH ×2 (01:41→05:30)
[2019-05-20] MEDS: diphenhydrAMINE 25 MG in Sodium Chloride 0.9% 50 ML IVPB SCH ×4 (01:41→18:15)
[2019-05-20] MEDS: HumaLOG 300 UNITS/3 ML VIAL SC PRN ×2 (05:33→12:21)
[2019-05-20] MEDS: Levothyroxine 150 MCG TAB PO SCH (05:33)
[2019-05-20] MEDS: hydrALAZINE 20 MG/ML VIAL SLOW IVP PRN (05:33)
[2019-05-20] MEDS: Lactated Ringer's 1,000 ML IV SCH ×2 (05:38→12:21)
[2019-05-20 06:24] LABS: #Lymphocytes 0.6 thou/uL (1.20-3.40); #Monocytes 0.2 thou/uL (0.11-0.59); %Eosinophils 0.6 % (0.0-10.0); %Lymphocytes 16.8 % (21.0-51.0); %Monocytes 3.9 % (0.0-10.0); %Neutrophils 78.8 % (42.0-75.0); Hemoglobin 9.5 g/dL (12.0-16.0); Mean Corpuscular HGB CONC 33.6 g/dL (32.0-36.0); Mean Corpuscular Hemoglobin 26.3 pg (27.0-31.0); Mean Corpuscular Volume 78.1 fL (78.0-98.0); Mean Platelet Volume 7.9 fL (7.4-10.4); Platelet Count 217 thou/uL (130-400); White Blood Cell (WBC) Count 3.8 thou/uL (4.8-10.8)
[2019-05-20 06:39] LABS: Anion Gap 11 mmol/L (10-20); BUN (Urea Nitrogen) 17 mg/dL (9.8-20.1); Calc. Creatinine Clearance 86 mL/min (70-130); Calcium 9.4 mg/dL (7.8-10.44); Carbon Dioxide 24 mmol/L (23-31); Chloride 104 mmol/L (98-107); Estimated GFR-MDRD 62; Glucose 247 mg/dL (83-110); Magnesium 1.7 mg/dL (1.6-2.6); Potassium 3.4 mmol/L (3.5-5.1); Sodium 136 mmol/L (136-145)
[2019-05-20] MEDS: Atenolol 25 MG TAB PO SCH (08:48)
[2019-05-20] MEDS: metFORMIN 500 MG TAB PO SCH ×2 (08:48→17:19)
[2019-05-20] MEDS: Enoxaparin Sodium 40 MG/0.4 ML SYRINGE SC SCH (08:49)
[2019-05-20] MEDS: cloNIDine 0.3 MG TAB PO SCH ×2 (08:49→20:40)
[2019-05-20] MEDS: Insulin Glargine 35 UNITS in Pre-Filled Syringe 1 EACH SC SCH (08:51)
[2019-05-20] MEDS: traMADol HCl 50 MG TAB PO PRN (09:03)
[2019-05-20] MEDS ORDERED: Dexamethasone 4 mg/ml Vial SLOW IVP PRN (10:39)
--- NOTE | 2019-05-20 13:34 | CON ---
DATE OF CONSULTATION: 05/20/2019 HISTORY OF PRESENT ILLNESS: Ms. Negron is a 74-year-old female, who came into the emergency room with generalized weakness and intractable nausea and vomiting. She has a history of rapidly progressive metastatic colon cancer, status post hemicolectomy in January of 2019 with complications including a mass growing out of the surgical wound in her abdomen. She has been on palliative chemotherapy. She received cycle #2 approximately 8 days prior to this admission. She has had increasing diarrhea and some incontinence. On the day prior to admission, she had a presyncopal episode while trying to shower. She feels marginally better today with the IV fluids. She continues to be somewhat nauseous, but no vomiting. She has some abdominal pain as well as loose stools. She feels overall very weak and has lost weight. She has no appetite. PAST MEDICAL HISTORY: 1. 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 2. Obesity. 3. History of vulvar cancer, status post surgery and radiation. 4. Diabetes mellitus, type 2. 5. Hypothyroidism. 6. Hyperlipidemia. 7. Hypertension. 8. Post-traumatic stress disorder with depression. CURRENT MEDICATIONS: 1. Tylenol p.r.n. 2. Tenormin 75 mg p.o. daily. 3. Vitamin D3 of 2000 units p.o. daily. 4. Clonidine 0.3 mg p.o. b.i.d. 5. Decadron 4 mg IV q.6 hours p.r.n. 6. Lovenox 40 mg subcu daily. 7. Gabapentin 600 mg p.o. q.6 hours p.r.n. 8. Hydralazine 10 mg IV q.6 hours p.r.n. 9. Synthroid 150 mcg p.o. daily. 10. Imodium 2 mg p.o. q.4 hours p.r.n. 11. Metformin 1000 mg p.o. b.i.d. 12. Reglan 10 mg IV q.6 hours p.r.n. 13. Zofran 4 mg IV q.6 hours p.r.n. 14. Phenergan 25 mg IV q.6 hours p.r.n. 15. Zocor 40 mg p.o. daily. 16. Ultram 50 mg p.o. q.4 hours p.r.n. 17. Tramadol 100 mg p.o. q.4 hours p.r.n. 18. Vancomycin 1 g IV q.12 hours. ALLERGIES: PENICILLIN, CLOPIDOGREL, COCONUT OIL, AND CODEINE. SOCIAL HISTORY: She is here with her and friend, who are quite supportive. She denies tobacco or alcohol use. FAMILY HISTORY: Noncontributory. REVIEW OF SYSTEMS: Otherwise, 10-point review of systems negative. Please see the History of Present Illness. PHYSICAL EXAMINATION: VITAL SIGNS: Temperature 98.5, pulse is 59, blood pressure 158/63, respirations 18, and O2 saturation 97% on room air. GENERAL: She is quite weak, in no acute distress, pleasant. HEENT: Extraocular muscles are intact. Sclerae are anicteric. NECK: Supple without lymphadenopathy. CARDIOVASCULAR: Regular rhythm. LUNGS: Clear to auscultation bilaterally. ABDOMEN: Hypoactive bowel sounds. Soft. She does have a mass in the midline, where the surgical wound is, which is somewhat tender. EXTREMITIES: No edema. No clubbing. LABORATORY DATA: White blood cell count 3.8, hemoglobin 9.5, and platelets 217. Her electrolytes are normal with the exception of potassium of 3.4 and a glucose of 247. IMAGING DATA: CT scan done in the emergency room on the day of admission shows interval increase in size in the metastatic tumor in the anterior abdominal wall and adjacent subcutaneous fat as well as increase in size of the residual or recurrent malignancy or mass in the partial colectomy site at the region of the hepatic flexure. ASSESSMENT: Ms. Negron is a 74-year-old female with; 1. Metastatic rapidly progressive adenocarcinoma of the colon. 2. Diarrhea and nausea and vomiting secondary to tumor and chemotherapy. 3. Weakness secondary to malnutrition and the above. PLAN: 1. We discussed the prognosis. They understand that this is incurable and that her prognosis overall is somewhat poor. I do think many of her symptoms are acutely from the chemotherapy and some may improve over the next few days. 2. I have recommended that she consider being a DNR, but for now, she is a full code. 3. I did discuss with her holding next weeks chemotherapy and giving her a chance to improve, I would recommend if she is improving as she gets out from this chemotherapy that she discharged to follow up with us in the office to further discuss whether or not she wants any more treatment. 4. We did discuss hospice, but I do not think she is ready for this at this time. 5. I think she is deconditioned and might benefit from long term or swing bed if she does not want hospice care. 6. All this was discussed with her and I do appreciate the Palliative Care Teams help. They are also seeing her. Job ID: [id number]
--- NOTE | 2019-05-20 19:55 | PDOC.HOSPP ---
- Subjective Encounter Date: 05/20/19 Encounter Time: 12:00 Subjective: The patient's nausea and vomiting have improved. She has only mild abdominal pain. She did not participate in PT today. States that she has decided to go forward with hospice and wants to move towards [facility]. Last chemotherapy made her extremely weak - Objective Vital Signs & Weight: Vital Signs (12 hours) Temp Pulse Resp BP BP Pulse Ox 05/20/19 15:00 98 F 60 18 157/61 H 97 05/20/19 10:40 98.5 F 59 L 18 159/55 H 97 05/20/19 08:49 158/63 H 05/20/19 08:48 70 158/63 H 05/20/19 08:00 93 L Weight Admit Weight 220 lb 7.396 oz Weight 220 lb 7.396 oz I&O: 05/19/19 05/20/19 05/21/19 06:59 06:59 06:59 Intake Total 1300 3140 1500 Balance 1300 3140 1500 Result Diagrams: 05/20/19 05:58 05/20/19 05:58 Additional Labs: Accuchecks 05/20/19 05/20/19 05/20/19 16:13 11:39 05:33 POC Glucose 187 H 215 H 241 H 05/19/19 22:35 POC Glucose 153 H Hospitalist ROS - Review of Systems Constitutional: denies: fever, chills Cardiovascular: denies: chest pain, palpitations Genitourinary: denies: dysuria, frequency - Medication Medications: Active Medications Generic Name Dose Route Start Last Admin Trade Name Christy PRN Reason Stop Dose Admin Atenolol 75 mg 05/19/19 09:00 05/20/19 08:48 Tenormin PO 75 mg QAM [facility] Administration Cholecalciferol 2,000 units 05/19/19 09:00 05/20/19 08:49 Vitamin D3 PO 2,000 units DAILY [facility] Administration Clonidine 0.3 mg 05/18/19 21:00 05/20/19 08:49 Catapres PO 0.3 mg BID [facility] Administration Enoxaparin Sodium 40 mg 05/19/19 09:00 05/20/19 08:49 Lovenox SC 40 mg 0900 [facility] Administration Hydralazine HCl 10 mg 05/20/19 04:11 05/20/19 05:33 Apresoline SLOW IVP 10 mg Q6H PRN Administration SBP GREATER THAN 160 Lactated Ringer's 1,000 mls @ 100 mls/hr 05/18/19 21:00 05/20/19 12:21 Lactated Ringer's IV 1,000 mls .Q10H [facility] Administration Insulin Glargine 35 units/ 0.35 mls @ 0 mls/hr 05/19/19 09:00 05/20/19 08:51 Miscellaneous Medication SC Not Given QAM [facility] Insulin Glargine 40 units/ 0.4 mls @ 0 mls/hr 05/18/19 21:00 05/19/19 23:57 Miscellaneous Medication SC 0.4 mls HS [facility] Administration Vancomycin HCl 1 gm/ Device 200 mls @ 200 mls/hr 05/19/19 23:59 05/19/19 23: 58 IVPB 200 mls 2359 [facility] Administration Diphenhydramine HCl 25 mg/ 50.5 mls @ 150 mls/hr 05/19/19 18:00 05/20/19 18: 15 Sodium Chloride IVPB 50.5 mls Q6HR [facility] Administration Insulin Human Lispro 0 units 05/18/19 19:48 05/20/19 12:21 Humalog SC 4 unit .MODERATE SLIDING SC PRN Administration Moderate Correctional Scale Levothyroxine Sodium 150 mcg 05/19/19 06:00 05/20/19 05:33 Synthroid PO 150 mcg 0600 [facility] Administration Loperamide HCl 2 mg 05/19/19 17:43 05/19/19 23:58 Imodium PO 2 mg DAILYPRN PRN Administration Diarrhea/Loose Stools Metformin HCl 1,000 mg 05/19/19 08:00 05/20/19 17:19 Glucophage PO 1,000 mg BID-WM [facility] Administration Ondansetron HCl 4 mg 05/18/19 19:26 05/19/19 05:35 Zofran IVP 4 mg Q6H PRN Administration Nausea/Vomiting Simvastatin 40 mg 05/18/19 21:00 05/19/19 20:16 Zocor PO 40 mg QPM [facility] Administration Sodium Chloride 10 ml 05/19/19 09:00 05/20/19 09:08 Flush - Normal Saline IVF Not Given Q12HR [facility] Tramadol HCl 100 mg 05/19/19 17:41 05/20/19 09:03 Ultram PO 100 mg Q4H PRN Administration Severe Pain (7-10) - Exam General Appearance: NAD, awake alert General - other findings: Obese Eye: PERRL, anicteric sclera ENT: normocephalic atraumatic, no oropharyngeal lesions Neck: supple, symmetric, no JVD, no thyromegaly Heart: RRR, no murmur, no gallops, no rubs Respiratory: CTAB, no wheezes, no rales, no ronchi Gastrointestinal: soft, non-tender, non-distended, normal bowel sounds Extremities: no cyanosis, no clubbing, no edema Skin: normal turgor, no lesions, no rashes Neurological: cranial nerve grossly intact, normal sensation to touch, no focal deficits, no new deficit Musculoskeletal: normal tone, normal strength, no muscle wasting Psychiatric: normal affect, normal behavior, A&O x 3, oriented to person, oriented to place, oriented to time Hosp A/P - Plan This is a 74 year old female with metastatic stage IV colon cancer/ s/p recent hemicolectomy in 2019 Metastatic colon cancer - patient states she is no longer interested in further chemotherapy -appreciate palliative care recs since patient is interested in hospice. Per Dr. Diane however she did not think patient was ready Nausea/vomiting - improved with benadryl Hypokalemia - potassium 3.4, continue 40 meq potassium Leukopenia Anemia - likely from chemotherapy - WBC low - HB 9.5, stable, continue to monitor Hypothyroidism - continue levothyroxine Hyperlipidemia - continue statin Type II diabetes - lantus 35 units qam and 40 units qhs - on metformin Physical deconditioning - patient refusinG PT DIspo: patient is looking into hospice Code status: full c ode
[2019-05-20] MEDS ORDERED: Potassium Chloride 20 MEQ TAB PO SCH (20:00)
[2019-05-20] MEDS: Simvastatin 40 MG TAB PO SCH (20:41)
[2019-05-20] MEDS: Insulin Glargine 40 UNITS in Pre-Filled Syringe 1 EACH SC SCH (20:42)
[2019-05-21 00:14] LABS: Vancomycin, Trough 10.5 ug/mL
[2019-05-21] MEDS: diphenhydrAMINE 25 MG in Sodium Chloride 0.9% 50 ML IVPB SCH ×2 (00:50→06:04)
[2019-05-21] MEDS: Loperamide HCl 2 MG CAP PO PRN ×2 (00:50→14:49)
[2019-05-21] MEDS: Lactated Ringer's 1,000 ML IV SCH ×4 (00:52→20:45)
[2019-05-21] MEDS ORDERED: Vancomycin 1.5 GRAM/300 ML BAG 1.5 GM in Premix Bag 1 BAG IVPB SCH (01:00)
[2019-05-21] MEDS: Vancomycin HCl 1 GM in Premix Bag 1 BAG IVPB SCH (02:54)
[2019-05-21] MEDS: Levothyroxine 150 MCG TAB PO SCH (06:04)
[2019-05-21 06:32] LABS: Hemoglobin 9.1 g/dL (12.0-16.0); Mean Corpuscular HGB CONC 32.4 g/dL (32.0-36.0); Mean Corpuscular Hemoglobin 25.5 pg (27.0-31.0); Mean Corpuscular Volume 78.8 fL (78.0-98.0); Mean Platelet Volume 7.7 fL (7.4-10.4); Platelet Count 252 thou/uL (130-400); RBC Distribution Width 19.3 % (11.5-14.5); Red Blood Cell (RBC) Count 3.55 mill/uL (4.20-5.40); White Blood Cell (WBC) Count 3.7 thou/uL (4.8-10.8)
[2019-05-21 06:47] LABS: ALT (SGPT) 38 U/L (8-55); AST (SGOT) 40 U/L (5-34); Albumin 2.8 g/dL (3.4-4.8); Alkaline Phosphatase 124 U/L (40-110); Anion Gap 12 mmol/L (10-20); BUN (Urea Nitrogen) 14 mg/dL (9.8-20.1); Bilirubin, Total 0.2 mg/dL (0.2-1.2); Calc. Creatinine Clearance 97 mL/min (70-130); Carbon Dioxide 23 mmol/L (23-31); Chloride 107 mmol/L (98-107); Estimated GFR-MDRD 71; Globulin 2.9 g/dL (2.4-3.5); Glucose 116 mg/dL (83-110); Protein, Total 5.7 g/dL (6.0-8.3); Sodium 139 mmol/L (136-145)
--- NOTE | 2019-05-21 08:24 | PDOC.MOPN ---
Interval History: she is having more pain but it is controlled with pain meds. she has decided she wants to move forward with hospice discussions - Vital Signs Vital Signs: Vital Signs (12 hours) Temp Pulse Resp BP BP Pulse Ox 05/21/19 04:15 97.7 F 59 L 16 161/66 H 96 05/21/19 00:13 98.3 F 60 16 159/62 H 99 05/20/19 20:40 194/66 H Weight Admit Weight 220 lb 7.396 oz Weight 220 lb 7.396 oz - Physical Exam General: Alert, No acute distress HEENT: Atraumatic Lungs: Clear to auscultation Cardiovascular: Regular rate Abdomen: Normal bowel sounds, Other (mass ,firm, growing outnof abdominal surgical wound) Extremities: No clubbing Neurological: Normal speech Psych/Mental Status: Mental status NL - Labs Result Diagrams: 05/21/19 06:18 05/21/19 06:18 Lab results: Laboratory Results - last 24 hr 05/21/19 06:18: WBC 3.7 L, RBC 3.55 L, Hgb 9.1 L, Hct 28.0 L, MCV 78.8, MCH 25.5 L, MCHC 32.4, RDW 19.3 H, Plt Count 252, MPV 7.7 05/21/19 06:18: Sodium 139, Potassium 3.0 L, Chloride 107, Carbon Dioxide 23, Anion Gap 12, BUN 14, Creatinine 0.79, Estimated GFR (MDRD) 71, Glucose 116 H, Calcium 9.0, Total Bilirubin 0.2, AST 40 H, ALT 38, Alkaline Phosphatase 124 H, Serum Total Protein 5.7 L, Albumin 2.8 L, Globulin 2.9, Albumin/Globulin Ratio 1.0 L 05/21/19 05:57: POC Glucose 116 H 05/20/19 23:46: Vancomycin Trough 10.5 05/20/19 20:18: POC Glucose 166 H 05/20/19 16:13: POC Glucose 187 H 05/20/19 11:39: POC Glucose 215 H A/P - Problem (1) 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 we discussed code status again and she would like to be a DNAR 2. she wants to stop treatment and consider hospice, i will consult them to come tomorrow 3. continue narcotics 4. cont IVF for now
[2019-05-21] MEDS: cloNIDine 0.3 MG TAB PO SCH ×2 (08:51→20:42)
[2019-05-21] MEDS: Enoxaparin Sodium 40 MG/0.4 ML SYRINGE SC SCH (08:52)
[2019-05-21] MEDS: Insulin Glargine 35 UNITS in Pre-Filled Syringe 1 EACH SC SCH (08:52)
[2019-05-21] MEDS: metFORMIN 500 MG TAB PO SCH ×2 (08:53→17:00)
[2019-05-21] MEDS: Atenolol 25 MG TAB PO SCH (08:53)
[2019-05-21] MEDS ORDERED: Potassium Chloride 20 MEQ TAB PO SCH (11:15)
[2019-05-21] MEDS ORDERED: diphenhydrAMINE 50 MG/ML VIAL IVP PRN (11:36)
[2019-05-21] MEDS ORDERED: Potassium Chloride 10 MEQ/100 ML PREMIX BAG IVPB SCH (11:45)
[2019-05-21] MEDS: hydrALAZINE 20 MG/ML VIAL SLOW IVP PRN (12:22)
[2019-05-21] MEDS ORDERED: Potassium Chloride 40 MEQ in Sodium Chloride 0.9% 250 ML 250 ML IVPB SCH (12:45)
[2019-05-21] MEDS: traMADol HCl 50 MG TAB PO PRN (14:44)
[2019-05-21] MEDS ORDERED: Amlodipine 5 MG TAB PO SCH (15:45)
[2019-05-21] MEDS: Simvastatin 40 MG TAB PO SCH (20:43)
[2019-05-21] MEDS: Insulin Glargine 40 UNITS in Pre-Filled Syringe 1 EACH SC SCH (20:46)
[2019-05-21] MEDS: Acetaminophen 325 MG TAB PO PRN (20:46)
--- NOTE | 2019-05-21 20:50 | PDOC.HOSPP ---
- Subjective Encounter Date: 05/21/19 Encounter Time: 16:00 Subjective: Patient continues to have abdominal pain. Denies nausea or vomiting. Still interested in moving forward with hospice. She reports some diarrhea for the past couple of days. Reports she was started on antibiotics for rash on right leg, however she thinks this is chronic and not painful and no different from her baseline. - Objective Vital Signs & Weight: Vital Signs (12 hours) Temp Pulse Resp BP BP Pulse Ox 05/21/19 19:30 100 F H 68 16 166/93 H 95 05/21/19 16:10 98.8 F 63 18 181/62 H 96 05/21/19 15:40 64 178/69 H 05/21/19 12:22 60 185/75 H 05/21/19 12:08 98.7 F 60 18 185/75 H 96 05/21/19 08:53 60 178/64 H 05/21/19 08:51 170/64 H Weight Admit Weight 220 lb 7.396 oz Weight 220 lb 7.396 oz I&O: 05/20/19 05/21/19 05/22/19 06:59 06:59 06:59 Intake Total 3140 2700 1500 Balance 3140 2700 1500 Result Diagrams: 05/21/19 06:18 05/21/19 06:18 Additional Labs: Accuchecks 05/21/19 05/21/19 05/21/19 20:29 16:24 10:58 POC Glucose 119 H 117 H 132 H 05/21/19 05:57 POC Glucose 116 H Hospitalist ROS - Review of Systems Constitutional: denies: fever, chills - Medication Medications: Active Medications Generic Name Dose Route Start Last Admin Trade Name Tayeq PRN Reason Stop Dose Admin Atenolol 75 mg 05/19/19 09:00 05/21/19 08:53 Tenormin PO 75 mg QAM [facility] Administration Cholecalciferol 2,000 units 05/19/19 09:00 05/21/19 08:51 Vitamin D3 PO Not Given DAILY [facility] Clonidine 0.3 mg 05/18/19 21:00 05/21/19 08:51 Catapres PO 0.3 mg BID [facility] Administration Enoxaparin Sodium 40 mg 05/19/19 09:00 05/21/19 08:52 Lovenox SC Not Given 0900 [facility] Hydralazine HCl 10 mg 05/20/19 04:11 05/21/19 12:22 Apresoline SLOW IVP 10 mg Q6H PRN Administration SBP GREATER THAN 160 Insulin Glargine 35 units/ 0.35 mls @ 0 mls/hr 05/19/19 09:00 05/21/19 08:52 Miscellaneous Medication SC Not Given QAM [facility] Insulin Glargine 40 units/ 0.4 mls @ 0 mls/hr 05/18/19 21:00 05/20/19 20:42 Miscellaneous Medication SC Not Given HS [facility] Insulin Human Lispro 0 units 05/18/19 19:48 05/20/19 12:21 Humalog SC 4 unit .MODERATE SLIDING SC PRN Administration Moderate Correctional Scale Levothyroxine Sodium 150 mcg 05/19/19 06:00 05/21/19 06:04 Synthroid PO Not Given 0600 [facility] Loperamide HCl 2 mg 05/19/19 17:43 05/21/19 14:49 Imodium PO 2 mg DAILYPRN PRN Administration Diarrhea/Loose Stools Metformin HCl 1,000 mg 05/19/19 08:00 05/21/19 17:00 Glucophage PO Not Given BID-WM [facility] Ondansetron HCl 4 mg 05/18/19 19:26 05/19/19 05:35 Zofran IVP 4 mg Q6H PRN Administration Nausea/Vomiting Simvastatin 40 mg 05/18/19 21:00 05/20/19 20:41 Zocor PO 40 mg QPM [facility] Administration Sodium Chloride 10 ml 05/19/19 09:00 05/21/19 09:56 Flush - Normal Saline IVF Not Given Q12HR [facility] Tramadol HCl 100 mg 05/19/19 17:41 05/21/19 14:44 Ultram PO 100 mg Q4H PRN Administration Severe Pain (7-10) - Exam General Appearance: NAD, awake alert Eye: PERRL, anicteric sclera ENT: normocephalic atraumatic, no oropharyngeal lesions Neck: supple, symmetric, no JVD, no thyromegaly Heart: RRR, no murmur, no gallops, no rubs Respiratory: CTAB, no wheezes, no rales, no ronchi Gastrointestinal: soft, non-distended, normal bowel sounds Gastrointestinal - other findings: epigastric tenderness Extremities: no cyanosis, no clubbing Skin - other findings: mild rash on right lower winkler, nontender, not warm Neurological: cranial nerve grossly intact, normal sensation to touch, no focal deficits, no new deficit Hosp A/P - Plan CT abdomen: interval increase in size of metastatic tumor mass in anterior abdominal wall. Cholelithiasis with distended gallbadder. Interval increase in size of recurrent malignant tumor mass at partial colectomy site. Benign splenic hemangioam This is a 74 year old female with metastatic stage IV colon cancer/ s/p recent hemicolectomy in 2019 Metastatic colon cancer - patient states she is no longer interested in further chemotherapy -appreciate palliative care recs since patient is interested in hospice. Per Dr. Diane however she did not think patient was ready Distended gallbladder - improved with benadryl, switch to prn - LFTS trending up, will switch from vancomycin to possible meropenem. Monitor for any allergic reaction - surg consult for addie tube if patient interested. Consult pending Hypokalemia - secondary to diarrhea - potassium 3.0, continue 40 meq potassium Leukopenia Anemia - likely from chemotherapy - WBC low - HB 9.5, stable, continue to monitor Hypothyroidism - continue levothyroxine Hyperlipidemia - continue statin Type II diabetes - lantus 35 units qam and 40 units qhs - on metformin Physical deconditioning - patient refusinG PT DIspo: patient is looking into hospice Code status: full c ode
[2019-05-21] MEDS ORDERED: Meropenem 2 GM, Admixture Fee 1 EACH in Sodium Chloride 0.9% 100 ML IVPB SCH (22:00)
[2019-05-22] MEDS: hydrALAZINE 20 MG/ML VIAL SLOW IVP PRN ×2 (04:22→11:50)
[2019-05-22] MEDS: Levothyroxine 150 MCG TAB PO SCH (05:46)
[2019-05-22] MEDS: Ondansetron PF 4 MG/2 ML Vial IVP PRN (06:38)
[2019-05-22] MEDS: Lactated Ringer's 1,000 ML IV SCH ×2 (06:44→21:31)
[2019-05-22] MEDS: Insulin Glargine 35 UNITS in Pre-Filled Syringe 1 EACH SC SCH (08:10)
[2019-05-22] MEDS: metFORMIN 500 MG TAB PO SCH ×3 (08:10→16:24)
[2019-05-22] MEDS: Atenolol 25 MG TAB PO SCH (08:11)
[2019-05-22] MEDS: Enoxaparin Sodium 40 MG/0.4 ML SYRINGE SC SCH (08:11)
[2019-05-22] MEDS: cloNIDine 0.3 MG TAB PO SCH ×2 (08:12→21:30)
[2019-05-22] MEDS: Meropenem 2 GM, Admixture Fee 1 EACH in Sodium Chloride 0.9% 100 ML IVPB SCH ×3 (09:03→23:30)
[2019-05-22] MEDS: Acetaminophen 325 MG TAB PO PRN (11:50)
--- NOTE | 2019-05-22 15:11 | PDOC.HOSPP ---
- Subjective Encounter Date: 05/22/19 Encounter Time: 15:10 Subjective: Patient still in severe abd pain. Had bowel movement to day. Tramadol barely touches her. Asking for something stronger. Per nursing staff she is refusing labs and refusing all care Discussed distended GB on CT with patient, she is not interested in any intervention. Patient is interested in inpatient hospice. They are working on approval for this. She was made DNR today. - Objective Vital Signs & Weight: Vital Signs (12 hours) Temp Pulse Resp BP BP Pulse Ox 05/22/19 11:50 65 177/66 H 05/22/19 11:46 100.2 F H 65 14 177/66 H 94 L 05/22/19 09:11 175/63 H 05/22/19 08:12 198/64 H 05/22/19 08:11 72 198/64 H 05/22/19 08:00 92 L 05/22/19 07:57 99.5 F 72 14 198/64 H 92 L 05/22/19 04:22 70 169/72 H Weight Admit Weight 220 lb 7.396 oz Weight 220 lb 7.396 oz I&O: 05/21/19 05/22/19 05/23/19 06:59 06:59 06:59 Intake Total 2700 1500 1150 Balance 2700 1500 1150 Result Diagrams: 05/21/19 06:18 05/21/19 06:18 Additional Labs: Accuchecks 05/22/19 05/22/19 05/21/19 11:46 05:28 20:29 POC Glucose 143 H 156 H 119 H 05/21/19 16:24 POC Glucose 117 H Hospitalist ROS - Review of Systems Constitutional: denies: fever, chills - Medication Medications: Active Medications Generic Name Dose Route Start Last Admin Trade Name Freq PRN Reason Stop Dose Admin Acetaminophen 650 mg 05/18/19 19:26 05/22/19 11:50 Tylenol PO 650 mg Q4H PRN Administration Headache/Fever/Mild Pain (1-3) Atenolol 75 mg 05/19/19 09:00 05/22/19 08:11 Tenormin PO 75 mg QAM [facility] Administration Cholecalciferol 2,000 units 05/19/19 09:00 05/22/19 08:11 Vitamin D3 PO Not Given DAILY [facility] Clonidine 0.3 mg 05/18/19 21:00 05/22/19 08:12 Catapres PO 0.3 mg BID [facility] Administration Enoxaparin Sodium 40 mg 05/19/19 09:00 05/22/19 08:11 Lovenox SC Not Given 0900 [facility] Hydralazine HCl 10 mg 05/20/19 04:11 05/22/19 11:50 Apresoline SLOW IVP 10 mg Q6H PRN Administration SBP GREATER THAN 160 Insulin Glargine 35 units/ 0.35 mls @ 0 mls/hr 05/19/19 09:00 05/22/19 08:10 Miscellaneous Medication SC Not Given QAM [facility] Insulin Glargine 40 units/ 0.4 mls @ 0 mls/hr 05/18/19 21:00 05/21/19 20:46 Miscellaneous Medication SC Not Given HS [facility] Lactated Ringer's 1,000 mls @ 75 mls/hr 05/21/19 18:45 05/22/19 06:44 Lactated Ringer's IV 1,000 mls .[id number] [facility] Administration Meropenem 2 gm/ Miscellaneous 100 mls @ 100 mls/hr 05/22/19 08:00 05/22/19 09 :03 Medication 1 each/ Sodium IVPB 100 mls Chloride 0800,1600,2359 [facility] Administration Insulin Human Lispro 0 units 05/18/19 19:48 05/20/19 12:21 Humalog SC 4 unit .MODERATE SLIDING SC PRN Administration Moderate Correctional Scale Levothyroxine Sodium 150 mcg 05/19/19 06:00 05/22/19 05:46 Synthroid PO Not Given 0600 [facility] Loperamide HCl 2 mg 05/19/19 17:43 05/21/19 14:49 Imodium PO 2 mg DAILYPRN PRN Administration Diarrhea/Loose Stools Metformin HCl 1,000 mg 05/19/19 08:00 05/22/19 08:10 Glucophage PO Not Given BID-WM [facility] Ondansetron HCl 4 mg 05/18/19 19:26 05/22/19 06:38 Zofran IVP 4 mg Q6H PRN Administration Nausea/Vomiting Simvastatin 40 mg 05/18/19 21:00 05/21/19 20:43 Zocor PO 40 mg QPM [facility] Administration Sodium Chloride 10 ml 05/19/19 09:00 05/22/19 08:12 Flush - Normal Saline IVF Not Given Q12HR [facility] Tramadol HCl 50 mg 05/19/19 17:41 05/22/19 06:39 Ultram PO 50 mg Q4H PRN Administration Moderate Pain (4-6) Tramadol HCl 100 mg 05/19/19 17:41 05/21/19 14:44 Ultram PO 100 mg Q4H PRN Administration Severe Pain (7-10) - Exam General Appearance: NAD, awake alert Eye: PERRL, anicteric sclera ENT: normocephalic atraumatic, no oropharyngeal lesions Neck: supple, symmetric, no JVD, no thyromegaly Heart: RRR, no murmur, no gallops, no rubs Respiratory: CTAB, no wheezes, no rales, no ronchi Gastrointestinal - other findings: epigastric tenderness to mild palpation Extremities: no cyanosis, no clubbing, no edema Skin: normal turgor, no lesions, no rashes Neurological: cranial nerve grossly intact, normal sensation to touch, no focal deficits, no new deficit, vision deficit Musculoskeletal: normal tone, normal strength, no muscle wasting Hosp A/P - Plan CT abdomen: interval increase in size of metastatic tumor mass in anterior abdominal wall. Cholelithiasis with distended gallbadder. Interval increase in size of recurrent malignant tumor mass at partial colectomy site. Benign splenic hemangioam This is a 74 year old female with metastatic stage IV colon cancer/ s/p recent hemicolectomy in 2019 Metastatic colon cancer - patient states she is no longer interested in further chemotherapy -palliative on board, will try to transition to inpatient hospice, working on approval Distended gallbladder - improved with benadryl, switch to prn - LFTS trending up, switched to IV meropenem. Monitor for any allergic reaction -patient does not want any surgical intervention Hypokalemia - secondary to diarrhea - potassium 3.0, continue 40 meq potassium Leukopenia Anemia - likely from chemotherapy - WBC low - HB 9.5, stable, continue to monitor Hypothyroidism - continue levothyroxine Hyperlipidemia - continue statin Type II diabetes- controlled - lantus 35 units qam and 40 units qhs - on metformin Physical deconditioning - patient refusinG PT DIspo: patient is looking into hospice Code status: full c ode
[2019-05-22] MEDS: Simvastatin 40 MG TAB PO SCH (21:30)
[2019-05-22] MEDS: Insulin Glargine 40 UNITS in Pre-Filled Syringe 1 EACH SC SCH (21:30)
[2019-05-23] MEDS: hydrALAZINE 20 MG/ML VIAL SLOW IVP PRN (03:38)
[2019-05-23] MEDS: Loperamide HCl 2 MG CAP PO PRN ×2 (03:38→20:46)
[2019-05-23] MEDS: Levothyroxine 150 MCG TAB PO SCH (06:22)
[2019-05-23] MEDS: cloNIDine 0.3 MG TAB PO SCH ×2 (08:40→20:46)
[2019-05-23] MEDS: Atenolol 25 MG TAB PO SCH (08:41)
[2019-05-23] MEDS: Ondansetron PF 4 MG/2 ML Vial IVP PRN (08:42)
[2019-05-23] MEDS: Meropenem 2 GM, Admixture Fee 1 EACH in Sodium Chloride 0.9% 100 ML IVPB SCH (08:45)
[2019-05-23] MEDS: metFORMIN 500 MG TAB PO SCH ×2 (08:45→17:59)
[2019-05-23] MEDS: Enoxaparin Sodium 40 MG/0.4 ML SYRINGE SC SCH (08:46)
[2019-05-23] MEDS: Insulin Glargine 35 UNITS in Pre-Filled Syringe 1 EACH SC SCH (08:47)
[2019-05-23] MEDS: Lactated Ringer's 1,000 ML IV SCH (11:46)
[2019-05-23 16:47] LABS: Anion Gap 14 mmol/L (10-20); BUN (Urea Nitrogen) 8 mg/dL (9.8-20.1); Calc. Creatinine Clearance 115 mL/min (70-130); Calcium 8.6 mg/dL (7.8-10.44); Carbon Dioxide 22 mmol/L (23-31); Chloride 103 mmol/L (98-107); Estimated GFR-MDRD 86; Glucose 125 mg/dL (83-110); Sodium 136 mmol/L (136-145)
[2019-05-23 16:56] LABS: Potassium 2.9 mmol/L (3.5-5.1)
--- NOTE | 2019-05-23 17:30 | PDOC.HOSPP ---
- Subjective Encounter Date: 05/23/19 Encounter Time: 17:27 Subjective: Patient still has persistent abdominal pain but this is better. Has mild nausea. She did not vomit today. She states that hospice declined her because they didn't have supervisor coil winding hospice only short term. Therefore , referrals sent to SNF. Patient was wondering whether she would still be a candidate for chemo. I stated that she hasn't participated in therapy and is not eating, therefore not strong enough. She asked to speak to Dr. Diane. Dr. Diane has told me she is no longer a candidate for chemotherapy. - Objective Vital Signs & Weight: Vital Signs (12 hours) Pulse Resp BP BP 05/23/19 08:41 74 176/74 H 05/23/19 08:40 164/76 H 05/23/19 07:00 74 16 164/76 H Weight Admit Weight 220 lb 7.396 oz Weight 220 lb 7.396 oz I&O: 05/22/19 05/23/19 05/24/19 06:59 06:59 06:59 Intake Total 1500 2250 Balance 1500 2250 Result Diagrams: 05/21/19 06:18 05/23/19 16:16 Hospitalist ROS - Review of Systems Constitutional: denies: fever, chills Respiratory: denies: cough, dry, shortness of breath Cardiovascular: denies: chest pain, palpitations Gastrointestinal: denies: nausea, vomiting Musculoskeletal: denies: neck pain, shoulder pain Neurological: denies: weakness, numbness - Medication Medications: Active Medications Generic Name Dose Route Start Last Admin Trade Name Freq PRN Reason Stop Dose Admin Acetaminophen 650 mg 05/18/19 19:26 05/22/19 11:50 Tylenol PO 650 mg Q4H PRN Administration Headache/Fever/Mild Pain (1-3) Atenolol 75 mg 05/19/19 09:00 05/23/19 08:41 Tenormin PO 75 mg QAM SURI Administration Cholecalciferol 2,000 units 05/19/19 09:00 05/23/19 08:45 Vitamin D3 PO Not Given DAILY SURI Clonidine 0.3 mg 05/18/19 21:00 05/23/19 08:40 Catapres PO 0.3 mg BID SURI Administration Enoxaparin Sodium 40 mg 05/19/19 09:00 05/23/19 08:46 Lovenox SC Not Given 0900 [facility] Hydralazine HCl 10 mg 05/20/19 04:11 05/23/19 03:38 Apresoline SLOW IVP 10 mg Q6H PRN Administration SBP GREATER THAN 160 Insulin Glargine 35 units/ 0.35 mls @ 0 mls/hr 05/19/19 09:00 05/23/19 08:47 Miscellaneous Medication SC Not Given QAM [facility] Insulin Glargine 40 units/ 0.4 mls @ 0 mls/hr 05/18/19 21:00 05/22/19 21:30 Miscellaneous Medication SC Not Given HS [facility] Lactated Ringer's 1,000 mls @ 75 mls/hr 05/21/19 18:45 05/23/19 11:46 Lactated Ringer's IV Not Given .[id number] [facility] Insulin Human Lispro 0 units 05/18/19 19:48 05/20/19 12:21 Humalog SC 4 unit .MODERATE SLIDING SC PRN Administration Moderate Correctional Scale Levothyroxine Sodium 150 mcg 05/19/19 06:00 05/23/19 06:22 Synthroid PO Not Given 0600 [facility] Loperamide HCl 2 mg 05/19/19 17:43 05/23/19 03:38 Imodium PO 2 mg DAILYPRN PRN Administration Diarrhea/Loose Stools Metformin HCl 1,000 mg 05/19/19 08:00 05/23/19 08:45 Glucophage PO Not Given BID-WM [facility] Metoclopramide HCl 10 mg 05/19/19 16:48 05/23/19 08:42 Reglan IVP 10 mg Q6H PRN Administration Nausea/Vomiting Ondansetron HCl 4 mg 05/18/19 19:26 05/23/19 08:42 Zofran IVP 4 mg Q6H PRN Administration Nausea/Vomiting Simvastatin 40 mg 05/18/19 21:00 05/22/19 21:30 Zocor PO Not Given QPM [facility] Sodium Chloride 10 ml 05/19/19 09:00 05/23/19 08:47 Flush - Normal Saline IVF 10 ml Q12HR SURI Administration - Exam General Appearance: NAD, awake alert Eye: PERRL, anicteric sclera ENT: normocephalic atraumatic, no oropharyngeal lesions Neck: supple, symmetric, no JVD, no thyromegaly Heart: RRR, no murmur, no gallops, no rubs Respiratory: CTAB, no wheezes, no rales, no ronchi Gastrointestinal: soft Gastrointestinal - other findings: LUQ and LLQ tenderness, no rebound or guarding Extremities: no cyanosis, no clubbing, no edema Skin: normal turgor, no lesions, no rashes Neurological: cranial nerve grossly intact, normal sensation to touch, no focal deficits, no new deficit Musculoskeletal: normal tone, normal strength, no muscle wasting Psychiatric: normal affect, normal behavior, A&O x 3, oriented to person, oriented to place, oriented to time Hosp A/P - Plan CT abdomen: interval increase in size of metastatic tumor mass in anterior abdominal wall. Cholelithiasis with distended gallbadder. Interval increase in size of recurrent malignant tumor mass at partial colectomy site. Benign splenic hemangioam This is a 74 year old female with metastatic stage IV colon cancer/ s/p recent hemicolectomy in 2019 Metastatic colon cancer - patient declined by inpatient hospice - she is no longer candidate for chemotherapy per Dr. Diane - switched to oxycodone prn yesterday with improvement - needs referral to SNF Diarrhea - C diff negative, stool cultures negative - imodium qid prn Distended gallbladder - improved with benadryl, switch to prn - was on IV meropenem, will d/c and switch to cipro and flagyl. Patient does not want cholecystostomy tube. Also has no RUQ tenderness on exam Hypokalemia - secondary to diarrhea - potassium 2.9, replace with 60 meq of potassium Leukopenia Anemia - likely from chemotherapy - WBC low - HB 9.5, stable, continue to monitor Hypothyroidism - continue levothyroxine Hyperlipidemia - continue statin Type II diabetes- controlled - lantus 35 units qam and 40 units qhs - on metformin Physical deconditioning - patient advised to not refuse PT DIspo: needs SNF placement Code status: full c ode
[2019-05-23] MEDS ORDERED: Potassium Chloride 20 MEQ TAB PO SCH ×2 (17:45)
[2019-05-23 22:35] LABS: ALT (SGPT) 36 U/L (8-55); AST (SGOT) 45 U/L (5-34); Albumin 2.6 g/dL (3.4-4.8); Alkaline Phosphatase 142 U/L (40-110); Bilirubin, Direct 0.2 mg/dL (0.1-0.3); Bilirubin, Total 0.3 mg/dL (0.2-1.2); Protein, Total 5.2 g/dL (6.0-8.3)
[2019-05-23] MEDS: Insulin Glargine 40 UNITS in Pre-Filled Syringe 1 EACH SC SCH (22:49)
[2019-05-23] MEDS: Simvastatin 40 MG TAB PO SCH (22:50)
[2019-05-24] MEDS: Lactated Ringer's 1,000 ML IV SCH ×2 (00:30→13:40)
[2019-05-24] MEDS ORDERED: metroNIDAZOLE 500 MG TAB PO SCH (00:30)
[2019-05-24] MEDS ORDERED: Cipro 250 MG TAB PO SCH ×2 (00:30→20:00)
[2019-05-24] MEDS: Levothyroxine 150 MCG TAB PO SCH (05:03)
[2019-05-24 06:32] LABS: Anion Gap 10 mmol/L (10-20); BUN (Urea Nitrogen) 8 mg/dL (9.8-20.1); Calc. Creatinine Clearance 118 mL/min (70-130); Calcium 8.7 mg/dL (7.8-10.44); Carbon Dioxide 23 mmol/L (23-31); Chloride 104 mmol/L (98-107); Estimated GFR-MDRD 89; Glucose 146 mg/dL (83-110); Potassium 3.2 mmol/L (3.5-5.1); Sodium 134 mmol/L (136-145)
[2019-05-24] MEDS: Loperamide HCl 2 MG CAP PO PRN (07:18)
[2019-05-24] MEDS ORDERED: Potassium Chloride 20 MEQ TAB PO SCH (07:30)
[2019-05-24] MEDS: Atenolol 25 MG TAB PO SCH (08:31)
[2019-05-24] MEDS: cloNIDine 0.3 MG TAB PO SCH (08:32)
[2019-05-24] MEDS: Enoxaparin Sodium 40 MG/0.4 ML SYRINGE SC SCH (08:32)
[2019-05-24] MEDS: metFORMIN 500 MG TAB PO SCH ×2 (08:32→16:12)
[2019-05-24] MEDS: Insulin Glargine 35 UNITS in Pre-Filled Syringe 1 EACH SC SCH (08:32)
[2019-05-24] MEDS: metroNIDAZOLE 500 MG TAB PO SCH ×2 (08:32→14:56)
[2019-05-24] MEDS ORDERED: Diphenoxylate HCl/Atropine Tablet PO PRN (10:10)
--- NOTE | 2019-05-24 10:10 | PDOC.MOPN ---
Interval History: weak, diarrhea - Vital Signs Vital Signs: Vital Signs (12 hours) Temp Pulse Resp BP BP Pulse Ox 05/24/19 08:32 170/69 H 93 L 05/24/19 08:31 56 L 170/69 H 05/24/19 07:32 98.1 F 56 L 16 170/69 H 93 L Weight Admit Weight 220 lb 7.396 oz Weight 220 lb 7.396 oz - Physical Exam General: Alert, Oriented x3, No acute distress HEENT: Atraumatic, PERRLA, EOMI, Mucous membr. moist/pink Lungs: Clear to auscultation, Normal air movement Cardiovascular: Regular rate, Normal S1, Normal S2, No murmurs, Gallops, Rubs Abdomen: Other (hyperactive) Extremities: No clubbing, No cyanosis, No edema, Normal pulses, No tenderness/ swelling Skin: No rashes, No breakdown, No significant lesion Neurological: Normal gait, Normal speech, Strength at 5/5 X4 ext, Normal tone, Sensation intact, Cranial nerves 3-12 NL, Reflexes 2+ Psych/Mental Status: Mental status NL, Mood NL - Labs Result Diagrams: 05/21/19 06:18 05/24/19 05:41 Lab results: Laboratory Results - last 24 hr 05/24/19 05:41: Vitamin B12 128 L 05/24/19 05:41: Folate 31.40 05/24/19 05:41: Sodium 134 L, Potassium 3.2 L, Chloride 104, Carbon Dioxide 23, Anion Gap 10, BUN 8 L, Creatinine 0.65, Estimated GFR (MDRD) 89, Glucose 146 H, Calcium 8.7 05/23/19 22:07: Total Bilirubin 0.3, Direct Bilirubin 0.2, AST 45 H, ALT 36, Alkaline Phosphatase 142 H, Serum Total Protein 5.2 L, Albumin 2.6 L 05/23/19 22:07: Potassium 3.0 L 05/23/19 16:16: Sodium 136, Potassium 2.9 L*, Chloride 103, Carbon Dioxide 22 L , Anion Gap 14, BUN 8 L, Creatinine 0.67, Estimated GFR (MDRD) 86, Glucose 125 H , Calcium 8.6 Status: lab reviewed by me A/P - Problem (1) Colon cancer metastasized to mesenteric lymph nodes Current Visit: Yes Code(s): C18.9 - MALIGNANT NEOPLASM OF COLON, UNSPECIFIED; C77.2 - SECONDARY AND UNSP MALIGNANT NEOPLASM OF INTRA-ABD NODES Status: Acute (2) Nausea & vomiting Current Visit: Yes Code(s): R11.2 - NAUSEA WITH VOMITING, UNSPECIFIED Status : Acute - Plan Plan: discussion about treatment versus hospice. Patient agrees that quality of life is focus. plan to go to [facility], rehab, or NH. add lomotil for diarrhea.
--- NOTE | 2019-05-24 10:40 | PDOC.GSPN ---
Surgery Progress Note: Subj - Subjective Narrative: Patient has no complaints Surgery Progress Note: Obj - Vital signs Vital signs: Vital Signs - Most Recent Temp Pulse Resp BP Pulse Ox 98.1 F 56 L 16 170/69 H 93 L 05/24/19 07:32 05/24/19 08:31 05/24/19 07:32 05/24/19 08:32 05/24/19 08:32 - Physical Exam General: no distress Abdomen: soft, appropriately tender Wound: dressing clean,dry,intact Surgery Progress Note: Results - Labs Result Diagrams: 05/21/19 06:18 05/24/19 05:41 Lab results: Laboratory Results - last 24 hr 05/24/19 05/24/19 05/24/19 05:41 05:41 05:41 Sodium 134 L Potassium 3.2 L Chloride 104 Carbon Dioxide 23 Anion Gap 10 BUN 8 L Creatinine 0.65 Estimated GFR (MDRD) 89 Glucose 146 H Calcium 8.7 Vitamin B12 128 L Folate 31.40 - Radiology Interpretation CT scan - abdomen Status: report reviewed by me (Mass at midline upper anterior abdominal wall with 2 components, one straddling the abdominal wall mu scles and protruding into the peritoneal cavity posteriorly, and subcutaneous fat anteriorly currently measures 5 x 5.5 x 7 cm. It has significantly grown. Another mass in the subcutaneous fat of the left anterior subcutaneous fat pannus just anterior to th e lower portion of the left rectus abdominis muscle has also grown, to current dimensions of 2 x 1.5 x 4.5 cm. IMPRESSION: 1. Interval increase in sizes of the metastatic neoplastic tumor mass is in the anterior abdominal wa ll and adjacent subcutaneous fat. 2. Cholelithiasis within a distended gallbladder. 3. Interval increase in size of residual or recurrent malignant tumor mass at the partial colectomy s ite at the region of hepatic flexure of colon. 4. Benign splenic hemangioma. 5. No acute findings) Chest x-ray Status: report reviewed by me (IMPRESSION: 1. The right internal jugular implantable vascular access port tip has retracted, and a loop has form ed in the catheter at the right neck. 2. No acute cardiopulmonary findings. 3. Pacemaker. 4. Status post open heart surgery. 5. Ectasia and tortuosity of thoracic aorta.) US - venous Status: report reviewed by me (No evidence for deep venous thrombosis. (RLE)) Surgery Progress Note: A/P - Problem (1) Colon cancer metastasized to mesenteric lymph nodes Current Visit: Yes Code(s): C18.9 - MALIGNANT NEOPLASM OF COLON, UNSPECIFIED; C77.2 - SECONDARY AND UNSP MALIGNANT NEOPLASM OF INTRA-ABD NODES Status: Acute - Plan Plan: Tumor eroding through old midline incision -Palliative care -Probably going to [facility]
[2019-05-24] MEDS: hydrALAZINE 20 MG/ML VIAL SLOW IVP PRN (11:36)
[2019-05-24] MEDS: oxyCODONE 5 MG TAB PO PRN ×2 (11:37→16:45)
[2019-05-24] MEDS ORDERED: Cyanocobalamin 1000 MCG/ML VIAL IM SCH (12:30)
--- NOTE | 2019-05-24 13:54 | PQF ---
CLINICAL DOCUMENTATION IMPROVEMENT CLARIFICATION FORM: ICD-10 Updated PLEASE DO AN ADDENDUM TO THE PROGRESS NOTE WITH ANY DOCUMENTATION UPDATES OR ADDITIONS AND CARRY THROUGH TO DC SUMMARY. THANK YOU. Date: 05/24/2019 ATTN: Dr. Parikh Please exercise your independent, professional judgment in responding to the clarification form. Clinical indicators are provided on the bottom of this form for your review Please check appropriate box(s): [ ] Protein Calorie Malnutrition: [ ] Mild X[ ] Moderate [ ] Severe [ ] Other Malnutrition (please specify) [ ] Other diagnosis [ ] Unable to determine In addition, please specify: Present on Admission (POA): [ ] Yes [ ] No [ ] Unable to determine CLINICAL INDICATORS - SIGNS / SYMPTOMS / LABS / RESULTS AND LOCATION IN MR RISK FACTORS / RESULTS AND LOCATION IN MR 05/20 ([facility]) Metastatic rapidly progressive adenocarcinoma of the colon Diarrhea and nausea and vomiting secondary to tumor and chemotherapy Weakness secondary to malnutrition and the above 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 Metastatic Colon Cancer. 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 Assessment for MST Score 1 (decreased appetite) Order 05/22: Supp: Mighty Shake TID with meals Moderate Malnutrition (in acute illness) Energy Intake: <75% of estimated energy requirement for > 7 days Weight Loss: 1-2%/1 week; 5%/ 1 month; 7.5%/3 months Other: mild body fat loss; mild muscle mass loss; mild fluid accumulation; Severe Malnutrition (in acute illness) Energy Intake: < 50% of estimated energy requirement for > 5 days Weight Loss: >1-2%/1 week; >5%/1 month; >7.5%/3 months Other: moderate body fat loss; moderate muscle mass loss; moderate- severe fluid accumulation; measurably reduced hyperbaric technician strength Moderate Malnutrition (in chronic illness) Energy Intake: <75% of estimated energy requirement for >1 month Weight Loss: 5%/1 month; 7.5%/3 months; 10%/6 months; 20%/1 year Other: mild body fat loss; mild muscle mass loss; mild fluid accumulation Severe Malnutrition (in chronic illness) Energy Intake: <75% of estimated energy requirement for >1 month Weight Loss: >5%/1 month; >7.5%/3 months; >10%/6 months; >20%/1 year Other: severe body fat loss; severe muscle mass loss; severe fluid accumulation; measurably reduced hyperbaric technician strength Thank you, Luz (This form is maintained as a part of the permanent medical record) 2015 [employer] All Rights Reserved Luz Amaya RN, BSN [email or web address] Office: [phone] [facility] HOSPITALAlfredo
[2019-05-24 15:42] VITALS: BP 160/74; TEMP 98.5
--- NOTE | 2019-05-24 22:45 | DIS ---
DATE OF ADMISSION: 05/18/2019 DATE OF DISCHARGE: 05/24/2019 CONSULTANTS: Palliative Care with Jenni Clay, Oncology with Dr. Trudy Diane. BRIEF HISTORY OF PRESENT ILLNESS: This is a 74-year-old female with a past medical history of colon cancer status post resection in 01/2019, who was undergoing chemotherapy, who presented to the emergency room with intractable nausea and vomiting since the week prior. The patient reported that she was taking chronic Keflex for an infection in her leg in 2016 and she reported a history of recurrent cellulitis. The patient underwent a CT scan of her abdomen, which showed an increase in the size of her metastatic neoplastic tumor mass in the anterior abdominal wall, cholelithiasis with a distended gallbladder. She was admitted for IV fluids and intractable nausea and vomiting. Intractable nausea and vomiting, possibly secondary to metastatic colon cancer versus cholelithiasis:. The patient did have a distended gallbladder on her CT abdomen and increasing size of her neoplastic mass. The patient did not want any surgical intervention or any procedures done for this. General Surgery was consulted and recommended a conservative approach. The patient was given IV fluids and IV antiemetics. She was given IV vancomycin from the to the , then switched to meropenem on the and finally oral cipro and flagyl. She will be discharged on oral cipro and flagyl for an additional week. She underwent consultation with Palliative Care since she was not interested in further chemotherapy. Oncology felt she wasn't a candidate for further therapy either. Inpatient hospice however declined her since they felt she needed long- term care. Patient is slowly starting to improve her oral intake. She will be discharged to [facility]. Outpatient hospice eval can be done there. Diarrhea: The patient reported multiple episodes of loose stools 4 to 5 a day. She had stool cultures and C diff that was negative. She was started on Imodium q.i.d. without much relief. Oncology added Lomotil p.r.n., which the patient stated helped with her diarrhea. Abdominal pain/distended gallbladder: patient had abdominal pain from her colon cancer. She was given oral tramadol up to 100 mg daily however this did not control her pain. She had CT abdomen which showed increasing size of neoplastic tumor mass and distended gallbladder. She refused all treatment. She was switched to oxycodone 2.5 mg and received a dose on the with improvement in pain. However since no triplicate prescription availbale, she will be discharged back on tramadol 50 mg q5 hours and prn and antibiotics for a week with cipro and flagyl. Hypokalemia/leukopenia/ vitamin B12 deficiency anemia: The patient was noted to have persistent hypokalemia in the range of 2.9 to 3.0. On the day of discharge, her potassium was 3.2. She was given potassium supplementation and was advised to eat more bananas or bright fruits and vegetables. With regard to her anemia, this stayed stable around 9.1. She did have a vitamin B12 level checked, which was low at 128. She was started on IM vitamin B12 once weekly, because it was thought that her absorption may be impaired to oral vitamin B12. She was discharged with this on discharge. Hypothyroidism: The patient had a TSH on admission, which is elevated at 13. Her outpatient levothyroxine dose was increased at 150 mcg daily. Type 2 diabetes: She will resume on her Lantus 35 units q.a.m. and 40 units at bedtime. Physical deconditioning: The patient was initially refusing PT in the hospital, because she wanted to get hospice. However, she is willing to do PT at the SNF. Therefore, outpatient referral is placed. DISCHARGE PHYSICAL EXAMINATION: VITAL SIGNS: Temperature 98.5, heart rate 61, blood pressure 128/71, respiratory rate 16, O2 saturation 96% on room air, and blood pressure 160/74. GENERAL: The patient is alert, awake, and oriented x3. CVS: Regular rate and rhythm with no murmurs, rubs, or gallops. LUNGS: Clear to auscultation bilaterally. ABDOMEN: The patient has a solid mass protruding from her abdomen. There is no purulent discharge. She does have epigastric and left upper quadrant and left lower quadrant tenderness with no rebound, guarding, or rigidity. EXTREMITIES: She has chronic venous stasis in her lower extremities with chronic erythema on her right lower extremities. This is not warm or tender to palpation. PERTINENT LABORATORY DATA: CBC on 05/21: shows a white count of 3.7, hemoglobin 9.1, hematocrit 28, and platelet count 252. BMP on 05/24: sodium was 134, potassium was 3.2. LFTs on 05/23,: AST was 45, ALT 36, and alkaline phosphatase 142. Vitamin B12 on : 128. Folate was 31.4. TSH on : 13.78. PERTINENT IMAGING STUDIES: Chest x-ray on 05/18 showed no acute cardiopulmonary findings. She does have a vascular access port, which is overlying the right clavicular head. She has ectasia and tortuosity of the thoracic aorta. CT abdomen and pelvis on 05/18 :mentions interval increase in size of the metastatic neoplastic tumor mass in the anterior abdominal wall. Cholelithiasis with a distended gallbladder. Interval increase in size of residual or recurrent malignant tumor mass. The partial colectomy site at the region of the hepatic flexure of the colon. Benign splenic hemangioma. Vascular ultrasound: Shows no evidence of DVT. DISCHARGE CONDITION: The patient is stable for SNF. ACTIVITY: The patient is mostly bed-bound, however, will try to participate in PT. DIET: Heart-healthy diet. DISPOSITION: The patient will be discharged to [facility]. DISCHARGE MEDICATIONS: New prescriptions: 1. B12 1000 mcg IM q.7 days. 2. Cipro 250 mg p.o. b.i.d. 3. Lomotil 1 tablet p.o. q.6 hours p.r.n. 4. Levothyroxine 150 mcg p.o. at 6:00 a.m. 5. Flagyl 500 mg p.o. t.i.d. 6. Tramadol 50 mg p.o. q.6 hours p.r.n. All other home medications were resumed. Please refer to discharge worksheet. DISCHARGE INSTRUCTIONS: The patient should follow up with her PCP in a week. She should have her vitamin B12 levels be checked to adjust future dosing of her B12 supplementation. She should continue Cipro and Flagyl for a week. She should have a repeat BMP done to assess resolution of her hypokalemia and consideration of repeat LFTs. She also needs a repeat thyroid function tests in 4 to 6 weeks since her levothyroxine dose is increased in the hospital. [facility] ID: [id number] [facility]
[2019-05-31] MEDS ORDERED: Cyanocobalamin 1000 MCG/ML VIAL IM SCH (09:00)
== END 2019-05-24 17:40 | DRG 375 ==
LOC: ERS 11:47 → SURG B 18:37
PROVIDERS: ADMIT Family Medicine; ATTEND Family Medicine
DX: C18.9 Malignant neoplasm of colon, unspecified (principal); C77.2 Secondary and unspecified malignant neoplasm of intra-abdominal lymph nodes; L03.115 Cellulitis of right lower limb; K52.1 Toxic gastroenteritis and colitis; E44.0 Moderate protein-calorie malnutrition; G89.3 Neoplasm related pain (acute) (chronic); K80.20 Calculus of gallbladder without cholecystitis without obstruction; R11.2 Nausea with vomiting, unspecified; Z66 Do not resuscitate; Z51.5 Encounter for palliative care; E11.9 Type 2 diabetes mellitus without complications; E03.9 Hypothyroidism, unspecified; E78.5 Hyperlipidemia, unspecified; I10 Essential (primary) hypertension; F43.10 Post-traumatic stress disorder, unspecified; T45.1X5A Adverse effect of antineoplastic and immunosuppressive drugs, initial encounter; Z96.651 Presence of right artificial knee joint; I48.91 Unspecified atrial fibrillation; E87.6 Hypokalemia; D70.1 Agranulocytosis secondary to cancer chemotherapy; D64.81 Anemia due to antineoplastic chemotherapy; E66.9 Obesity, unspecified; D51.9 Vitamin B12 deficiency anemia, unspecified; F32.9 Major depressive disorder, single episode, unspecified; Z68.35 Body mass index [BMI] 35.0-35.9, adult; Z79.899 Other long term (current) drug therapy; Z87.891 Personal history of nicotine dependence; Z95.1 Presence of aortocoronary bypass graft; Z95.0 Presence of cardiac pacemaker; Z90.49 Acquired absence of other specified parts of digestive tract; Z90.710 Acquired absence of both cervix and uterus; Z88.5 Allergy status to narcotic agent; Z88.2 Allergy status to sulfonamides; Z88.8 Allergy status to other drugs, medicaments and biological substances; Z91.040 Latex allergy status; Z91.018 Allergy to other foods; Z88.1 Allergy status to other antibiotic agents; Z88.0 Allergy status to penicillin; Z79.4 Long term (current) use of insulin; Z79.890 Hormone replacement therapy; Z85.89 Personal history of malignant neoplasm of other organs and systems
CPT/HCPCS: 36415; 36416; 51701; 71045; 74177; 80048; 80053; 80076; 80202; 81003; 81015; 82607; 82746; 83630; 83690; 83735; 84439; 84443; 84484; 85025; 85027; 87040; 87045; 87046; 87086; 87324; 87427; 87449; 93005; 94760; 96365; 96366; 96375; 96376; A4353; J0360; J0696; J1100; J1200; J1650; J1815; J2185; J2405; J2550; J2765; J3370; J3420; J3480; J3490; J7050; Q9967